=== PATIENT | male | born 1960 | race African-American/Black ===

== ENCOUNTER 2017-03-04 06:10 | Emergency (ER) | payer MEDICARE ==
[2017-03-04] MEDS ORDERED: Sterile Water 10 ML ONE (07:17)
[2017-03-04] MEDS ORDERED: methylPREDNISolone Sod Succ/PF 125 MG/2 ML VIAL ONE (07:17)
--- NOTE | 2017-03-04 10:19 | RAD ---
AP VIEW CHEST: HISTORY: Asthma. FINDINGS: AP view chest is obtained on 03/04/17. Comparison is made to previous exam from 12/22/16. AP view chest demonstrates calcification of the aorta. The lungs are well aerated. No evidence of active intrathoracic disease seen. No evidence of effusions, pneumonia, or pneumothorax seen. IMPRESSION: Unremarkable AP view chest. POS: [facility]
== END 2017-03-04 08:00 | disposition home or self-care (01) ==
LOC: ERS 06:10
DX: J45.901 Unspecified asthma with (acute) exacerbation (principal); J32.9 Chronic sinusitis, unspecified; E11.9 Type 2 diabetes mellitus without complications; I10 Essential (primary) hypertension; Z79.4 Long term (current) use of insulin; Z79.899 Other long term (current) drug therapy
CPT/HCPCS: 71010; 94640; 96374; A4216; J2930; J7620

== ENCOUNTER 2017-04-08 04:29 | Observation (INO) | payer MEDICARE ==
[2017-04-08 04:53] LABS: Sodium 137 mmol/L (135-148)
[2017-04-08 04:56] LABS: Modified Allen's Test POSITIVE; Vent NO
[2017-04-08 04:57] LABS: Mode MASK
[2017-04-08 04:59] LABS: #Basophils 0.1 thou/uL (0.0-0.2); #Eosinphils 0.9 thou/uL (0.0-0.7); #Lymphocytes 3.6 thou/uL (1.20-3.40); #Monocytes 0.9 thou/uL (0.11-0.59); #Neutrophils 5.6 thou/uL (1.40-6.50); %Basophils 1.3 % (0.0-1.0); %Eosinophils 8.5 % (0.0-10.0); %Lymphocytes 32.5 % (21.0-51.0); %Monocytes 7.7 % (0.0-10.0); Hematocrit 50.8 % (42.0-52.0); Mean Platelet Volume 7.1 fL (7.4-10.4); Red Blood Cell (RBC) Count 5.51 mill/uL (4.70-6.10); White Blood Cell (WBC) Count 11.2 thou/uL (4.8-10.8)
[2017-04-08 05:23] LABS: ALT (SGPT) 74 U/L (8-55); AST (SGOT) 77 U/L (5-34); Alkaline Phosphatase 100 U/L (40-150); Anion Gap 14 mmol/L (10-20); BUN (Urea Nitrogen) 19 mg/dL (8.4-25.7); Bilirubin, Total 0.4 mg/dL (0.2-1.2); Calc. Creatinine Clearance 0 mL/min (70-130); Calcium 8.9 mg/dL (7.8-10.44); Carbon Dioxide 26 mmol/L (22-29); Chloride 101 mmol/L (98-107); Estimated GFR-MDRD 67; Globulin 4.5 g/dL (2.4-3.5); Protein, Total 7.7 g/dL (6.0-8.3)
[2017-04-08 05:26] LABS: Troponin I Less than 0.010 ng/mL (< 0.028)
[2017-04-08] MEDS ORDERED: Albuterol Sulfate 2.5 mg/3 ml Neb ONE (05:29)
[2017-04-08] MEDS ORDERED: Senokot 8.6 MG TAB PO PRN (08:10)
[2017-04-08] MEDS ORDERED: Ondansetron ODT 4 MG TAB PO PRN (08:10)
[2017-04-08] MEDS ORDERED: Acetaminophen 325 MG TAB PO PRN (08:10)
[2017-04-08] MEDS ORDERED: Ondansetron HCl/PF 4 MG/2 ML Vial IVP PRN (08:10)
[2017-04-08] MEDS ORDERED: hydrALAZINE 20 MG/ML VIAL SLOW IVP PRN (08:10)
[2017-04-08] MEDS ORDERED: Chloraseptic Spray 180 ml Bottle PO PRN (08:10)
[2017-04-08] MEDS ORDERED: Sodium Chloride 0.65% Nasal 44 ML BOT EA NARE PRN (08:10)
[2017-04-08] MEDS ORDERED: Eucerin (Mineral Oil/Petrolatum,White) 30 gm Jar TOP PRN (08:10)
[2017-04-08] MEDS ORDERED: Artificial Tears 18 DROP/0.9 ML EA EYE PRN (08:10)
[2017-04-08] MEDS ORDERED: cloNIDine 0.1 MG TAB PO PRN (08:10)
[2017-04-08] MEDS ORDERED: Loperamide HCl 2 MG CAP PO PRN (08:10)
[2017-04-08] MEDS ORDERED: Milk Of Magnesia 30 ML UDCUP PO PRN (08:10)
[2017-04-08] MEDS ORDERED: Sodium Chloride 0.9% 1,000 ML IV SCH (08:10)
[2017-04-08] MEDS ORDERED: Dextrose 5% in Water 1,000 ML IV PRN (08:10)
[2017-04-08] MEDS ORDERED: Benzonatate 100 MG CAP PO PRN (08:10)
[2017-04-08] MEDS ORDERED: HYDROcodone/Acetaminophen 10/325 mg Tablet PO PRN (08:10)
[2017-04-08] MEDS ORDERED: Zolpidem Tartrate 5 MG TAB PO PRN (08:10)
[2017-04-08] MEDS ORDERED: metFORMIN 500 MG TAB PO SCH ×2 (08:10→08:30)
[2017-04-08] MEDS ORDERED: Dextrose 50% Abboject 50 ML SYRINGE SLOW IVP PRN (08:10)
[2017-04-08] MEDS ORDERED: HumaLOG 300 UNITS/3 ML VIAL SC PRN (08:10)
[2017-04-08] MEDS ORDERED: Loratadine 10 MG TAB PO PRN (08:10)
[2017-04-08] MEDS ORDERED: Mag-Al 1200 mg/1200 mg/30 ML UDCUP PO PRN (08:10)
[2017-04-08 08:13] LABS: Troponin I Less than 0.010 ng/mL (< 0.028)
[2017-04-08 08:22] VITALS: BMI 31.8
--- NOTE | 2017-04-08 08:34 | RAD ---
1 VIEW CHEST: Date: 04/08/17 COMPARISON: 03/04/17. HISTORY: Shortness of breath. FINDINGS: Portable upright chest demonstrates atherosclerosis of the aorta. Normal cardiac silhouette. Pulmona ry vessels and hilum are normal. Costophrenic angles are clear. No mass. No consolidation. No osseou s abnormalities or pneumothorax. IMPRESSION: 1. No acute cardiopulmonary process. 2. Atherosclerosis. POS: [facility]
[2017-04-08] MEDS ORDERED: FLU VACC QS2017-18 36 mo. & older 0.5 ML SYRINGE IM ONE (08:45)
[2017-04-08] MEDS: guaiFENesin ER 600 MG TAB PO SCH ×2 (09:32→20:20)
[2017-04-08] MEDS: Amlodipine 10 MG TAB PO SCH (09:33)
[2017-04-08] MEDS: cloNIDine 0.1 MG TAB PO SCH ×2 (09:34→20:20)
[2017-04-08] MEDS: Lisinopril 20 MG TAB PO SCH ×2 (09:35→20:20)
[2017-04-08] MEDS: Fluticasone Propionate Nasal Spray 16 gm Bottle NASAL SCH (09:36)
[2017-04-08] MEDS: Tamsulosin HCl 0.4 MG CAP PO SCH (09:36)
[2017-04-08] MEDS: HumaLOG 300 UNITS/3 ML VIAL SC PRN ×3 (12:15→17:24)
--- NOTE | 2017-04-08 14:05 | HP ---
PRIMARY CARE PHYSICIAN: Dr. Yara Gilmore. REASON FOR ADMISSION: COPD exacerbation, acute hypoxic respiratory failure. HISTORY OF PRESENT ILLNESS: A 56-year-old -[place] male who has underlying history of COPD as well as ex-smoker, who came to the emergency room for evaluation of increasing shortness of breath. Patient reports that for the last one week, he has difficulty breathing. He was trying to avoid hospitalization by using more and more his nebulizations. For the last couple of days, he was feeling more short of breath and that is why he was needing more and more nebulization as well, but he was trying to avoid to come to the emergency room. Last night, he was not able to make it and he was not able to breathe at all and that is why he has to call paramedics and he went to his home , he was saturating 87%. The patient was given albuterol nebulization and Solu- Medrol in the root, but when he arrived to the emergency room, he was still short of breath and he was not feeling up to his normal. In the emergency room, he was treated with again one more time nebulization and after that the patient felt better, but he was still not feeling up to his baseline and that is why we decided to keep this patient in the hospital. The patient reports that when he was feeling shortness of breath. He was feeling tightness in his chest and he was also feeling mild diaphoresis. He denies any recent sick exposure. He denies any recent allergy symptoms. He denies any nasal stuffiness. He denies any cough, hemoptysis or productive of sputum. He denies any fever or chills. He denies any angina. He denies any UTI symptoms. He denies any constipation or diarrhea. The patient reports that his shortness of breath is gotten worse because of weather change. REVIEW OF SYSTEMS: The following complete review of systems was negative, unless otherwise mentioned in the HPI or below: CONSTITUTIONAL: Weight loss or gain, ability to conduct usual activities. SKIN: Rash, itching. EYES: Double vision, pain. ENT/MOUTH: Nose bleeding, neck stiffness, pain, tenderness. CARDIOVASCULAR: Palpitations, dyspnea on exertion, orthopnea. RESPIRATORY: Shortness of breath, wheezing, cough, hemoptysis, fever or night sweats. GASTROINTESTINAL: Poor appetite, abdominal pain, heartburn, nausea, vomiting, constipation, or diarrhea. GENITOURINARY: Urgency, frequency, dysuria, nocturia. MUSCULOSKELETAL: Pain, swelling. NEUROLOGIC/PSYCHIATRIC: Anxiety, depression. ALLERGY/IMMUNOLOGIC: Skin rash, bleeding tendency. Please see my HPI for pertinent positives and negatives. All other review of system reviewed and negative except as mentioned in the HPI. PAST MEDICAL HISTORY: Diabetes type 2 on insulin, hypertension, benign enlargement of prostate and COPD. PAST SURGICAL HISTORY: The patient reports that he had sinus surgery in the past. PAST PSYCHIATRIC HISTORY: Reviewed and negative. SOCIAL HISTORY: Patient is a former drug abuser. He abused marijuana, but he denies any ongoing abuse of marijuana. He also reports that he quit smoking for about 1 year. He drinks alcohol socially occasionally. He also denies any other illicit drug abuse for the last one year. He lives at home with family. FAMILY HISTORY: No strong family history of premature coronary artery disease, stroke or cancer. ALLERGIES: ASPIRIN, IODINE, LATEX and NSAID. CURRENT HOME MEDICATIONS: Lisinopril 20 mg twice daily, Flomax 0.4 mg p.o. daily, albuterol nebulization and inhaler as needed basis, amlodipine 10 mg daily, metformin 1000 mg twice daily, Lantus 30 units at bedtime, Humalog insulin as per sliding scale, clonidine 0.1 mg twice daily, cetirizine 10 mg daily and prednisone. EMERGENCY ROOM COURSE: Patient has received Solu-Medrol and DuoNeb therapy by paramedics and the patient was given another round of albuterol nebulization in the emergency room. PHYSICAL EXAMINATION: VITAL SIGNS: On arrival, blood pressure 158/92, pulse 94, respiratory rate 18, temperature 98.4, saturation 94% on 4 liter oxygen. Weight 108.9 kilograms. GENERAL: Patient is currently alert, awake, no obvious acute distress. HEAD: Normocephalic, atraumatic. EYES: Pupils round, reactive to light. Extraocular muscles intact. ENT: Oropharynx within normal limits. Moist mucous membranes. No oral lesions. No pharyngeal erythema, no exudate. NECK: Supple. Range of motion is normal. No meningeal signs of irritation. LUNGS: Bilateral end expiratory wheezing heard. No rales, no rhonchi. No accessory muscles of respiration in use. CARDIAC: S1, S2 regular. No murmur, no gallop, no rub. ABDOMEN: Obesity present. Bowel sounds present, nontender, nondistended. No organomegaly, no mass, no suprapubic tenderness. BACK: No CVA tenderness. EXTREMITIES: Upper extremity: Passive movement of all joints are normal. Lower extremity: No edema. Good peripheral pulsation. SKIN: No skin rash. HEMATOLOGICAL: No lymphadenopathy. PSYCHIATRIC: Normal affect. SIGNIFICANT LABS: 1. EKG based on my review left anterior fascicular block, left atrial enlargement. 2. Chest x-ray based on my review, no acute cardiopulmonary process. CBC: WBC 11.2, hemoglobin 16.0, platelets 342. ABG: pH 7.41, CO2 41.5, O2 66.1, bicarbonate 25.9, saturation 94.1. 3. BMP: Sodium 137, potassium 3.6, chloride 101, carbon dioxide 26, BUN 19, creatinine 1.33, glucose 239, calcium 8.9. 4. LFTs: AST 77, ALT 74, alkaline phosphatase 100. Albumin 3.2. Cardiac enzymes negative x2. BNP is 21.3. ASSESSMENT AND PLAN/IMPRESSION: 1. Acute chronic obstructive pulmonary disease exacerbation. This patient's clinical presentation is consistent with chronic obstructive pulmonary disease flareup, most likely precipitated by weather changes. At this point, the patient has almost 60% improvement when I saw last in the emergency room. We will keep this patient as an observation status. We are expecting that he will get better in next 24-48 hours. While in hospital, we will continue with DuoNeb q.4 hourly, Dulera 2 puffs inhalation b.i.d., Solu-Medrol 40 mg IV q.6 hourly, Mucinex 600 mg twice daily, Tessalon and Robitussin p.r.n. basis. Patient will get flu vaccination during this admission. We will monitor his oxygen saturation. We will also consider empiric antibiotic therapy with Levaquin 500 mg daily. We will also add Flonase nasal spray. 2. Acute hypoxic respiratory failure that was on admission, but improved when I saw this patient. At this point the patient does not need oxygen therapy, but we will continue to watch his oxygen saturation at least before discharge. We will also recheck his oxygen after walking 4 minutes. 3. Diabetes type 2. We are expecting with that will get worse with steroid therapy, but will continue with Levemir insulin 30 units subQ at bedtime and Humalog insulin as per sliding scale aggressively and will monitor Accu-Chek every 3 hourly and cover with each time with insulin to avoid hyperglycemia from steroid. 4. Hypertension. We will continue lisinopril 20 mg twice daily, clonidine 0.1 mg twice daily and amlodipine 10 mg p.o. daily and will also use p.r.n. hydralazine. 5. Benign enlargement of prostate. We will continue Flomax 0.4 mg p.o. daily. 6. Deep venous thrombosis prophylaxis not needed because we are expecting discharge in 24 hours. 7. Gastrointestinal prophylaxis, Protonix 40 mg p.o. daily. 8. CODE STATUS: The patient is FULL CODE. Patient does not have any surrogate decision maker. 9. Transamenitis: CHECK hepatitis profile and repeat LFT Disposition plan based on clinical course. We are expecting patient's stay in the hospital for 24-48 hours. Plan of care discussed with the patient and family member. EVAN
[2017-04-08] MEDS: metFORMIN 500 MG TAB PO SCH (17:43)
[2017-04-08] MEDS: Mometasone/Formoterol 120 PUFF INHALER INH SCH (18:11)
[2017-04-08] MEDS ORDERED: Insulin Detemir 100 UNITS/ML 30 UNITS in Pre-Filled Syringe 1 EACH SC SCH (21:00)
[2017-04-09] MEDS: Diabetic Tussin 200 MG/10 ML UDCUP PO PRN ×2 (01:45→09:27)
[2017-04-09] MEDS ORDERED: Lidocaine 2% Viscous Solution 20 ML, Aluminum & Magnesium Hydroxide 30 ML, Donnatal Eli... SSW SCH ×3 (02:15)
[2017-04-09 05:23] LABS: #Lymphocytes 1.7 thou/uL (1.20-3.40); #Monocytes 0.5 thou/uL (0.11-0.59); #Neutrophils 14.6 thou/uL (1.40-6.50); %Basophils 0.2 % (0.0-1.0); %Eosinophils 0.1 % (0.0-10.0); %Lymphocytes 10.2 % (21.0-51.0); %Monocytes 2.8 % (0.0-10.0); Hematocrit 49.3 % (42.0-52.0); Mean Platelet Volume 7.3 fL (7.4-10.4); Red Blood Cell (RBC) Count 5.28 mill/uL (4.70-6.10); White Blood Cell (WBC) Count 16.9 thou/uL (4.8-10.8)
[2017-04-09] MEDS: HumaLOG 300 UNITS/3 ML VIAL SC PRN (05:34)
[2017-04-09 05:44] LABS: ALT (SGPT) 69 U/L (8-55); AST (SGOT) 59 U/L (5-34); Alkaline Phosphatase 79 U/L (40-150); Anion Gap 15 mmol/L (10-20); BUN (Urea Nitrogen) 19 mg/dL (8.4-25.7); Bilirubin, Total 0.3 mg/dL (0.2-1.2); Calc. Creatinine Clearance 103 mL/min (70-130); Calcium 8.8 mg/dL (7.8-10.44); Carbon Dioxide 25 mmol/L (22-29); Chloride 100 mmol/L (98-107); Estimated GFR-MDRD 73; Globulin 4.1 g/dL (2.4-3.5); Protein, Total 7.3 g/dL (6.0-8.3)
[2017-04-09] MEDS: Mometasone/Formoterol 120 PUFF INHALER INH SCH (07:22)
--- NOTE | 2017-04-09 09:17 | PDOC.PN ---
- Subjective Encounter Start Date: 04/09/17 Encounter Start Time: 09:00 Subjective: Patient feeling much better this AM. On 2L O2 but patient doesn't think -: he needs it. Cough resolved. SOB improved. - Objective Resuscitation Status: Resuscitation Status FULL:Full Resuscitation MAR Reviewed: Yes Vital Signs & Weight: Vital Signs (12 hours) Temp Pulse Resp BP Pulse Ox 04/09/17 07:34 98.4 F 98 24 H 152/89 H 92 L 04/09/17 07:22 85 16 94 L 04/09/17 07:20 85 16 94 L 04/09/17 03:13 98.2 F 101 H 24 H 140/82 92 L 04/09/17 01:53 102 H 14 92 L 04/08/17 23:00 98.4 F 104 H 24 H 166/96 H 92 L 04/08/17 22:22 102 H 14 93 L Weight Weight 245 lb I&O: 04/08/17 04/09/17 04/10/17 06:59 06:59 06:59 Intake Total 2851 Output Total 1775 Balance 1076 Result Diagrams: 04/09/17 05:00 04/09/17 05:00 Additional Labs: Accuchecks 04/09/17 04/08/17 04/08/17 05:09 23:06 20:19 POC Glucose 184 H 161 H 220 H 04/08/17 04/08/17 04/08/17 17:15 14:35 11:11 POC Glucose 259 H 388 H 436 H 04/08/17 09:17 POC Glucose 331 H Phys Exam - Physical Examination Constitutional: NAD HEENT: moist MMs bilateral expiratory wheezes, decent airmovement throughout, nml WOB Cardiovascular: RRR, no significant murmur Gastrointestinal: soft, positive bowel sounds Musculoskeletal: no edema Neurological: non-focal, moves all 4 limbs Psychiatric: normal affect, A&O x 3 Dx/Plan (1) COPD exacerbation Code(s): J44.1 - CHRONIC OBSTRUCTIVE PULMONARY DISEASE W (ACUTE) EXACERBATION Status: Acute Comment: Improved, d/c oxygen and home if does well off of it. (2) Acute and chronic respiratory failure with hypoxia Code(s): J96.21 - ACUTE AND CHRONIC RESPIRATORY FAILURE WITH HYPOXIA Status: Acute (3) Diabetes mellitus type 2 in obese Code(s): E11.69 - TYPE 2 DIABETES MELLITUS WITH OTHER SPECIFIED COMPLICATION; E66.9 - OBESITY, UNSPECIFIED Status: Chronic (4) Hypertension Code(s): I10 - ESSENTIAL (PRIMARY) HYPERTENSION Status: Chronic - Plan cont current plan of care Continue steroids. -: F/u with PCP later this week. * . - Discharge Day Encounter end time: 10:00
[2017-04-09] MEDS: metFORMIN 500 MG TAB PO SCH (09:25)
[2017-04-09] MEDS: Amlodipine 10 MG TAB PO SCH (09:26)
[2017-04-09] MEDS: cloNIDine 0.1 MG TAB PO SCH (09:26)
[2017-04-09] MEDS: guaiFENesin ER 600 MG TAB PO SCH (09:27)
[2017-04-09] MEDS: Fluticasone Propionate Nasal Spray 16 gm Bottle NASAL SCH (09:27)
[2017-04-09] MEDS: Lisinopril 20 MG TAB PO SCH (09:27)
[2017-04-09] MEDS: Tamsulosin HCl 0.4 MG CAP PO SCH (09:27)
[2017-04-09 11:48] VITALS: BP 136/85; TEMP 98
[2017-04-09] MEDS ORDERED: Sterile Water 10 ML ONE (13:05)
--- NOTE | 2017-04-09 17:21 | DIS ---
DATE OF ADMISSION: 04/08/2017 DATE OF DISCHARGE: 04/09/2017 PRIMARY CARE PHYSICIAN: Yara Gilmore M.D. ADMISSION DIAGNOSES: 1. Acute exacerbation of chronic obstructive pulmonary disease. 2. Acute hypoxic respiratory failure. 3. Diabetes mellitus type 2. 4. Hypertension. 5. Transaminitis. DISCHARGE DIAGNOSES: 1. Acute chronic obstructive pulmonary disease exacerbation, improved. 2. Acute hypoxic respiratory failure, resolved. 3. Diabetes mellitus type 2. 4. Hypertension. 5. Transaminitis, mild, resolving. CONSULTATIONS: None. PROCEDURE PERFORMED: None. PERTINENT LABORATORY DATA: The patient had a white blood cell count of 11,000 on admission, went up to 16,000 after steroids. Complete metabolic panel was notable for creatinine of 1.33, which decre ased to 1.23 at discharge. The AST and ALT were mildly elevated at 77 and 74. This is down to 15 a nd 69 at discharge without any other abnormalities. Cardiac marker set was negative x2 on admission . Blood sugars in the 300s, down to 180 at discharge. SUMMARY OF HOSPITAL COURSE: This is a 56-year-old -[place] male with history of COPD second michelle to industrial exposure and previous smoking, came in with worsening shortness breath of one week along with coughing and production of sputum. He was found to be hypoxic on room air, was given al buterol nebulization, Solu-Medrol in the emergency room and put on observation in the hospital, he i mproved overnight. On the day of discharge, he was able to be taken off oxygen with his O2 sats rem aining at 92%. He was able to ambulate without significant shortness of breath and was ready to go home. He did have some elevated blood sugars initially in the hospital; however, these came down wi th his resumption of his home insulin. The patient did have minimal elevations of his transaminases and these had improved in his second hospital day and to be followed up as an outpatient. He will be discharged home on steroids. He was given a dose of Levaquin in the hospital; however, there is no evidence of pneumonia on chest x-ray and initially elevated white blood cell count, so we will di scontinue the antibiotics. DISCHARGE MANAGEMENT: Discharged home. Follow up with Dr. Yara Gilmore in next 3-5 days and consi laci starting daily inhaled steroid if they can find one that his insurance pays for. ACTIVITY: As tolerated. DIET: Diabetic diet. DISCHARGE MEDICATIONS: 1. Clonidine 0.1 mg twice a day. 2. Lantus 30 units subcutaneous at night. 3. Humalog sliding scale. 4. Zyrtec 10 mg daily. 5. Metformin 1000 mg twice a day. 6. Amlodipine 10 mg daily. 7. Albuterol inhaler and nebulizer as needed. 8. Tamsulosin 0.4 mg at night. 9. Lisinopril 20 mg twice a day. 10. Prednisone 50 mg daily for the next 6 days. 11. Mucinex extended release 600 mg twice a day as needed. 12. Protonix 40 mg daily for the next week while he is on steroids. 13. Tessalon Perles 100 mg every 4 hours as needed for coughing.
== END 2017-04-09 14:18 | disposition home or self-care (01) ==
LOC: ERS 04:29 → 2SW 07:46
PROVIDERS: ADMIT Internal Medicine; ATTEND Internal Medicine
DX: J44.1 Chronic obstructive pulmonary disease with (acute) exacerbation (principal); J96.01 Acute respiratory failure with hypoxia; E11.9 Type 2 diabetes mellitus without complications; I10 Essential (primary) hypertension; R74.0 Nonspecific elevation of levels of transaminase and lactic acid dehydrogenase [LDH]; E66.9 Obesity, unspecified; N40.0 Benign prostatic hyperplasia without lower urinary tract symptoms; Z68.32 Body mass index [BMI] 32.0-32.9, adult; Z79.4 Long term (current) use of insulin; Z79.52 Long term (current) use of systemic steroids; Z79.899 Other long term (current) drug therapy; Z91.041 Radiographic dye allergy status; Z91.040 Latex allergy status; Z88.6 Allergy status to analgesic agent; Z98.890 Other specified postprocedural states; Z77.29 Contact with and (suspected) exposure to other hazardous substances; Z87.891 Personal history of nicotine dependence; Z86.59 Personal history of other mental and behavioral disorders
CPT/HCPCS: 71010; 80053 ×2; 82553; 82805; 82962 ×2; 83880; 84484 ×2; 85025 ×2; 93005; 94640 ×5; 94644; 96361; 96365; 96366; 96375; 96376 ×2; 99285; G0008; G0378; Q2036; 36415; 36416; 90471; 90682; A4216; J1815; J1956; J2920; J7611; J7620

== ENCOUNTER 2017-06-13 01:10 | Emergency (ER) | payer MEDICARE ==
[2017-06-13 02:38] LABS: #Basophils 0.2 thou/uL (0.0-0.2); #Eosinphils 0.7 thou/uL (0.0-0.7); #Lymphocytes 1.9 thou/uL (1.20-3.40); #Monocytes 0.5 thou/uL (0.11-0.59); #Neutrophils 6.1 thou/uL (1.40-6.50); %Basophils 2.6 % (0.0-1.0); %Eosinophils 7.9 % (0.0-10.0); %Lymphocytes 19.9 % (21.0-51.0); %Monocytes 5.7 % (0.0-10.0); %Neutrophils 63.9 % (42.0-75.0); Hemoglobin 15.9 g/dL (14.0-18.0); Mean Corpuscular HGB CONC 33.3 g/dL (32.0-36.0); Mean Corpuscular Hemoglobin 31.1 pg (27.0-31.0); Mean Corpuscular Volume 93.6 fl (80.0-94.0); Mean Platelet Volume 7.2 fL (7.4-10.4); Platelet Count 339 thou/uL (130-400); RBC Distribution Width 12.6 % (11.5-14.5); Red Blood Cell (RBC) Count 5.11 mill/uL (4.70-6.10); White Blood Cell (WBC) Count 9.5 thou/uL (4.8-10.8)
[2017-06-13 03:14] LABS: ALT (SGPT) 83 U/L (8-55); AST (SGOT) 93 U/L (5-34); Albumin 3.2 g/dL (3.5-5.0); Alkaline Phosphatase 96 U/L (40-150); Anion Gap 15 mmol/L (10-20); BUN (Urea Nitrogen) 13 mg/dL (8.4-25.7); Bilirubin, Total 0.3 mg/dL (0.2-1.2); Calc. Creatinine Clearance 0 mL/min (70-130); Calcium 9.2 mg/dL (7.8-10.44); Carbon Dioxide 27 mmol/L (22-29); Chloride 100 mmol/L (98-107); Estimated GFR-MDRD 62; Globulin 4.4 g/dL (2.4-3.5); Glucose 212 mg/dL (70-105); Potassium 3.9 mmol/L (3.5-5.1); Protein, Total 7.6 g/dL (6.0-8.3); Sodium 138 mmol/L (136-145)
--- NOTE | 2017-06-13 08:12 | RAD ---
CHEST ONE VIEW: HISTORY: Shortness of breath. COMPARISON: Chest, one view, 04/08/2017. FINDINGS: There is mild prominence of the hilum bilaterally. This is similar dating back to 2009. No pneumoth orax. No large effusion. The cardiac silhouette and mediastinal contours are similar. IMPRESSION: 1. No acute intrathoracic abnormality. 2. Prominence of the hilum bilaterally may be sequela of pulmonary arterial hypertension. POS: [facility]
== END 2017-06-13 03:50 | disposition home or self-care (01) ==
LOC: ERS 01:10
DX: J45.901 Unspecified asthma with (acute) exacerbation (principal); I10 Essential (primary) hypertension; E11.9 Type 2 diabetes mellitus without complications; J44.9 Chronic obstructive pulmonary disease, unspecified; Z79.4 Long term (current) use of insulin; Z79.899 Other long term (current) drug therapy
CPT/HCPCS: 36415; 71045; 80053; 85025; 94640; J7620

== ENCOUNTER 2018-03-07 10:17 | Emergency (ER) | payer MEDICARE ==
[2018-03-07 11:00] LABS: Bilirubin Negative (Negative); Blood, Urine Small (Negative); Glucose, Urine (Dipstick) Negative (Negative); Leukocyte Negative (Negative); Nitrite Negative (Negative); Protein, Urine (Dipstick) 100 mg/dL (Neg-Trace); Urobilinogen 0.2 mg/dL (0.2-1.0); pH, Urine 6.5 (5.0-9.0)
[2018-03-07 11:06] LABS: Clarity CLEAR (Clear)
[2018-03-07 11:10] LABS: #Basophils 0.1 thou/uL (0.0-0.2); #Eosinphils 1.1 thou/uL (0.0-0.7); #Lymphocytes 3.9 thou/uL (1.20-3.40); #Monocytes 0.7 thou/uL (0.11-0.59); #Neutrophils 5.2 thou/uL (1.40-6.50); %Basophils 1.2 % (0.0-1.0); %Eosinophils 10.2 % (0.0-10.0); %Lymphocytes 35.3 % (21.0-51.0); %Monocytes 6.4 % (0.0-10.0); %Neutrophils 46.8 % (42.0-75.0); Hemoglobin 15.8 g/dL (14.0-18.0); Mean Corpuscular HGB CONC 33.1 g/dL (32.0-36.0); Mean Corpuscular Hemoglobin 30.2 pg (27.0-31.0); Mean Corpuscular Volume 91.4 fL (78.0-98.0); Mean Platelet Volume 7.7 fL (7.4-10.4); Platelet Count 337 thou/uL (130-400); RBC Distribution Width 12.5 % (11.5-14.5); Red Blood Cell (RBC) Count 5.23 mill/uL (4.70-6.10); White Blood Cell (WBC) Count 11.1 thou/uL (4.8-10.8)
[2018-03-07 11:31] LABS: ALT (SGPT) 70 U/L (8-55); AST (SGOT) 61 U/L (5-34); Albumin 3.4 g/dL (3.5-5.0); Alkaline Phosphatase 112 U/L (40-150); Anion Gap 13 mmol/L (10-20); BUN (Urea Nitrogen) 13 mg/dL (8.4-25.7); Bilirubin, Total 0.3 mg/dL (0.2-1.2); Calc. Creatinine Clearance 0 mL/min (70-130); Calcium 9.1 mg/dL (7.8-10.44); Carbon Dioxide 24 mmol/L (22-29); Chloride 104 mmol/L (98-107); Estimated GFR-MDRD 67; Globulin 4.6 g/dL (2.4-3.5); Glucose 162 mg/dL (70-105); Potassium 3.7 mmol/L (3.5-5.1); Sodium 137 mmol/L (136-145)
[2018-03-07 11:37] LABS: Troponin I Less than 0.010 ng/mL (< 0.028)
--- NOTE | 2018-03-07 12:03 | RAD ---
2 VIEWS CHEST: Date: 03/07/18 PROVIDED CLINICAL HISTORY: Dyspnea. FINDINGS: Comparison with 06/13/17. Cardiac and mediastinal silhouette is within normal limits. Vascular calcification involves the aorti c arch. No focal consolidation, pleural fluid, or pneumothorax apparent. IMPRESSION: No evidence for an acute cardiopulmonary process. POS: [facility]
[2018-03-07] MEDS ORDERED: predniSONE 20 MG TAB ONE (12:31)
== END 2018-03-07 12:30 | disposition home or self-care (01) ==
LOC: ERS 10:17
DX: J44.1 Chronic obstructive pulmonary disease with (acute) exacerbation (principal); H60.92 Unspecified otitis externa, left ear; E11.9 Type 2 diabetes mellitus without complications; I10 Essential (primary) hypertension; J44.9 Chronic obstructive pulmonary disease, unspecified; Z79.4 Long term (current) use of insulin; Z79.899 Other long term (current) drug therapy
CPT/HCPCS: 36415; 71046; 80053; 81003; 81015; 82553; 83880; 84484; 85025; 93005; J7506

== ENCOUNTER 2018-03-08 17:12 | Inpatient (IN) | payer MEDICARE ==
[2018-03-08 17:24] LABS: #Monocytes 0.2 thou/uL (0.11-0.59); #Neutrophils 9.9 thou/uL (1.40-6.50); %Basophils 0.1 % (0.0-1.0); %Eosinophils 0.2 % (0.0-10.0); %Lymphocytes 16.5 % (21.0-51.0); %Monocytes 1.8 % (0.0-10.0); %Neutrophils 81.4 % (42.0-75.0); Hemoglobin 15.2 g/dL (14.0-18.0); Mean Corpuscular HGB CONC 32.3 g/dL (32.0-36.0); Mean Corpuscular Hemoglobin 29.7 pg (27.0-31.0); Mean Corpuscular Volume 91.9 fL (78.0-98.0); Mean Platelet Volume 7.6 fL (7.4-10.4); Platelet Count 373 thou/uL (130-400); RBC Distribution Width 12.5 % (11.5-14.5); Red Blood Cell (RBC) Count 5.12 mill/uL (4.70-6.10); White Blood Cell (WBC) Count 12.1 thou/uL (4.8-10.8)
[2018-03-08 17:31] LABS: Prothrombin Time 13.5 SEC (12.0-14.7)
[2018-03-08 17:32] LABS: PTT 29.3 SEC (22.9-36.1)
[2018-03-08 17:36] LABS: ALT (SGPT) 64 U/L (8-55); AST (SGOT) 56 U/L (5-34); Albumin 3.3 g/dL (3.5-5.0); Alkaline Phosphatase 96 U/L (40-150); Anion Gap 13 mmol/L (10-20); BUN (Urea Nitrogen) 16 mg/dL (8.4-25.7); Bilirubin, Total 0.4 mg/dL (0.2-1.2); Calc. Creatinine Clearance 0 mL/min (70-130); Calcium 8.7 mg/dL (7.8-10.44); Carbon Dioxide 22 mmol/L (22-29); Chloride 100 mmol/L (98-107); Estimated GFR-MDRD 45; Globulin 4.4 g/dL (2.4-3.5); Glucose 382 mg/dL (70-105); Potassium 4.4 mmol/L (3.5-5.1); Protein, Total 7.7 g/dL (6.0-8.3); Sodium 131 mmol/L (136-145)
[2018-03-08 17:41] LABS: CKMB 5.6 ng/mL (0-6.6); Troponin I Less than 0.010 ng/mL (< 0.028)
--- NOTE | 2018-03-08 18:18 | CT ---
CT BRAIN WITHOUT CONTRAST: 03/08/18 HISTORY: Stroke alert. Weakness, facial droop and numbness in the left side. FINDINGS: No evidence of acute infarct, hemorrhage, midline shift or abnormal extra-axial fluid collections are seen. The ventricular size is appropriate and the basilar cisterns patent. The bony calvarium is int act. There is mucosal disease in the paranasal sinuses. IMPRESSION: No CT evidence of acute intracranial process. Findings were discussed over the telephone with ER physician, Dr. Connor Doherty at 5:31 p.m. POS: [facility]
--- NOTE | 2018-03-08 18:28 | RAD ---
PORTABLE CHEST ONE VIEW: 03/08/18 at 5:14 p.m. HISTORY: Shortness of breath. FINDINGS: Comparison is made with exam of 06/13/17. There is continued elevation of the right hemidiaphragm. The heart size is normal. The lungs are well expanded without areas of consolidation, pneumothoraces or pleural effusions. IMPRESSION: No radiographic evidence of acute cardiopulmonary process. POS: [facility]
[2018-03-08] MEDS ORDERED: Dextrose 5% in Water 1,000 ML IV PRN (21:40)
[2018-03-08] MEDS ORDERED: Dextrose 50% Abboject 50 ML SYRINGE SLOW IVP PRN (21:40)
[2018-03-08] MEDS ORDERED: Acetaminophen 325 MG TAB PO PRN (21:40)
[2018-03-08] MEDS ORDERED: Ondansetron ODT 4 MG TAB PO PRN (21:40)
[2018-03-08 21:50] VITALS: BMI 32.8
[2018-03-08 22:16] LABS: Anion Gap 13 mmol/L (10-20); BUN (Urea Nitrogen) 18 mg/dL (8.4-25.7); Calc. Creatinine Clearance 80 mL/min (70-130); Calcium 8.9 mg/dL (7.8-10.44); Carbon Dioxide 25 mmol/L (22-29); Chloride 104 mmol/L (98-107); Estimated GFR-MDRD 54; Glucose 202 mg/dL (70-105); Potassium 3.8 mmol/L (3.5-5.1); Sodium 138 mmol/L (136-145)
--- NOTE | 2018-03-08 23:01 | PDOC.FPRHP ---
- History of Present Illness Chief Complaint: SOB, weakness left sided History of Present Illness: This is a 57 yo M here for CC of SOB, stroke-like symptoms. The patient began having weakness on the left side of his and left arm around 1400 yesterday (03/07 ). The patient states his left face and arm felt numb and weak. He noted slurred speech as well as drooling. The patient states he also felt off balance. The patient states his symptoms gradually improved so he did not come to ER. Today, the patient's symptoms worsened again around 1400 and he decided to come to the ER. Patient endorse headache on the left sided that is intermittent. States it is dull. The patient was in the ER on the morning of for COPD exacerbation and was found to have an ear infection. The patient was given breathing treatments and started on abx. The patient states his SOB is much improved. He denies fever, vision change, NVD, chest pain, abdominal pain, LOC, or LE swelling. - Allergies/Adverse Reactions Allergies Allergy/AdvReac Type Severity Reaction Status Date / Time aspirin Allergy Severe Verified 03/08/18 21:57 latex Allergy Mild Verified 03/08/18 21:57 iodine Allergy Verified 03/08/18 21:57 NSAIDS (Non-Steroidal Allergy Verified 03/08/18 21:57 Anti-Inflamma - Home Medications Medication Instructions Recorded Confirmed Type Amlodipine [Norvasc] 10 mg PO DAILY 11/06/15 03/08/18 History HumaLOG [HumaLOG Vial] 0 unit SC TID- PRN 11/06/15 03/08/18 History Lisinopril 20 mg PO BID 11/06/15 03/08/18 History Tamsulosin HCl [Flomax] 0.4 mg PO HS 11/06/15 03/08/18 History cloNIDine [Catapres] 0.1 mg PO BID 11/06/15 03/08/18 History Albuterol Sulfate HFA (OR) 2 puff INH Q4H PRN 10/02/16 03/08/18 History [Proventil Hfa (or)] metFORMIN HCl 1,000 mg PO BID-WM 10/02/16 03/08/18 History Amoxicillin/Potassium Clav 1 each PO BID 03/08/18 03/08/18 History [Amox-Clav 875-125 mg Tablet] Beclomethasone Dipropionate [Qvar] 1 puff IH Q12H 03/08/18 03/08/18 History Cetirizine HCl [Zyrtec] 10 mg PO DAILY 03/08/18 03/08/18 History Insulin Glargine,Hum.Rec.Anlog 20 unit SQ SEEPHYS 03/08/18 03/08/18 History [Travonaglashley Mujica U-100] predniSONE 20 mg PO BID 03/08/18 03/08/18 History - History PMHx: DM, HTN, COPD, BPH PSHx: sinus -2009 FHx: non contributory Social: former smoker, occasional alcohol use, marijuana use 1X/mo - Review of Systems General: denies: fever/chills, weight/appetite/sleep changes, night sweats Eyes: denies: vision changes ENT: reports: other (ear pain in left ear). denies: nasal congestion, rhinorrhea Respiratory: reports: shortness of breath. denies: cough, congestion Cardiovascular: denies: chest pain, palpitation, edema Gastrointestinal: denies: nausea, vomiting, diarrhea Genitourinary: denies: dysuria, polyuria Skin: denies: rashes Musculoskeletal: denies: pain, swelling Neurological: reports: numbness, weakness (left sided). denies: syncope, seizure - Vital signs BP: 148/93 HR: 75 RR: 18 Tmax: 99 Pox: 97% on RA Wt: 113kg - Physical Exam Constitutional: NAD, awake, alert and oriented, well developed HEENT: normocephalic and atraumatic, EOMI, grossly normal vision, other ( diminished hearing on the left) Neck: FROM, no JVD Chest: no-tender to palpation, no lesions Heart: RRR, normal S1/S2, no murmurs/rubs/gallops Lungs: other (expiratory wheeze bilaterally) Abdomen: soft, non-tender, bowel sounds present, no masses/distention -Neurological: Left arm: strength 4/5 Left leg: strength 5/5 Right arm: strength 5/5 Right leg: strength 5/5 sensation intact in upper and lower extremities as well as the face tongue deviating to the left; asymmetric smile with droop on the left; diminished hearing on the left CN II- intact Skin: no rash/lesions Heme/Lymphatic: no unusual bruising or bleeding Psychiatric: normal mood and affect FMR H&P: Results - Labs Result Diagrams: 03/09/18 03:50 03/09/18 03:50 Lab results: WBC 12.1 thou/uL (4.8-10.8) H 03/08/18 17:16 Hgb 15.2 g/dL (14.0-18.0) 03/08/18 17:16 Hct 47.1 % (42.0-52.0) 03/08/18 17:16 MCV 91.9 fL (78.0-98.0) 03/08/18 17:16 Plt Count 373 thou/uL (130-400) 03/08/18 17:16 Neutrophils % 81.4 % (42.0-75.0) H 03/08/18 17:16 Sodium 138 mmol/L (136-145) 03/08/18 21:52 Potassium 3.8 mmol/L (3.5-5.1) 03/08/18 21:52 Chloride 104 mmol/L (98-107) 03/08/18 21:52 Carbon Dioxide 25 mmol/L (22-29) 03/08/18 21:52 BUN 18 mg/dL (8.4-25.7) 03/08/18 21:52 Creatinine 1.60 mg/dL (0.6-1.3) H 03/08/18 21:52 Glucose 202 mg/dL (70-105) H 03/08/18 21:52 Calcium 8.9 mg/dL (7.8-10.44) 03/08/18 21:52 Total Bilirubin 0.4 mg/dL (0.2-1.2) 03/08/18 17:16 AST 56 U/L (5-34) H 03/08/18 17:16 ALT 64 U/L (8-55) H 03/08/18 17:16 Alkaline Phosphatase 96 U/L (40-150) 03/08/18 17:16 CK-MB (CK-2) 5.6 ng/mL (0-6.6) 03/08/18 17:16 Serum Total Protein 7.7 g/dL (6.0-8.3) 03/08/18 17:16 Albumin 3.3 g/dL (3.5-5.0) L 03/08/18 17:16 FMR H&P: A/P - Problem List (1) COPD (chronic obstructive pulmonary disease) Current Visit: Yes Status: Acute (2) Otitis media Current Visit: Yes Status: Acute Code(s): H66.90 - OTITIS MEDIA, UNSPECIFIED , UNSPECIFIED EAR (3) TIA (transient ischemic attack) Current Visit: Yes Status: Acute Code(s): G45.9 - TRANSIENT CEREBRAL ISCHEMIC ATTACK, UNSPECIFIED (4) Diabetes mellitus type 2 in obese Current Visit: No Status: Chronic Code(s): E11.69 - TYPE 2 DIABETES MELLITUS WITH OTHER SPECIFIED COMPLICATION; E66.9 - OBESITY, UNSPECIFIED (5) Hypertension Current Visit: No Status: Chronic Code(s): I10 - ESSENTIAL (PRIMARY) HYPERTENSION (6) Leucocytosis Current Visit: No Status: Acute Code(s): D72.829 - ELEVATED WHITE BLOOD CELL COUNT, UNSPECIFIED (7) Transaminitis Current Visit: Yes Status: Acute Code(s): R74.0 - NONSPEC ELEV OF LEVELS OF TRANSAMNS & LACTIC ACID DEHYDRGNSE (8) KLEVER (acute kidney injury) Current Visit: Yes Status: Acute Code(s): N17.9 - ACUTE KIDNEY FAILURE, UNSPECIFIED (9) BPH (benign prostatic hyperplasia) Current Visit: Yes Status: Acute Code(s): N40.0 - BENIGN PROSTATIC HYPERPLASIA WITHOUT LOWER URINRY TRACT SYMP - Plan This is a 57 yo M here for work up for stroke. TIA vs ischemic stroke - pt's left sided weakness resolving; NIH stroke scale 4 - CT brain showed no acute bleed - Will get MRI tomorrow - Will consult neurology - Will get swallow study before advancing diet - Fall precautions KLEVER - BUN: 16, CR: 1.89 - encourage PO hydration after passed swallow study - Will recheck with CMP in AM Leukocytosis - WBC: 12.1 - Patient currently on abx for ear infxn - Will recheck with CBC in AM Transaminitis - AST: 56, ALT: 64 - likely 2/2 to NAFLD - will recheck in AM COPD - Will continue home meds - Will give breathing tx as needed HTN - Will continue home meds and monitor VS DM - Will continue home medications - mod SS - Hypoglycemic protocol in place BPH - continue home meds DISPO: pending stroke r/o work up Case discussed with Dr. Armstrong FMR H&P: Upper Level - Pertinent history 57 yo male with PMH of COPD, DMII, HTN here for SOB. Started yesterday, went to urgent care and given steroids as well as Abx for ear infection. Later yesterday he was having left hand, arm, face weakness and numbness. Assoc slurred speech. Reports all these symptoms are improving but still present. He denies any difficulty walking or weakness/numbness in legs. PCP is Dr. Gilmore in [place]. - Pertinent findings 165/107 HR: 88 Temp: 99.0 SO2: 96% on RA RR: 18 GEN: NAD, AOx3 EYES: PERRL, EOMI PULM: CTAB CARD: RRR, no m/g/r NEURO: mild weakness of left hand compared to right; lower extremity completely normal symmetrically. Difficulty with finger nose test on left side; dysdiadochokinesia of left hand; face: smile asymmetric of left smile, eyebrow raise decreased on the left, tongue deviates to the left when sticking out, decreased sensation on the left compared to the right CT head: NAD CXR: normal - Plan Date/Time: 03/08/18 6628 I, Connor Hector DO, have evaluated this patient and agree with findings/plan as outlined by paid intern resident. Pertinent changes/additions are listed here. Cerebrovascular accident No sign of bleed Patient outside of the 24 hour window so we will continue home BP meds Improving symptoms, will continue to monitor with NIH checks Admit to stroke Patient reports allergy to aspirin so we will not give that Statin, clopidogrel MRI in the morning KLEVER so recheck labs in the morning, will likely be ok to do CTA head and neck Diabetes mellitus II Continue home basaglar bid SSI Accuchecks qACHS Hypertension Continue home meds Acute Kidney injury Improving, recheck in AM Otitis media Continue amoxicillin COPD Continue home meds BPH Continue home meds Attending Addendum - Attending Addendum Date/Time: 03/08/182112 I personally evaluated the patient and discussed the management with Dr. Gomez. I agree with the History, Examination, Assessment and Plan documented above with any addition or exceptions noted below. The patient presents with left upper extremity weakness and facial droop that has occured twice in the past 24 hours. 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 He also has a left otitis media and will continue oral antibiotics for this. Pt has KLEVER and will encourage oral fluids. MRI tomorrow.
[2018-03-08] MEDS ORDERED: PROVENTIL INHALER 6.7 G (200 INHALATIONS) INH PRN (23:11)
[2018-03-08] MEDS ORDERED: Non-Formulary Item 1 EACH (Insulin Glargine,Hum.Rec.Anlog [Basaglar Kwikpen U-100] 20 UNI SQ SCH (23:15)
[2018-03-09 04:10] LABS: #Basophils 0.1 thou/uL (0.0-0.2); #Eosinphils 0.1 thou/uL (0.0-0.7); #Lymphocytes 3.3 thou/uL (1.20-3.40); #Monocytes 0.7 thou/uL (0.11-0.59); #Neutrophils 8.3 thou/uL (1.40-6.50); %Basophils 0.5 % (0.0-1.0); %Lymphocytes 26.3 % (21.0-51.0); %Monocytes 5.5 % (0.0-10.0); %Neutrophils 66.7 % (42.0-75.0); Hemoglobin 14.6 g/dL (14.0-18.0); Mean Corpuscular HGB CONC 32.8 g/dL (32.0-36.0); Mean Corpuscular Hemoglobin 30.3 pg (27.0-31.0); Mean Corpuscular Volume 92.2 fL (78.0-98.0); Mean Platelet Volume 7.7 fL (7.4-10.4); Platelet Count 362 thou/uL (130-400); RBC Distribution Width 12.5 % (11.5-14.5); Red Blood Cell (RBC) Count 4.82 mill/uL (4.70-6.10); White Blood Cell (WBC) Count 12.4 thou/uL (4.8-10.8)
[2018-03-09 04:31] LABS: ALT (SGPT) 55 U/L (8-55); AST (SGOT) 50 U/L (5-34); Albumin 3.1 g/dL (3.5-5.0); Alkaline Phosphatase 88 U/L (40-150); Anion Gap 11 mmol/L (10-20); BUN (Urea Nitrogen) 19 mg/dL (8.4-25.7); Bilirubin, Total 0.3 mg/dL (0.2-1.2); Calc. Creatinine Clearance 102 mL/min (70-130); Calcium 8.9 mg/dL (7.8-10.44); Carbon Dioxide 28 mmol/L (22-29); Cardiac Risk 6.5 (Less than 4.5); Chloride 105 mmol/L (98-107); Cholesterol 188 mg/dl (< 200 Desired); Estimated GFR-MDRD 71; Globulin 4.2 g/dL (2.4-3.5); Glucose 139 mg/dL (70-105); HDL Cholesterol 29 mg/dL (>60 Neg Risk); LDL Cholesterol, Calculated 126 mg/dL; Potassium 3.6 mmol/L (3.5-5.1); Protein, Total 7.3 g/dL (6.0-8.3); Sodium 140 mmol/L (136-145); Triglycerides 163 mg/dL (Less than 150)
--- NOTE | 2018-03-09 06:02 | PDOC.FM ---
- Subjective Subjective: Patient reports that his left sided weakness has continued to improve. He is hungry and looking forward to breakfast. Denies headache, CP, SOB. Hearing in L ear is improving. - Objective MAR Reviewed: Yes Vital Signs & Weight: Vital Signs (12 hours) Temp Pulse Resp BP Pulse Ox 03/09/18 04:00 97.6 F 73 20 143/96 H 95 03/09/18 00:00 98.2 F 60 20 159/94 H 96 03/08/18 21:40 96 03/08/18 21:04 98.2 F 70 22 H 166/98 H 96 Weight Weight 112.899 kg Result Diagrams: 03/09/18 03:50 03/09/18 03:50 <Zuleyka Gamez - Last Filed: 03/09/18 07:51> - Objective Vital Signs & Weight: Vital Signs (12 hours) Temp Pulse Resp BP Pulse Ox 03/09/18 15:02 74 16 03/09/18 12:00 97.8 F 81 20 156/95 H 95 03/09/18 11:55 70 16 03/09/18 11:00 62 03/09/18 08:00 98.5 F 62 16 162/95 H 95 03/09/18 06:41 73 12 03/09/18 04:00 97.6 F 73 20 143/96 H 95 Weight Weight 112.899 kg I&O: 03/08/18 03/09/18 03/10/18 06:59 06:59 06:59 Intake Total 480 Balance 480 Result Diagrams: 03/09/18 03:50 03/09/18 03:50 <Gloria Armstrong - Last Filed: 03/09/18 15:42> Phys Exam - Physical Examination Constitutional: NAD HEENT: moist MMs Neck: no JVD, supple, full ROM diffuse wheezing Cardiovascular: RRR, no significant murmur Gastrointestinal: soft, non-tender, no distention, positive bowel sounds Musculoskeletal: no edema, pulses present b/l LE muscle strength 5/5. RUE 5/5, LUE 4/5. L facial droop. Psychiatric: normal affect Skin: no rash, normal turgor, cap refill <2 seconds <Zuleyka Gamez - Last Filed: 03/09/18 07:51> Dx/Plan (1) KLEVER (acute kidney injury) Code(s): N17.9 - ACUTE KIDNEY FAILURE, UNSPECIFIED Status: Acute (2) BPH (benign prostatic hyperplasia) Code(s): N40.0 - BENIGN PROSTATIC HYPERPLASIA WITHOUT LOWER URINRY TRACT SYMP Status: Acute (3) COPD (chronic obstructive pulmonary disease) Status: Acute (4) Otitis media Code(s): H66.90 - OTITIS MEDIA, UNSPECIFIED, UNSPECIFIED EAR Status: Acute (5) TIA (transient ischemic attack) Code(s): G45.9 - TRANSIENT CEREBRAL ISCHEMIC ATTACK, UNSPECIFIED Status: Acute - Plan Plan: 57 yo M with PMH of DM, HTN, COPD presents for likely TIA/CVA TIA vs ischemic stroke - pt's left sided weakness resolving - CT brain showed no acute bleed - MRI pending - Will consult neurology today - Passed bedside swallow - started on plavix, statin - TSH, A1c pending KLEVER, resolved - BUN: 16->19, CR: 1.89->1.26 - encourage PO hydration - Will follow CMP Acute otitis media - continue augementin - received one dose outpatient COPD - Duonebs q4h sylvia - prednisone 20 daily Transaminitis, improving - AST: 56, ALT: 64 - likely 2/2 to NAFLD HTN - Will continue home meds and monitor VS DM - Will continue home glargine 20U BID - mod SS - Hypoglycemic protocol in place BPH - continue home tamsulosin DISPO: pending stroke work up <Zuleyka Gamez - Last Filed: 03/09/18 07:51> (1) COPD (chronic obstructive pulmonary disease) Status: Acute (2) Otitis media Code(s): H66.90 - OTITIS MEDIA, UNSPECIFIED, UNSPECIFIED EAR Status: Acute (3) TIA (transient ischemic attack) Code(s): G45.9 - TRANSIENT CEREBRAL ISCHEMIC ATTACK, UNSPECIFIED Status: Acute (4) Diabetes mellitus type 2 in obese Code(s): E11.69 - TYPE 2 DIABETES MELLITUS WITH OTHER SPECIFIED COMPLICATION; E66.9 - OBESITY, UNSPECIFIED Status: Chronic (5) Hypertension Code(s): I10 - ESSENTIAL (PRIMARY) HYPERTENSION Status: Chronic (6) Leucocytosis Code(s): D72.829 - ELEVATED WHITE BLOOD CELL COUNT, UNSPECIFIED Status: Acute (7) Transaminitis Code(s): R74.0 - NONSPEC ELEV OF LEVELS OF TRANSAMNS & LACTIC ACID DEHYDRGNSE Status: Acute (8) KLEVER (acute kidney injury) Code(s): N17.9 - ACUTE KIDNEY FAILURE, UNSPECIFIED Status: Acute (9) BPH (benign prostatic hyperplasia) Code(s): N40.0 - BENIGN PROSTATIC HYPERPLASIA WITHOUT LOWER URINRY TRACT SYMP Status: Acute <Gloria Armstrong - Last Filed: 03/09/18 15:42> Attending Addendum - Attending Addendum Date/Time: 03/09/18 8422 I personally evaluated the patient and discussed the management with Dr. Gamez. I agree with the History, Examination, Assessment and Plan documented above with any addition or exceptions noted below. Patient still has facial droop. LUE 4/5 strength. MRI today. Passed bedside swallow. <Gloria Armstrong - Last Filed: 03/09/18 15:42>
[2018-03-09] MEDS: Mometasone 100 MCG HFA INHALER INH SCH ×2 (06:41→19:41)
[2018-03-09 08:07] LABS: Hemoglobin A1c 7.1 % (4.0-6.0)
--- NOTE | 2018-03-09 09:09 | CON ---
DATE OF CONSULTATION: 03/08/2018 NEUROLOGY CONSULTATION CONSULTING PHYSICIAN: [facility]. IMPRESSION: 1. Probable lacunar stroke syndrome. 2. Diabetes. 3. Hypertension. 4. ASPIRIN allergy. PLAN: 1. Plavix 75 mg per day. 2. Low dose statin. 3. Carotid ultrasound. 4. Echocardiogram. 5. MRI of the brain. HISTORY OF PRESENT ILLNESS: Mr. Avilez a 57-year-old gentleman with a known history of hypertension and diabetes. He presented with waxing and waning left-sided weakness. He has noted some slurred sp eech. He has never had anything like this before. Initial CT scan of the brain was unremarkable. Warner jesus is mildly hypertensive with diastolic pressure of 93. He initially did not seek medical care due t o the fact that the symptoms seemed to improve. Unfortunately, there was some worsening and came int o the ER for evaluation. He does not have a history of any heart disease. PAST MEDICAL HISTORY: Hypertension, diabetes. SOCIAL HISTORY: No tobacco or significant alcohol use. ALLERGIES: ASPIRIN, IODINE, LATEX, NONSTEROIDALS. FAMILY HISTORY: Noncontributory. REVIEW OF SYSTEMS: No complaint of headache, nausea, vomiting, vertigo, double vision, blurred visio n, chest pain, shortness of breath. PHYSICAL EXAMINATION: GENERAL: This is a well-nourished middle-aged man in no acute distress. VITAL SIGNS: Stable. He is afebrile. HEENT: Pupils equal and reactive. Conjunctivae clear. Oropharynx clear. NECK: Supple, no lymphadenopathy. EXTREMITIES: No cyanosis or edema. NEUROLOGIC: He is alert and oriented x3. Speech was fluent and clear. Cranial nerve exam showed a subtle left facial droop. 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 Rapid alternating movements there were equal. He can stand and walk independently. Sensat ion was intact to light touch. IMAGING DATA: EKG showed sinus rhythm. LABORATORY STUDIES: Unremarkable CBC and serum chemistry other than a glucose level of 202. SUMMARY: This is a middle-aged man with a waxing and waning, mild focal deficits on the left consist ent with a probable lacunar stroke syndrome and start him on Plavix and a statin and complete his wor kup.
[2018-03-09] MEDS: Amoxicillin/Potassium Clav 875 MG TAB PO SCH ×2 (10:59→22:02)
[2018-03-09] MEDS: Lisinopril 20 MG TAB PO SCH ×2 (10:59→22:01)
[2018-03-09] MEDS: cloNIDine 0.1 MG TAB PO SCH ×2 (10:59→22:01)
[2018-03-09] MEDS: predniSONE 20 MG TAB PO SCH ×2 (11:00→18:06)
[2018-03-09] MEDS: Amlodipine 10 MG TAB PO SCH (11:00)
[2018-03-09] MEDS: metFORMIN 500 MG TAB PO SCH ×2 (11:00→18:06)
[2018-03-09] MEDS: Clopidogrel Bisulfate 75 MG TAB PO SCH (11:00)
[2018-03-09] MEDS: Loratadine 10 MG TAB PO SCH (11:00)
[2018-03-09] MEDS: Insulin Glargine 20 UNITS in Pre-Filled Syringe 1 EACH SC SCH ×2 (11:01→22:02)
--- NOTE | 2018-03-09 11:15 | ULT ---
CAROTID DOPPLER ULTRASOUND: History: CVA Technique: Multiple longitudinal and transverse images of the carotid arteries obtained using a Multi hertz linear array transducer. Real-time, color flow, and spectral waveform doppler analysis was used to evaluate the carotid arteries. FINDINGS: Images demonstrate no evidence of intimal thickening. No evidence of calcified or noncalcified plaque s seen. No evidence of increased flow velocity seen. No evidence of common or internal carotid artery stenosis. Normal antegrade flow is seen in the left vertebral artery. Flow was not seen in the right vertebral artery. IMPRESSION: 1. Nonvisualization of the right vertebral artery. 2. Normal carotid and left vertebral ultrasound. POS: [facility]
--- NOTE | 2018-03-09 11:17 | MRI ---
NONCONTRAST MRI LORRAINE: History: Stroke. Left sided weakness. Technique: Multiplanar, multisequence noncontrast enhanced MRI images were obtained of the brain obta ined. FINDINGS: There is a 7 mm area of increased signal intensity on T2 weighted sequences with diffusion restrictio n seen on the right posterior limb of the internal capsule. This is compatible with a small area of a cute stroke. Some deep white matter ischemic changes also seen. Normal flow voids seen in the major intracranial vessels. IMPRESSION: Small area of right posterior limb internal capsule stroke. POS: [facility]
[2018-03-09] MEDS: HumaLOG 300 UNITS/3 ML VIAL SC PRN (18:13)
[2018-03-09] MEDS: Atorvastatin Calcium 40 MG TAB PO SCH (22:01)
[2018-03-09] MEDS: Tamsulosin HCl 0.4 MG CAP PO SCH (22:01)
--- NOTE | 2018-03-10 05:30 | PDOC.FM ---
- Subjective Subjective: Patient reports he is feeling good this morning. Had many family members visit him yesterday. Reports weakness is similar to yesterday. Discussed his stroke diagnosis and answered questions. - Objective MAR Reviewed: Yes Vital Signs & Weight: Vital Signs (12 hours) Temp Pulse Resp BP BP Pulse Ox 03/10/18 04:00 97.9 F 84 18 140/85 97 03/10/18 02:15 82 14 95 03/10/18 00:00 98.4 F 81 18 138/85 94 L 03/09/18 22:54 81 16 95 03/09/18 22:01 162/98 H 03/09/18 20:00 97.4 F L 78 19 162/98 H 94 L 03/09/18 19:38 77 16 94 L Weight Weight 112.899 kg I&O: 03/08/18 03/09/18 03/10/18 06:59 06:59 06:59 Intake Total 480 900 Balance 480 900 Result Diagrams: 03/09/18 03:50 03/09/18 03:50 <Zuleyka Gamez - Last Filed: 03/10/18 07:21> - Objective Vital Signs & Weight: Vital Signs (12 hours) Temp Pulse Resp BP BP Pulse Ox 03/10/18 15:59 98.1 F 88 20 171/100 H 94 L 03/10/18 14:40 98 16 98 03/10/18 11:50 97.9 F 70 20 157/85 H 93 L 03/10/18 11:26 78 16 98 03/10/18 08:28 149/90 H 03/10/18 08:27 149/90 H 03/10/18 08:26 77 149/90 H 03/10/18 08:00 97.7 F 77 20 149/60 H 93 L 03/10/18 07:17 80 16 95 Weight Weight 112.899 kg I&O: 03/09/18 03/10/18 03/11/18 06:59 06:59 06:59 Intake Total 480 1650 540 Balance 480 1650 540 Result Diagrams: 03/09/18 03:50 03/09/18 03:50 <Gloria Armstrong - Last Filed: 03/10/18 16:11> Phys Exam - Physical Examination Constitutional: NAD HEENT: moist MMs Neck: no nodes, no JVD, supple Respiratory: no wheezing, no rhonchi, clear to auscultation bilateral Cardiovascular: RRR, no significant murmur Gastrointestinal: soft, non-tender, no distention, positive bowel sounds Musculoskeletal: no edema, pulses present B/l LE 5/5 muscle strength. 5/5 RUE. 4/5 LUE. L facial droop. Psychiatric: normal affect Skin: normal turgor, cap refill <2 seconds <Zuleyka Gamez - Last Filed: 03/10/18 07:21> Dx/Plan (1) CVA (cerebral vascular accident) Code(s): I63.9 - CEREBRAL INFARCTION, UNSPECIFIED Status: Acute (2) KLEVER (acute kidney injury) Code(s): N17.9 - ACUTE KIDNEY FAILURE, UNSPECIFIED Status: Acute (3) BPH (benign prostatic hyperplasia) Code(s): N40.0 - BENIGN PROSTATIC HYPERPLASIA WITHOUT LOWER URINRY TRACT SYMP Status: Acute (4) COPD (chronic obstructive pulmonary disease) Status: Acute (5) Otitis media Code(s): H66.90 - OTITIS MEDIA, UNSPECIFIED, UNSPECIFIED EAR Status: Acute - Plan Plan: 57 yo M with PMH of DM, HTN, COPD presents with CVA. CVA - No hx of CAD, pt's left sided weakness resolving - CT brain negative - MRI R posterior limb internal capsule stroke - Neurology consulted, Dr. Vásquez, appreciate recommendations - echo pending - started on plavix, statin. Allergic to aspirin. Acute otitis media - continue augmentin (03/09) - received one dose outpatient - symptoms improving COPD - Duonebs q4h sylvia - prednisone 20 daily - wheezing has resolved KLEVER, resolved - BUN: 16->19, CR: 1.89->1.26 - encourage PO hydration - Will recheck BMP tomorrow Transaminitis, improving - AST: 56, ALT: 64 - likely 2/2 to NAFLD HTN - Will continue home meds - systolic 140s DM - Will continue home glargine 20U BID - mod SS - BG 144-206 over past 24hrs - A1c 7.1 - Hypoglycemic protocol in place BPH - continue home tamsulosin DISPO: pending stroke work up <Zuleyka Gamez - Last Filed: 03/10/18 07:21> (1) COPD (chronic obstructive pulmonary disease) Status: Acute (2) Otitis media Code(s): H66.90 - OTITIS MEDIA, UNSPECIFIED, UNSPECIFIED EAR Status: Acute (3) Diabetes mellitus type 2 in obese Code(s): E11.69 - TYPE 2 DIABETES MELLITUS WITH OTHER SPECIFIED COMPLICATION; E66.9 - OBESITY, UNSPECIFIED Status: Chronic (4) Hypertension Code(s): I10 - ESSENTIAL (PRIMARY) HYPERTENSION Status: Chronic (5) Leucocytosis Code(s): D72.829 - ELEVATED WHITE BLOOD CELL COUNT, UNSPECIFIED Status: Acute (6) Transaminitis Code(s): R74.0 - NONSPEC ELEV OF LEVELS OF TRANSAMNS & LACTIC ACID DEHYDRGNSE Status: Acute (7) KLEVER (acute kidney injury) Code(s): N17.9 - ACUTE KIDNEY FAILURE, UNSPECIFIED Status: Acute (8) BPH (benign prostatic hyperplasia) Code(s): N40.0 - BENIGN PROSTATIC HYPERPLASIA WITHOUT LOWER URINRY TRACT SYMP Status: Acute <Gloria Armstrong - Last Filed: 03/10/18 16:11> Attending Addendum - Attending Addendum Date/Time: 03/10/18 0610 I personally evaluated the patient and discussed the management with Dr. Gamez. I agree with the History, Examination, Assessment and Plan documented above with any addition or exceptions noted below. The patient's echo is pending. MRI confirmed CVA. Pt notes improvement in weakness and slurred speech. On plavix and statin. <Gloria Armstrong - Last Filed: 03/10/18 16:11>
[2018-03-10] MEDS: Mometasone 100 MCG HFA INHALER INH SCH ×2 (07:34→19:11)
[2018-03-10] MEDS: Amlodipine 10 MG TAB PO SCH (08:26)
[2018-03-10] MEDS: Amoxicillin/Potassium Clav 875 MG TAB PO SCH ×2 (08:26→20:38)
[2018-03-10] MEDS: metFORMIN 500 MG TAB PO SCH ×2 (08:26→17:46)
[2018-03-10] MEDS: Clopidogrel Bisulfate 75 MG TAB PO SCH (08:26)
[2018-03-10] MEDS: cloNIDine 0.1 MG TAB PO SCH ×2 (08:27→20:38)
[2018-03-10] MEDS: Insulin Glargine 20 UNITS in Pre-Filled Syringe 1 EACH SC SCH ×2 (08:27→21:38)
[2018-03-10] MEDS: Lisinopril 20 MG TAB PO SCH ×2 (08:28→20:39)
[2018-03-10] MEDS: Loratadine 10 MG TAB PO SCH (08:28)
[2018-03-10] MEDS: predniSONE 20 MG TAB PO SCH ×2 (08:28→17:46)
[2018-03-10] MEDS: HumaLOG 300 UNITS/3 ML VIAL SC PRN (17:59)
[2018-03-10] MEDS: Tamsulosin HCl 0.4 MG CAP PO SCH (20:39)
[2018-03-10] MEDS: Atorvastatin Calcium 40 MG TAB PO SCH (20:39)
--- NOTE | 2018-03-11 05:36 | PDOC.FM ---
- Subjective Subjective: Pt reports great improvement in strength. Denies SOB, CP. No questions or concerns. Feels ready to go home. - Objective MAR Reviewed: Yes Vital Signs & Weight: Vital Signs (12 hours) Temp Pulse Resp BP BP Pulse Ox 03/11/18 02:23 95 16 99 03/11/18 00:00 98.0 F 83 16 153/85 H 91 L 03/10/18 22:41 88 16 98 03/10/18 20:39 171/56 H 03/10/18 20:38 171/56 H 03/10/18 20:00 98.2 F 86 18 171/96 H 93 L 03/10/18 19:09 89 18 96 Weight Weight 112.899 kg I&O: 03/09/18 03/10/18 03/11/18 06:59 06:59 06:59 Intake Total 480 1650 780 Balance 480 1650 780 Result Diagrams: 03/09/18 03:50 03/11/18 05:44 Phys Exam - Physical Examination Constitutional: NAD Neck: supple end expiratory wheezing in bases Cardiovascular: RRR, no significant murmur Gastrointestinal: soft, non-tender, positive bowel sounds Musculoskeletal: no edema, pulses present Neurological: moves all 4 limbs Psychiatric: normal affect, A&O x 3 Dx/Plan (1) CVA (cerebral vascular accident) Code(s): I63.9 - CEREBRAL INFARCTION, UNSPECIFIED Status: Acute (2) KLEVER (acute kidney injury) Code(s): N17.9 - ACUTE KIDNEY FAILURE, UNSPECIFIED Status: Acute (3) BPH (benign prostatic hyperplasia) Code(s): N40.0 - BENIGN PROSTATIC HYPERPLASIA WITHOUT LOWER URINRY TRACT SYMP Status: Chronic (4) COPD (chronic obstructive pulmonary disease) Status: Chronic (5) Otitis media Code(s): H66.90 - OTITIS MEDIA, UNSPECIFIED, UNSPECIFIED EAR Status: Acute (6) Transaminitis Code(s): R74.0 - NONSPEC ELEV OF LEVELS OF TRANSAMNS & LACTIC ACID DEHYDRGNSE Status: Acute (7) Diabetes mellitus type 2 in obese Code(s): E11.69 - TYPE 2 DIABETES MELLITUS WITH OTHER SPECIFIED COMPLICATION; E66.9 - OBESITY, UNSPECIFIED Status: Chronic (8) Hypertension Code(s): I10 - ESSENTIAL (PRIMARY) HYPERTENSION Status: Chronic - Plan Plan: 57 yo male with pmh of DM, HTN, COPD presents with CVA. CVA - No hx of CAD, pt's left sided weakness resolving - CT brain negative - MRI R posterior limb internal capsule stroke consistent with acute CVA - Neurology consulted, Dr. Vásquez, appreciate recommendations - Echo: EF 60-65%, 1/3 diastolic dysfunction - Continue Plavix, statin. Allergic to aspirin. Acute otitis media - Continue augmentin (03/09) - Symptoms improving COPD - Duonebs q4h sylvia - Prednisone 20 daily KLEVER, resolved - Encourage PO hydration - Will check CMP this AM Transaminitis, improving - likely 2/2 to NAFLD - Will check CMP this AM HTN - Continue home Amlodipine 10, lisinopril 20 BI - Elevated BPs overnight, will start HCTZ 12.5mg BID, pt reports this has worked well in the past for him - BP goal <130/80 DM - Continue home glargine 20U BID, metformin - Mod SSI - A1c 7.1 - Accuchecks ACHS - Hypoglycemic protocol in place BPH - Continue home tamsulosin Code Status: FULL DVT ppx: SCDs
[2018-03-11 06:14] LABS: ALT (SGPT) 50 U/L (8-55); AST (SGOT) 35 U/L (5-34); Albumin 3.1 g/dL (3.5-5.0); Alkaline Phosphatase 64 U/L (40-150); Anion Gap 12 mmol/L (10-20); BUN (Urea Nitrogen) 23 mg/dL (8.4-25.7); Bilirubin, Total 0.4 mg/dL (0.2-1.2); Calc. Creatinine Clearance 89 mL/min (70-130); Calcium 8.8 mg/dL (7.8-10.44); Carbon Dioxide 27 mmol/L (22-29); Chloride 102 mmol/L (98-107); Estimated GFR-MDRD 60; Globulin 3.8 g/dL (2.4-3.5); Glucose 155 mg/dL (70-105); Potassium 3.9 mmol/L (3.5-5.1); Protein, Total 6.9 g/dL (6.0-8.3); Sodium 137 mmol/L (136-145)
[2018-03-11] MEDS: Mometasone 100 MCG HFA INHALER INH SCH (06:39)
[2018-03-11 07:49] VITALS: TEMP 97.8
[2018-03-11] MEDS: Lisinopril 20 MG TAB PO SCH (08:08)
[2018-03-11] MEDS: predniSONE 20 MG TAB PO SCH (08:08)
[2018-03-11] MEDS: metFORMIN 500 MG TAB PO SCH (08:09)
[2018-03-11] MEDS: Clopidogrel Bisulfate 75 MG TAB PO SCH (08:10)
[2018-03-11] MEDS: Amoxicillin/Potassium Clav 875 MG TAB PO SCH (08:10)
[2018-03-11] MEDS: Insulin Glargine 20 UNITS in Pre-Filled Syringe 1 EACH SC SCH (08:10)
[2018-03-11] MEDS: cloNIDine 0.1 MG TAB PO SCH (08:10)
[2018-03-11] MEDS: Amlodipine 10 MG TAB PO SCH (08:10)
[2018-03-11] MEDS: Loratadine 10 MG TAB PO SCH (08:10)
[2018-03-11 11:14] VITALS: BP 179/116
[2018-03-11] MEDS ORDERED: Hydrochlorothiazide 25 MG TAB PO SCH ×2 (11:30→21:00)
--- NOTE | 2018-03-11 11:50 | PRG ---
DATE OF SERVICE: 03/11/2018 SUBJECTIVE: Mr. Avilez had a small lacunar infarct about 3 days ago and is currently on medical mauro gement with good result. Most of his hemiparesis has much improved. He no longer has any slurring o f speech. His blood pressure is still a little elevated and we are adjusting his blood pressure medi cations. I would recommend a goal of about less than 130/80 for his blood pressure. He is already o n atorvastatin 40 mg and after a week or two, we should probably increase this to 80 mg daily. Given that he is allergic to ASPIRIN and that it causes anaphylaxis, he is on Plavix and will probably be so indefinitely. We explained to Mr. Avilez the importance of followup and very important control of his risk factors, particularly hypertension. He seems to understand and is ready for discharge like ly later this afternoon.
--- NOTE | 2018-03-12 02:52 | DIS-2 ---
DATE OF ADMISSION: 03/08/2018 DATE OF DISCHARGE: 03/11/2018 RESIDENT: Wanda Dietrich, PGY-1. ADMITTING ATTENDING: Gloria Armstrong M.D. DISCHARGE ATTENDING: Piero Chowdhury MD. CONSULTATIONS: Neurology. PROCEDURES: 1. Brain CT, no CT evidence of acute intracranial process. 2. Chest x-ray, no radiographic evidence of acute cardiopulmonary process. 3. Carotid Doppler study, nonvisualization of the right cerebral artery. Normal carotid and left ve rtebral ultrasound. 4. Brain MRI, small area of right posterior limb of internal capsule stroke. 5. Echocardiogram: EF 60%-65%, grade 1/3 diastolic dysfunction, mild mitral and tricuspid regurgita tion. PRIMARY DIAGNOSIS: Acute cerebrovascular accident. SECONDARY DIAGNOSES: 1. Acute otitis media. 2. Chronic obstructive pulmonary disease. 3. Acute kidney injury, resolved. 4. Transaminitis, improving. 5. Hypertension. 6. Diabetes. DISCHARGE MEDICATIONS: 1. Albuterol sulfate 2 puffs q.4 hours p.r.n. 2. Amlodipine 10 mg daily. 3. Augmentin 875/125 mg b.i.d. for 5 days (new). 4. Atorvastatin 40 mg at bedtime. 5. QVAR one inhalation q.12 hours. 6. Zyrtec 10 mg daily. 7. Clonidine 0.1 mg b.i.d. 8. Plavix 75 mg daily. 9. Hydrochlorothiazide 12.5 mg b.i.d.(new). 10. Glargine 20 units q.a.m. and at bedtime. 11. DuoNeb q.4 hours p.r.n. 12. Lisinopril 20 mg b.i.d. 13. Metformin 1000 mg b.i.d. 14. Prednisone 20 mg b.i.d. for 5 days (new). 15. Tamsulosin 0.4 mg at bedtime. DISCONTINUED MEDICATIONS: None. HISTORY OF PRESENT ILLNESS AND HOSPITAL COURSE: Mr. Avilez is a 57-year-old male who came in with sh ortness of breath and left-sided weakness and slurred speech as well as ataxia. The patient came int o the ER on 03/07/2018 and was treated for COPD exacerbation and otitis media. He returned to the ED with the left-sided weakness that was resolving. CT of the brain was negative. MRI showed a right posterior limb of internal capsule stroke. Nephrology was consulted. Echo was performed showing gra de 1/3 diastolic dysfunction. Carotid Dopplers were negative. He was started on Plavix and statin. Patient was not started on aspirin due to anaphylaxis allergy. Medical management also included con trolling patient's elevated blood pressure. He was already on the max dose of amlodipine 10 and bola nopril 20 b.i.d., so he was started on hydrochlorothiazide 12.5 b.i.d. Patient reported that this wo rked well for him in the past. Goal is to keep patient's blood pressure less than 130/80. We continued treatment of his acute otitis media with Augmentin, symptoms improved. COPD exacerbatio n was treated with DuoNebs and prednisone daily. He was noted to have an acute kidney injury, which resolved with IV fluids. Transaminitis, it is lik arletet secondary to NAFLD, this improved throughout hospitalization. For his type 2 diabetes, we continued home glargine 20 units b.i.d. and metformin. His hemoglobin A1 c was 7.1%. Tamsulosin was continued for patient's BPH. DISPOSITION: Stable. DISCHARGE INSTRUCTIONS: 1. Location: Home. 2. Diet: No restrictions. 3. Activity: As tolerated. 4. Follow up with PCP, Dr. Gilmore within 3-[address] Vásquez, neurologist within 2-3 weeks.
== END 2018-03-11 12:19 | disposition home or self-care (01) | DRG 65 ==
LOC: ERS 17:12 → 2SE 19:10
PROVIDERS: ADMIT Family Medicine; ATTEND Family Medicine
DX: I63.9 Cerebral infarction, unspecified (principal); N17.9 Acute kidney failure, unspecified; G81.94 Hemiplegia, unspecified affecting left nondominant side; I10 Essential (primary) hypertension; H66.90 Otitis media, unspecified, unspecified ear; J44.9 Chronic obstructive pulmonary disease, unspecified; E11.9 Type 2 diabetes mellitus without complications; R74.0 Nonspecific elevation of levels of transaminase and lactic acid dehydrogenase [LDH]; R47.81 Slurred speech; N40.0 Benign prostatic hyperplasia without lower urinary tract symptoms; E66.9 Obesity, unspecified; Z88.6 Allergy status to analgesic agent; Z79.02 Long term (current) use of antithrombotics/antiplatelets
CPT/HCPCS: 36415; 36416; 70450; 70551; 71045; 71046; 80053; 80061; 81003; 81015; 82553; 83036; 83880; 84443; 84484; 85025; 85610; 85730; 93005; 93306; 93880; 94640; 94664; G8978-GP-CI; G8979-GP-CI; G8980-GP-CI; G8987-GO-CI; G8988-GO-CI; G8989-GO-CI; G9162-GN-CI; G9163-GN-CI; J7506; J7620; Q0162

== ENCOUNTER 2018-05-16 03:30 | Observation (INO) | payer MEDICARE ==
[2018-05-16] MEDS ORDERED: methylPREDNISolone Sod Succ/PF 125 MG/2 ML VIAL ONE (03:47)
[2018-05-16] MEDS ORDERED: Magnesium 2 GM/50 ML BAG (IN WATER) ONE (03:47)
[2018-05-16] MEDS ORDERED: Azithromycin 250 MG TAB ONE (03:58)
[2018-05-16 04:00] LABS: #Basophils 0.1 thou/uL (0.0-0.2); #Eosinphils 1.1 thou/uL (0.0-0.7); #Lymphocytes 3.6 thou/uL (1.20-3.40); #Monocytes 0.8 thou/uL (0.11-0.59); #Neutrophils 4.9 thou/uL (1.40-6.50); %Basophils 0.6 % (0.0-1.0); %Eosinophils 10.3 % (0.0-10.0); %Lymphocytes 34.7 % (21.0-51.0); %Monocytes 7.4 % (0.0-10.0); Hemoglobin 14.6 g/dL (14.0-18.0); Mean Corpuscular HGB CONC 35.3 g/dL (32.0-36.0); Mean Corpuscular Hemoglobin 31.4 pg (27.0-31.0); Mean Platelet Volume 7.2 fL (7.4-10.4); Platelet Count 366 thou/uL (130-400); RBC Distribution Width 11.9 % (11.5-14.5); Red Blood Cell (RBC) Count 4.65 mill/uL (4.70-6.10); White Blood Cell (WBC) Count 10.5 thou/uL (4.8-10.8)
[2018-05-16 04:23] LABS: ALT (SGPT) 46 U/L (8-55); AST (SGOT) 48 U/L (5-34); Albumin 3.5 g/dL (3.5-5.0); Alkaline Phosphatase 93 U/L (40-150); Anion Gap 15 mmol/L (10-20); BUN (Urea Nitrogen) 17 mg/dL (8.4-25.7); Bilirubin, Total 0.3 mg/dL (0.2-1.2); Calc. Creatinine Clearance 0 mL/min (70-130); Calcium 9.5 mg/dL (7.8-10.44); Carbon Dioxide 25 mmol/L (22-29); Chloride 101 mmol/L (98-107); Estimated GFR-MDRD 59; Globulin 4.6 g/dL (2.4-3.5); Glucose 129 mg/dL (70-105); Potassium 3.6 mmol/L (3.5-5.1); Protein, Total 8.1 g/dL (6.0-8.3); Sodium 137 mmol/L (136-145)
[2018-05-16] MEDS ORDERED: cefTRIAXone\\ROCEPHIN 1 GM VIAL ONE (05:52)
--- NOTE | 2018-05-16 08:12 | RAD ---
PORTABLE AP CHEST: Date: 05/16/18 HISTORY: Productive cough. COMPARISON: 03/08/18. FINDINGS: There is partial exclusion of the most inferior aspect left lateral costophrenic angle. Minimal atele ctasis is present at the left lung base. Lungs are otherwise clear. Cardiac silhouette and pulmonary vasculature are within normal limits. Vascular calcifications again seen in thoracic aorta. There has been no other interval change from the prior exam. IMPRESSION: No acute cardiopulmonary process. POS: NORA
[2018-05-16 13:19] VITALS: BMI 32.1
[2018-05-16] MEDS: Albuterol Sulfate 1.25 MG/3 ML NEB NEB SCH ×3 (15:06→22:35)
[2018-05-16] MEDS: Sodium Chloride 0.9% 1,000 ML IV SCH (15:16)
[2018-05-16] MEDS ORDERED: Mag-Al 1200 mg/1200 mg/30 ML UDCUP PO PRN (19:10)
[2018-05-16] MEDS: guaiFENesin/Codeine Phosphate 200 mg/20 mg 10 ml UD Cup PO SCH ×2 (19:25→23:06)
[2018-05-16] MEDS ORDERED: Dextrose 5% in Water 1,000 ML IV PRN (19:38)
[2018-05-16] MEDS ORDERED: Dextrose 50% Abboject 50 ML SYRINGE IVP PRN (19:38)
[2018-05-16] MEDS ORDERED: Insulin Regular 300 UNITS/3 ML VIAL SC PRN (19:38)
--- NOTE | 2018-05-16 20:24 | HP ---
CHIEF COMPLAINT: Cough, shortness of breath, and several episodes of syncope while coughing. HISTORY OF PRESENT ILLNESS: The patient is a 57-year-old male, who is presenting with two weeks of progressively worse cough with 4 witnessed syncopal episodes in the last few days while coughing so hard. He felt feverish and he had may be small chills few days ago. He denies any productive cough. This is just dry hacking cough. He is short of breath. His primary doctor is Dr. Gilmore from [facility], and surrogate decision maker is his daughter, Carla Galindo. PAST MEDICAL HISTORY: Is positive for: 1. Diabetes mellitus type 2. 2. Hypertension. 3. COPD. 4. BPH. 5. Pneumonia. 6. CVA with left-sided hemiparesis. PAST SURGICAL HISTORY: Sinus surgery x2. FAMILY HISTORY: Mother had breast cancer, at the age of 61 and father had CHF and when he was 68. SOCIAL HISTORY: He is a former smoker. He quit more than a year ago. He uses alcohol occasionally and uses marijuana maybe once a month. MEDICATIONS: 1. Lisinopril 20 mg twice a day. 2. Flomax 0.4 mg once a day. 3. Albuterol nebulizers usually twice a day. 4. Amlodipine 10 mg once a day. 5. Metformin 1000 mg twice a day. 6. Humalog sliding scale. 7. Clonidine 0.1 mg twice a day. 8. Cetirizine 10 mg once a day. 9. Lantus 20 mg twice a day. REVIEW OF SYSTEMS: All 14 systems were reviewed and they were positive for symptoms mentioned in the HPI. PHYSICAL EXAMINATION: VITAL SIGNS: His blood pressure is 156/95, pulse is 85, respiratory rate is 20, pulse oximetry is 99% on room air. HEENT: Head is atraumatic and normocephalic. Eyes are PERRLA. Sclerae are nonicteric. Oral mucosa is moist. NECK: Supple. No lymphadenopathy. Thyroid is not palpable. LUNGS: Breath sounds somewhat diminished at both bases with few crackles and wheezes in every segment of both lungs. HEART: S1, S2 normal. No S3, no S4. ABDOMEN: Soft, nontender, nondistended. EXTREMITIES: No clubbing, cyanosis, or edema. He has good pulses on both dorsalis pedis and tibialis posterior arteries similar bilaterally. NEUROLOGICAL: He is alert and oriented x4. There is no any motor or sensory deficit, may be minimal weakness in the left upper and lower extremity compared to the right side, but that is questionable. SKIN: No rash or erythema. LABORATORY DATA: Labs showed white count of 10.5, hemoglobin 14.6, hematocrit 41.3, platelet count is 366,000. Normal electrolytes. Creatinine 1.49, glucose 129, AST 48, ALT 46, globulin 4.6, troponin I less than 0.010. BNP 42.3. Chest x-ray reviewed personally by me did not show any acute intrathoracic abnormalities. IMPRESSION: 1. Exacerbation of chronic obstructive pulmonary disease. 2. Syncope related to the cough. 3. Diabetes mellitus type 2. 4. Hypertension. 5. Benign prostatic hyperplasia. 6. History of pneumonia. 7. History of cerebrovascular accident with left-sided paresis. PLAN: Admission for observation. Condition is fair. Activity bedrest with bathroom privileges. IV, we will give him normal saline at 75 mL/h since his creatinine is slightly elevated. I do not know whether this is chronic or a new finding, although during his visit in March, his creatinine was also at similar range 1.45. We will continue his DuoNeb he was started in the emergency room every 4 hours. We will continue his Solu-Medrol 20 mg IV push every 8 hours. We will do Accu-Cheks a.c. and bedtime and sliding scale. We will start him on his insulin Lantus 20 units twice a day, and we will do DVT prophylaxis with SCDs and Lovenox and PUD prophylaxis with H2 kenji. Job ID: [id number]
[2018-05-16] MEDS ORDERED: Insulin Glargine 20 UNITS in Pre-Filled Syringe 1 EACH SC SCH (21:00)
[2018-05-16] MEDS: Famotidine 20 MG TAB PO SCH (21:22)
[2018-05-16] MEDS ORDERED: Albuterol Sulfate 1.25 MG/3 ML NEB ONE (22:24)
[2018-05-16] MEDS ORDERED: cloNIDine 0.1 MG TAB PO SCH (23:00)
[2018-05-16] MEDS ORDERED: Lisinopril 20 MG TAB PO SCH (23:00)
[2018-05-16] MEDS ORDERED: Tamsulosin HCl 0.4 MG CAP PO SCH (23:30)
[2018-05-17] MEDS: Albuterol Sulfate 1.25 MG/3 ML NEB NEB SCH ×7 (02:38→22:14)
[2018-05-17 04:30] LABS: Band 4 % (5-11); Hemoglobin 13.2 g/dL (14.0-18.0); Lymphocytes 20 % (21-51); MDiff Complete? YES; Mean Corpuscular HGB CONC 34.3 g/dL (32.0-36.0); Mean Corpuscular Hemoglobin 30.7 pg (27.0-31.0); Mean Corpuscular Volume 89.5 fL (78.0-98.0); Mean Platelet Volume 7.5 fL (7.4-10.4); Monocytes 11 % (0-10); Neutrophil 65 % (42-75); Platelet Count 368 thou/uL (130-400); Red Blood Cell (RBC) Count 4.31 mill/uL (4.70-6.10); White Blood Cell (WBC) Count 12.7 thou/uL (4.8-10.8)
[2018-05-17 04:36] LABS: ALT (SGPT) 39 U/L (8-55); AST (SGOT) 31 U/L (5-34); Albumin 3.3 g/dL (3.5-5.0); Alkaline Phosphatase 69 U/L (40-150); Anion Gap 11 mmol/L (10-20); BUN (Urea Nitrogen) 19 mg/dL (8.4-25.7); Bilirubin, Total 0.3 mg/dL (0.2-1.2); Calc. Creatinine Clearance 114 mL/min (70-130); Calcium 8.7 mg/dL (7.8-10.44); Carbon Dioxide 24 mmol/L (22-29); Chloride 105 mmol/L (98-107); Estimated GFR-MDRD 82; Glucose 228 mg/dL (70-105); Protein, Total 7.3 g/dL (6.0-8.3); Sodium 136 mmol/L (136-145)
[2018-05-17] MEDS: Insulin Regular 300 UNITS/3 ML VIAL SC PRN ×3 (05:53→16:20)
[2018-05-17] MEDS: guaiFENesin/Codeine Phosphate 200 mg/20 mg 10 ml UD Cup PO SCH ×4 (05:55→23:13)
[2018-05-17] MEDS: Sodium Chloride 0.9% 1,000 ML IV SCH ×3 (05:57→18:56)
[2018-05-17] MEDS: cefTRIAXone\\ROCEPHIN 1 GM in Sodium Chloride 0.9% 100 ML IVPB SCH (08:09)
[2018-05-17] MEDS: Clopidogrel Bisulfate 75 MG TAB PO SCH (08:10)
[2018-05-17] MEDS: Lisinopril 20 MG TAB PO SCH ×2 (08:10→20:45)
[2018-05-17] MEDS: cloNIDine 0.1 MG TAB PO SCH ×2 (08:10→20:45)
[2018-05-17] MEDS: Amlodipine 10 MG TAB PO SCH (08:10)
[2018-05-17] MEDS: Azithromycin 250 MG TAB PO SCH (08:11)
[2018-05-17] MEDS: Famotidine 20 MG TAB PO SCH ×2 (08:11→20:45)
--- NOTE | 2018-05-17 13:00 | PRG ---
DATE OF SERVICE: 05/17/2018 SUBJECTIVE: The patient is seen and examined at bedside. He is doing significantly better. He still coughs a lot, but it has improved since yesterday. His shortness of breath has improved too. OBJECTIVE: VITAL SIGNS: Blood pressure is 140/85, pulse is 82, respiratory rate is 16, and O2 saturation is 95% on room air. His temperature is 98.2 and that is the maximal temperature for this hospitalization. HEENT: His head is atraumatic and normocephalic. Eyes, PERRLA. Sclerae nonicteric. Oral mucosa is moist. NECK: Supple. LUNGS: Bilateral rales and crackles, mostly in the left lower part of the back. HEART: S1 and S2 normal. There is a systolic murmur 2/6 at the left sternal border, mostly audible. ABDOMEN: Soft and nontender. Bowel sounds are present. No organomegaly. EXTREMITIES: No clubbing, cyanosis, or edema. NEUROLOGIC: He is alert and oriented x4. There is no any sensory or motor deficits. Cranial nerves are intact. LABORATORY DATA: Showed white count of 12.7, hemoglobin 13.2, hematocrit 38.6, and platelet count 368,000. Normal chemistry except for glucose, which is running between 224 and 279. Albumin 3.3. Globulin 4.0. Microbiology, none. IMPRESSION: 1. Exacerbation of chronic obstructive pulmonary disease, improved. The patient had no syncopal episodes during this hospitalization. 2. Multiple syncope. No more syncopes during this hospitalization. 3. Diabetes mellitus, somewhat worse, controlled since he is on steroids now. 4. Hypertension. 5. Benign prostatic hyperplasia. 6. History of pneumonia. 7. History of cerebrovascular accident with left-sided paresis. PLAN: To change his Solu-Medrol to prednisone. Continue IV ceftriaxone and Zithromax. Increase ambulation. Make some adjustments to his insulin glargine since his glycemia is above 200. I will start him on 30 units of long-acting insulin glargine along with the sliding scale. We will continue his lisinopril, amlodipine, and clopidogrel, and he should be able to go home tomorrow after observation is completed. He will continue nebulizers. Job ID: [id number]
[2018-05-17] MEDS ORDERED: Insulin Glargine 30 UNITS in Pre-Filled Syringe 1 EACH SC SCH (21:00)
[2018-05-17] MEDS ORDERED: Tamsulosin HCl 0.4 MG CAP PO SCH (21:00)
[2018-05-18] MEDS: Albuterol Sulfate 1.25 MG/3 ML NEB NEB SCH ×2 (02:32→09:27)
[2018-05-18] MEDS ORDERED: Ondansetron ODT 4 MG TAB PO PRN (04:06)
[2018-05-18 06:02] LABS: ALT (SGPT) 42 U/L (8-55); AST (SGOT) 39 U/L (5-34); Albumin 3.4 g/dL (3.5-5.0); Alkaline Phosphatase 67 U/L (40-150); Anion Gap 12 mmol/L (10-20); BUN (Urea Nitrogen) 17 mg/dL (8.4-25.7); Bilirubin, Total 0.3 mg/dL (0.2-1.2); Calc. Creatinine Clearance 117 mL/min (70-130); Calcium 8.8 mg/dL (7.8-10.44); Carbon Dioxide 27 mmol/L (22-29); Chloride 105 mmol/L (98-107); Estimated GFR-MDRD 85; Glucose 174 mg/dL (70-105); Potassium 3.6 mmol/L (3.5-5.1); Protein, Total 7.4 g/dL (6.0-8.3); Sodium 140 mmol/L (136-145)
[2018-05-18] MEDS: guaiFENesin/Codeine Phosphate 200 mg/20 mg 10 ml UD Cup PO SCH (06:10)
[2018-05-18] MEDS: Insulin Regular 300 UNITS/3 ML VIAL SC PRN (06:11)
[2018-05-18 06:42] LABS: Band 1 % (5-11); Eosinophils 2 % (0-10); Hemoglobin 13.3 g/dL (14.0-18.0); Lymphocytes 37 % (21-51); MDiff Complete? YES; Mean Corpuscular HGB CONC 33.7 g/dL (32.0-36.0); Mean Corpuscular Hemoglobin 30.5 pg (27.0-31.0); Mean Corpuscular Volume 90.5 fL (78.0-98.0); Mean Platelet Volume 7.5 fL (7.4-10.4); Monocytes 3 % (0-10); Neutrophil 56 % (42-75); Platelet Count 372 thou/uL (130-400); RBC Distribution Width 11.9 % (11.5-14.5); Reactive Lymphocytes 1 % (0-10); Red Blood Cell (RBC) Count 4.36 mill/uL (4.70-6.10); White Blood Cell (WBC) Count 11.8 thou/uL (4.8-10.8)
[2018-05-18] MEDS: Sodium Chloride 0.9% 1,000 ML IV SCH (07:27)
[2018-05-18] MEDS ORDERED: Non-Formulary Item 1 EACH (Insulin Glargine,Hum.Rec.Anlog [Basaglar Kwikpen U-100] 20 UNI SQ SCH (07:30)
[2018-05-18] MEDS: cefTRIAXone\\ROCEPHIN 1 GM in Sodium Chloride 0.9% 100 ML IVPB SCH (07:44)
[2018-05-18] MEDS: Amlodipine 10 MG TAB PO SCH (07:47)
[2018-05-18] MEDS: Famotidine 20 MG TAB PO SCH (07:47)
[2018-05-18] MEDS: Azithromycin 250 MG TAB PO SCH (07:48)
[2018-05-18] MEDS: Lisinopril 20 MG TAB PO SCH (07:48)
[2018-05-18] MEDS: cloNIDine 0.1 MG TAB PO SCH (07:48)
[2018-05-18] MEDS: Clopidogrel Bisulfate 75 MG TAB PO SCH (07:48)
[2018-05-18 07:54] VITALS: BP 155/104; TEMP 97.4
[2018-05-18] MEDS ORDERED: predniSONE 20 MG TAB PO SCH (08:00)
[2018-05-18] MEDS ORDERED: Insulin Glargine 20 UNITS in Pre-Filled Syringe 1 EACH SC SCH (09:00)
--- NOTE | 2018-05-18 12:50 | EKG ---
Test Reason : Blood Pressure : / mmHG Vent. Rate : 083 BPM Atrial Rate : 083 BPM P-R Int : 164 ms QRS Dur : 086 ms QT Int : 392 ms P-R-T Axes : 013 -35 -18 degrees QTc Int : 460 ms Normal sinus rhythm Left axis deviation Pulmonary disease pattern Nonspecific ST abnormality Abnormal ECG Confirmed by YOSSI JOHNSON ([id number]), photograph editor CONNIE DO ([id number]) on 05/18/2018 12:50:16 PM Referred By: Confirmed By:YOSSI JOHNSON
--- NOTE | 2018-05-18 18:31 | DIS ---
DATE OF ADMISSION: 05/16/2018 DATE OF DISCHARGE: 05/18/2018 CONDITION AT THE TIME OF DISCHARGE: Stable and improved. DISCHARGE DISPOSITION: Home. DISCHARGE DIAGNOSES: 1. Acute chronic obstructive pulmonary disease exacerbation. 2. Syncopal episode due to unrelenting cough. 3. Diabetes mellitus. 4. Hypertension. 5. BPH. 6. History of cerebrovascular accident with left-sided paresis. DISCHARGE MEDICATIONS: 1. Medrol Dosepak. 2. Omnicef 300 mg p.o. b.i.d. for 5 days. 3. Clonidine 0.1 mg p.o. b.i.d. 4. Metformin 1000 p.o. b.i.d. 5. Lisinopril 20 mg p.o. b.i.d. 6. Tamsulosin 0.4 mg at bedtime. 7. Insulin glargine 20 units at home dosages. 8. DuoNeb p.r.n. 9. Hydrochlorothiazide 12.5 mg p.o. b.i.d. 10. Plavix 75 mg daily. 11. Lipitor 40 mg daily. 12. Amlodipine 10 mg daily. 13. Albuterol inhaler. PRIMARY CARE PHYSICIAN: Dr. Yara Gilmore in [place]. CONSULTATIONS IN HOSPITAL: None. PROCEDURES DONE IN THE HOSPITAL: Chest x-ray in the emergency room, which is negative for any acute cardiopulmonary abnormality. HISTORY OF PRESENTING ILLNESS: Mr. Avilez is a pleasant 57-year-old male with known history of diabetes, hypertension, CVA, COPD, who presented to the emergency room with severe cough, shortness of breath, and several episodes of syncope while coughing. He was found to be in acute exacerbation of COPD and was started on Solu-Medrol, nebulizers, and empiric antibiotics. Please see admission history and physical for further details. HOSPITAL COURSE: The patient was monitored over several nights. He eventually had improvement in his symptoms. Guaifenesin with codeine given for his cough and this was prescribed for discharge as well. He was empirically treated with azithromycin and Rocephin in the emergency room, which was changed to Omnicef upon discharge. Solu-Medrol was changed to Medrol Dosepak on discharge. He was seen and examined prior to discharge and is hemodynamically stable and feeling much better and is eager to go home. PHYSICAL EXAMINATION: VITAL SIGNS: This morning, temperature 97.4, pulse of 69, respirations 20, saturating 94% on room air, blood pressure 155/104. GENERAL: No acute distress. Awake, alert, and oriented x3. CHEST: Clear to auscultation except for few scattered expiratory wheezes, which are very mild. No crackles. CARDIAC: Rate and rhythm are regular without any murmurs, rubs, or gallops. LABORATORY DATA: Blood sugar this morning 159. DISCHARGE PLAN: Discharge plan was discussed with the patient who verbalized understanding. Job ID: [id number]
[2018-05-18] MEDS ORDERED: Tamsulosin HCl 0.4 MG CAP PO SCH (21:00)
== END 2018-05-18 09:34 | disposition home or self-care (01) ==
LOC: ERS 03:30 → ERHOLD 05:45 → 2SW 13:13
PROVIDERS: ADMIT Hospitalist; ATTEND Hospitalist
DX: J44.1 Chronic obstructive pulmonary disease with (acute) exacerbation (principal); R55 Syncope and collapse; E11.9 Type 2 diabetes mellitus without complications; I10 Essential (primary) hypertension; N40.0 Benign prostatic hyperplasia without lower urinary tract symptoms; I69.354 Hemiplegia and hemiparesis following cerebral infarction affecting left non-dominant side; Z87.891 Personal history of nicotine dependence; Z79.4 Long term (current) use of insulin; Z79.899 Other long term (current) drug therapy; Z88.6 Allergy status to analgesic agent; Z88.8 Allergy status to other drugs, medicaments and biological substances; Z91.040 Latex allergy status; Z91.041 Radiographic dye allergy status
CPT/HCPCS: 71045; 80053 ×3; 82962 ×3; 83880; 84484; 85007 ×2; 85025; 85027 ×2; 93005; 94640 ×4; 96361 ×4; 96365; 96366; 96367; 96375; 96376 ×3; 99285; G0378 ×2; 36415; 36416; J0696; J1815; J2920; J2930; J7050; J7506; J7620; Q0162

== ENCOUNTER 2018-08-16 13:34 | Emergency (ER) | payer MEDICARE ==
[2018-08-16 15:15] LABS: #Basophils 0.1 thou/uL (0.0-0.2); #Eosinphils 0.9 thou/uL (0.0-0.7); #Lymphocytes 4.2 thou/uL (1.20-3.40); #Monocytes 0.6 thou/uL (0.11-0.59); #Neutrophils 7.7 thou/uL (1.40-6.50); %Basophils 0.8 % (0.0-1.0); %Eosinophils 6.4 % (0.0-10.0); %Lymphocytes 30.9 % (21.0-51.0); %Monocytes 4.7 % (0.0-10.0); %Neutrophils 57.1 % (42.0-75.0); Hemoglobin 15.9 g/dL (14.0-18.0); Mean Corpuscular Hemoglobin 29.8 pg (27.0-31.0); Mean Corpuscular Volume 90.3 fL (78.0-98.0); Mean Platelet Volume 7.4 fL (7.4-10.4); Platelet Count 340 thou/uL (130-400); RBC Distribution Width 12.3 % (11.5-14.5); Red Blood Cell (RBC) Count 5.32 mill/uL (4.70-6.10); White Blood Cell (WBC) Count 13.5 thou/uL (4.8-10.8)
[2018-08-16 15:32] LABS: ALT (SGPT) 68 U/L (8-55); AST (SGOT) 50 U/L (5-34); Albumin 3.8 g/dL (3.5-5.0); Alkaline Phosphatase 97 U/L (40-150); Anion Gap 17 mmol/L (10-20); BUN (Urea Nitrogen) 21 mg/dL (8.4-25.7); Bilirubin, Total 0.2 mg/dL (0.2-1.2); CK (CPK) 654 U/L (30-200); Calc. Creatinine Clearance 0 mL/min (70-130); Calcium 9.9 mg/dL (7.8-10.44); Carbon Dioxide 25 mmol/L (22-29); Chloride 102 mmol/L (98-107); Estimated GFR-MDRD 58; Globulin 4.6 g/dL (2.4-3.5); Glucose 70 mg/dL (70-105); Potassium 3.8 mmol/L (3.5-5.1); Protein, Total 8.4 g/dL (6.0-8.3); Sodium 140 mmol/L (136-145)
--- NOTE | 2018-08-16 15:37 | RAD ---
CHEST 2 VIEWS: HISTORY: Cough. COMPARISON: Radiograph 05/16/2018. FINDINGS: The lungs are clear. No pneumothorax or effusion. Cardiac silhouette and mediastinal contours are w ithin normal limits. IMPRESSION: No acute intrathoracic abnormality. POS: CET
[2018-08-16] MEDS ORDERED: predniSONE 20 MG TAB ONE (15:40)
[2018-08-16] MEDS ORDERED: HYDROcodone/Acetaminophen 10/325 mg Tablet ONE (15:40)
--- NOTE | 2018-08-16 15:46 | CT ---
CT BRAIN WITHOUT CONTRAST: Date: 08/16/18 HISTORY: Mastoiditis. FINDINGS: Comparison made with exam of 03/08/18. No evidence of infarct, hemorrhage, midline shift, or abnormal extra-axial fluid collections are seen . An old lacunar infarct is seen in the posterior limb of the right internal capsule. The ventricular size is appropriate and the basilar cisterns are patent. The bony calvarium is intact. There is muco kevin disease in the paranasal sinuses. There is fluid in the left mastoid air cells. IMPRESSION: 1. No CT evidence of acute intracranial process. 2. Paranasal sinus disease and left mastoiditis. POS: OFF
== END 2018-08-16 17:33 | disposition home or self-care (01) ==
LOC: ERS 13:34
DX: J44.1 Chronic obstructive pulmonary disease with (acute) exacerbation (principal); H66.92 Otitis media, unspecified, left ear; H70.002 Acute mastoiditis without complications, left ear; E11.9 Type 2 diabetes mellitus without complications; I10 Essential (primary) hypertension; Z87.891 Personal history of nicotine dependence; Z79.899 Other long term (current) drug therapy
CPT/HCPCS: 70450; 71046; 80053; 82550; 82553; 84484; 85025; 93005; 94640; 94760; J7620

== ENCOUNTER 2019-04-27 08:41 | Emergency (ER) | payer MEDICARE ==
[2019-04-27] MEDS ORDERED: Ondansetron PF 4 MG/2 ML Vial ONE (08:55)
[2019-04-27 09:17] LABS: #Basophils 0.1 thou/uL (0.0-0.2); #Eosinphils 0.7 thou/uL (0.0-0.7); #Lymphocytes 3.1 thou/uL (1.20-3.40); #Monocytes 0.6 thou/uL (0.11-0.59); #Neutrophils 7.2 thou/uL (1.40-6.50); %Basophils 0.8 % (0.0-1.0); %Eosinophils 5.6 % (0.0-10.0); %Lymphocytes 26.5 % (21.0-51.0); %Monocytes 5.4 % (0.0-10.0); %Neutrophils 61.7 % (42.0-75.0); Mean Corpuscular HGB CONC 33.3 g/dL (32.0-36.0); Mean Corpuscular Hemoglobin 30.1 pg (27.0-31.0); Mean Corpuscular Volume 90.6 fL (78.0-98.0); Mean Platelet Volume 7.4 fL (7.4-10.4); Platelet Count 399 thou/uL (130-400); RBC Distribution Width 12.5 % (11.5-14.5); Red Blood Cell (RBC) Count 4.99 mill/uL (4.70-6.10); White Blood Cell (WBC) Count 11.7 thou/uL (4.8-10.8)
--- NOTE | 2019-04-27 09:28 | CT ---
Exam: Head CT without contrast HISTORY: Headache COMPARISON: 08/16/2018 FINDINGS: Hemorrhage: No intraparenchymal hemorrhage or extra-axial hematoma. Brain parenchyma: Cortical marinelli-white matter differentiation is preserved. No mass effect or midline shift. Basilar cisterns are patent. Ventricular system: Ventricles and sulci are patent and symmetric. Calvarium: Intact. Sinuses and mastoid air cells: Extensive opacification the visualized paranasal sinuses. Adequate mas toid air cell aeration. IMPRESSION: 1. No acute intracranial process 2. Pansinus opacification.
--- NOTE | 2019-04-27 09:31 | RAD ---
RADIOGRAPH CHEST 1 VIEW: DATE: 04/27/2019 HISTORY: 58-year-old female with cough FINDINGS: The thoracic aorta is tortuous and ectatic. There is no evidence of airspace density, cardiomegaly, p ulmonary edema, or pneumothorax. The lateral costophrenic angles are not effaced. IMPRESSION: 1) No acute pulmonary findings. 2) ectasia of thoracic aorta.
[2019-04-27 09:45] LABS: ALT (SGPT) 60 U/L (8-55); AST (SGOT) 54 U/L (5-34); Albumin 3.4 g/dL (3.5-5.0); Alkaline Phosphatase 73 U/L (40-110); Anion Gap 11 mmol/L (10-20); BUN (Urea Nitrogen) 15 mg/dL (8.4-25.7); Bilirubin, Total 0.3 mg/dL (0.2-1.2); Calc. Creatinine Clearance 0 mL/min (70-130); Carbon Dioxide 29 mmol/L (22-29); Chloride 101 mmol/L (98-107); Estimated GFR-MDRD 76; Globulin 3.8 g/dL (2.4-3.5); Glucose 141 mg/dL (70-105); Potassium 3.9 mmol/L (3.5-5.1); Protein, Total 7.2 g/dL (6.0-8.3); Sodium 137 mmol/L (136-145)
== END 2019-04-27 13:16 | disposition home or self-care (01) ==
LOC: ERS 08:41
DX: J44.1 Chronic obstructive pulmonary disease with (acute) exacerbation (principal); E11.9 Type 2 diabetes mellitus without complications; I10 Essential (primary) hypertension; Z86.73 Personal history of transient ischemic attack (TIA), and cerebral infarction without residual deficits; Z79.899 Other long term (current) drug therapy; Z79.84 Long term (current) use of oral hypoglycemic drugs
CPT/HCPCS: 70450; 71045; 80053; 83880; 84484; 85025; 93005; 96361; 96374; J2405; J7620

== ENCOUNTER 2019-06-02 14:20 | Emergency (ER) | payer MEDICARE ==
--- NOTE | 2019-06-02 16:11 | RAD ---
EXAM: Chest PA and lateral: HISTORY: Cough COMPARISON: 08/16/2018 FINDINGS: Lung rossi are clear. Vascular markings are normal. Heart and mediastinum appear unremarkable. Osseous structures are unremarkable. IMPRESSION: Unremarkable chest
== END 2019-06-02 17:32 | disposition home or self-care (01) ==
LOC: ERS 14:20
DX: J11.1 Influenza due to unidentified influenza virus with other respiratory manifestations (principal); J44.9 Chronic obstructive pulmonary disease, unspecified; E11.9 Type 2 diabetes mellitus without complications; I10 Essential (primary) hypertension; Z86.73 Personal history of transient ischemic attack (TIA), and cerebral infarction without residual deficits; Z79.84 Long term (current) use of oral hypoglycemic drugs; Z79.899 Other long term (current) drug therapy
CPT/HCPCS: 71046; 87804; 94640; J7620

== ENCOUNTER 2019-08-14 07:24 | Emergency (ER) | payer MEDICARE ==
--- NOTE | 2019-08-14 08:09 | CT ---
CT OF THE ABDOMEN AND PELVIS WITHOUT IV CONTRAST INDICATION: Low back pain COMPARISON: None FINDINGS: The lack of IV contrast limits evaluation of the solid organs of the abdomen and pelvis. ABDOMEN: Lung bases: There is subsegmental volume loss within both lower lobes, right greater than left Liver: No focal lesion. Gallbladder: Normal appearing. Pancreas: Normal. Adrenal glands: Normal. Spleen: Normal. Kidneys and ureters: Normal. No hydronephrosis. Vasculature: There are mild vascular calcifications seen involving the visualized vasculature. Lymph nodes:No lymphadenopathy. Free fluid in abdomen:No free fluid is evident. PELVIS: Small and large bowel: Mild colonic diverticulosis and mild amount retained stool within the colon Appendix:Normal Bladder: Normal. Rectal and perirectal soft tissues:Normal. Reproductive structures: Normal. Free fluid in pelvis: No free fluid is evident. Lymphadenopathy pelvis: No lymphadenopathy is evident. Osseous structures: No acute osseous abnormality. No destructive osteolytic or osteoblastic lesion i s identified. There is scattered degenerative and osteoarthritic changes. Soft tissues:Normal. IMPRESSION: 1. Nonspecific mild subsegmental volume loss within both lower lobes, right greater than left. 2. Mild amount retained stool within the colon. Mild colonic diverticulosis without evidence of activ e diverticulitis 3. No renal or ureteral calculus demonstrated.
[2019-08-14 08:25] LABS: #Basophils 0.1 thou/uL (0.0-0.2); #Eosinphils 0.7 thou/uL (0.0-0.7); #Lymphocytes 3.2 thou/uL (1.20-3.40); #Monocytes 1.1 thou/uL (0.11-0.59); #Neutrophils 9.1 thou/uL (1.40-6.50); %Basophils 1.1 % (0.0-1.0); %Eosinophils 4.7 % (0.0-10.0); %Lymphocytes 22.2 % (21.0-51.0); %Monocytes 7.8 % (0.0-10.0); %Neutrophils 64.2 % (42.0-75.0); Hemoglobin 14.4 g/dL (14.0-18.0); Mean Corpuscular HGB CONC 34.2 g/dL (32.0-36.0); Mean Corpuscular Hemoglobin 31.3 pg (27.0-31.0); Mean Corpuscular Volume 91.6 fL (78.0-98.0); Mean Platelet Volume 7.8 fL (7.4-10.4); Platelet Count 320 thou/uL (130-400); RBC Distribution Width 12.3 % (11.5-14.5); Red Blood Cell (RBC) Count 4.61 mill/uL (4.70-6.10); White Blood Cell (WBC) Count 14.2 thou/uL (4.8-10.8)
[2019-08-14] MEDS ORDERED: Morphine 4 MG/ML VIAL ONE (08:35)
[2019-08-14 08:48] LABS: ALT (SGPT) 52 U/L (8-55); AST (SGOT) 54 U/L (5-34); Alkaline Phosphatase 88 U/L (40-110); Anion Gap 14 mmol/L (10-20); BUN (Urea Nitrogen) 21 mg/dL (8.4-25.7); Bilirubin, Total 0.2 mg/dL (0.2-1.2); Calc. Creatinine Clearance 0 mL/min (70-130); Calcium 8.8 mg/dL (7.8-10.44); Carbon Dioxide 22 mmol/L (22-29); Chloride 107 mmol/L (98-107); Estimated GFR-MDRD 72; Globulin 3.5 g/dL (2.4-3.5); Glucose 109 mg/dL (70-105); Potassium 3.9 mmol/L (3.5-5.1); Protein, Total 6.5 g/dL (6.0-8.3); Sodium 139 mmol/L (136-145)
[2019-08-14 09:02] LABS: Bilirubin Negative (Negative); Blood, Urine 1+ (Negative); Clarity Clear (Clear); Glucose, Urine (Dipstick) 30 mg/dL (Negative); Leukocyte Negative Leu/uL (Negative); Nitrite Negative (Negative); Protein, Urine (Dipstick) 300 mg/dL (Neg-Trace); RBC/HPF 0-3 HPF (0-3); Squamous Epithelial None Seen HPF (0-3); Urobilinogen Normal mg/dL (Less than 2); WBC/HPF 0-3 HPF (0-3)
[2019-08-14 09:21] LABS: Bacteria/HPF None Seen HPF (None Seen)
== END 2019-08-14 11:13 | disposition home or self-care (01) ==
LOC: ERS 07:24
DX: M54.5 Low back pain (principal); E11.9 Type 2 diabetes mellitus without complications; I10 Essential (primary) hypertension; J44.9 Chronic obstructive pulmonary disease, unspecified; Z86.73 Personal history of transient ischemic attack (TIA), and cerebral infarction without residual deficits; Z79.84 Long term (current) use of oral hypoglycemic drugs; Z79.51 Long term (current) use of inhaled steroids; Z79.899 Other long term (current) drug therapy
CPT/HCPCS: 36415; 74176; 80053; 81003; 81015; 85025; 96374; J2270

== ENCOUNTER 2019-12-31 15:07 | Observation (INO) | payer MEDICARE ==
[~2019-12-31 15:07] MED LIST: Iopamidol-370 76% 500 ML 1 ML ONE
[2019-12-31 16:00] LABS: #Lymphocytes 2.8 thou/uL (1.20-3.40); #Monocytes 0.8 thou/uL (0.11-0.59); #Neutrophils 13.3 thou/uL (1.40-6.50); %Basophils 0.2 % (0.0-1.0); %Eosinophils 0.1 % (0.0-10.0); %Lymphocytes 16.3 % (21.0-51.0); %Monocytes 4.9 % (0.0-10.0); %Neutrophils 78.4 % (42.0-75.0); Hemoglobin 13.6 g/dL (14.0-18.0); Mean Corpuscular HGB CONC 33.3 g/dL (32.0-36.0); Mean Corpuscular Hemoglobin 30.1 pg (27.0-31.0); Mean Corpuscular Volume 90.2 fL (78.0-98.0); Mean Platelet Volume 8.1 fL (7.4-10.4); Platelet Count 332 thou/uL (130-400); RBC Distribution Width 12.5 % (11.5-14.5); Red Blood Cell (RBC) Count 4.54 mill/uL (4.70-6.10); White Blood Cell (WBC) Count 16.9 thou/uL (4.8-10.8)
--- NOTE | 2019-12-31 16:02 | RAD ---
PORTABLE CHEST: 12/31/19 HISTORY: Chest pain. Lungs appear clear. No infiltrate or vascular congestion. Heart and mediastinum unremarkable. No change from prior exam dated 04/27/19. IMPRESSION: No acute findings. POS: AH
[2019-12-31] MEDS ORDERED: Morphine 4 MG/ML VIAL ONE (16:18)
--- NOTE | 2019-12-31 16:18 | CT ---
CT BRAIN WITHOUT CONTRAST: HISTORY:Vertigo COMPARISON:04/27/2019 FINDINGS: There are few foci of decreased attenuation in the periventricular white matter, consistent with mild chronic small vessel ischemic disease. No evidence of acute infarct, hemorrhage, midline shift or abnormal extra-axial fluid collections is seen. The ventricular size is appropriate and the basilar cisterns are patent. The bony calvarium is intact. There is mucosal disease in the paranasal sinuses. IMPRESSION: No CT evidence of acute intracranial process.
[2019-12-31] MEDS ORDERED: Ondansetron PF 4 MG/2 ML Vial ONE (16:19)
[2019-12-31 16:27] LABS: ALT (SGPT) 36 U/L (8-55); AST (SGOT) 32 U/L (5-34); Alkaline Phosphatase 106 U/L (40-110); Anion Gap 13 mmol/L (10-20); BUN (Urea Nitrogen) 16 mg/dL (8.4-25.7); Bilirubin, Total 0.2 mg/dL (0.2-1.2); CK (CPK) 802 U/L (30-200); Calc. Creatinine Clearance 0 mL/min (70-130); Calcium 8.5 mg/dL (7.8-10.44); Carbon Dioxide 25 mmol/L (22-29); Chloride 103 mmol/L (98-107); Estimated GFR-MDRD 56; Globulin 3.2 g/dL (2.4-3.5); Glucose 249 mg/dL (70-105); Lipase 110 U/L (8-78); Potassium 3.7 mmol/L (3.5-5.1); Protein, Total 6.2 g/dL (6.0-8.3); Sodium 137 mmol/L (136-145)
[2019-12-31] MEDS ORDERED: diphenhydrAMINE 50 MG/ML VIAL ONE (16:44)
[2019-12-31] MEDS ORDERED: Famotidine/PF 20 mg/2ml Vial ONE (16:44)
[2019-12-31] MEDS ORDERED: methylPREDNISolone Sod Succ 40 MG VIAL ONE (16:44)
[2019-12-31 17:25] LABS: Bacteria/HPF None Seen HPF (None Seen); Bilirubin Negative (Negative); Blood, Urine 2+ (Negative); Clarity Clear (Clear); Glucose, Urine (Dipstick) 500 mg/dL (Negative); Ketone, Urine Negative (Negative); Leukocyte Negative Leu/uL (Negative); Nitrite Negative (Negative); Protein, Urine (Dipstick) 600 mg/dL (Neg-Trace); RBC/HPF 0-3 HPF (0-3); Specific Gravity, Urine 1.019 (1.002-1.036); Squamous Epithelial 0-3 HPF (0-3); Urobilinogen Normal mg/dL (Less than 2); WBC/HPF 0-3 HPF (0-3); pH, Urine 6.5 (5.0-9.0)
[2019-12-31 17:40] LABS: Medtox Reader # READER 4; THC/Cannabinoid Screen Detected (NotDetected)
[2019-12-31 17:41] LABS: Amphetamine Not Detected (NotDetected); Barbiturates Screen Not Detected (NotDetected); Benzodiazepine Screen Not Detected (NotDetected); Cocaine Metabolite Screen Not Detected (NotDetected); Medtox Control Line Valid? VALID (VALID); Methadone Not Detected (NotDetected); Methamphetamine Not Detected (NotDetected); Opiate Screen Detected (NotDetected); Oxycodone Screen Not Detected (NotDetected); Phencyclidine (PCP) Not Detected (NotDetected); Tricyclic Screen Not Detected (NotDetected)
--- NOTE | 2019-12-31 18:00 | CT ---
CT ANGIOGRAM THORAX AND ABDOMEN WITH IV CONTRAST AND 3-D RECONSTRUCTIONS CLINICAL INDICATION: Chest pain for 2 weeks with associated dizziness. COMPARISON: None FINDINGS: Pulmonary arteries: Suboptimal opacification of pulmonary arteries as this study was tailored for lisset luation of the thoracic aorta. Pulmonary emboli are unable to be evaluated on this exam. Aorta: Vascular calcifications are seen in the aortic arch. The most proximal descending thoracic aor ta is mildly dilated measuring 4 cm in diameter. The ascending thoracic aorta is ectatic measuring 4.2 cm. Remainder of the thoracic aorta is normal in caliber without evidence of an aortic dissection . Vascular calcifications are seen in the abdominal aorta, but the abdominal aorta is normal in caliber without evidence of an aortic dissection. Only the most proximal common iliac arteries are im aged and are patent. The celiac and superior mesenteric arteries as well as inferior mesenteric artery are patent. There are single patent bilateral renal arteries present with mild atherosclerotic irregularity involving the origin of the right renal artery. Lungs: There is a mild bronchiectasis are seen at the medial aspect of the right lower lobe with jeanne cent minimal parenchymal density suggested filling defects within the bronchi in this region which could be related to mucous plugging. Scattered areas of atelectasis and/or scarring are seen in the r ight middle lobe and lingula. Mild wedge-shaped parenchymal density is seen in the left lung base probably attributable to atelectasis. Mediastinum: Vascular calcifications are seen in the coronary arteries. No enlarged lymph nodes are i dentified. Thyroid gland: No definite thyroid nodule is appreciated. Osseous structures: Mild degenerative changes are seen in the thoracic and lumbar spine. Chest wall: There is a circumscribed fat density lesion involving the posterior upper chest which has soft tissue appearing density within this fat density lesion. Liposarcoma cannot be excluded. This lesion measures 3.8 cm x 2.4 cm in greatest axial dimensions. Further evaluation with MRI with and wi thout IV contrast is recommended. Upper abdomen: The liver, spleen, pancreas, and bilateral adrenal glands demonstrate a normal CT appe arance for arterial phase of imaging. Subcentimeter too small to characterize hypodense lesions are seen in each kidney. Colonic diverticula are seen involving the descending colon. IMPRESSION: 1. Fat density mass in the adipose layer right upper posterior chest with irregular areas of soft tis jorge alberto density present in the mass. Liposarcoma cannot be excluded. MRI is recommended with and without IV contrast. 2. Vascular calcifications in the thoracic and abdominal aorta without evidence of an aortic dissecti on. 3. 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 4. Minimal bronchiectasis posteromedial right lower lobe with adjacent minimal parenchymal changes. T his could be related to chronic lung changes, but there does appear to be filling defects within the dilated bronchi in this region which may represent mucous plugging.
[2019-12-31] MEDS ORDERED: Nitroglycerin 0.4 MG TAB (25 Tab Bottle) PO PRN (18:35)
[2019-12-31] MEDS ORDERED: HumaLOG 300 UNITS/3 ML VIAL SC PRN ×2 (18:39)
[2019-12-31] MEDS ORDERED: Dextrose 50% Abboject 50 ML SYRINGE SLOW IVP PRN (18:39)
[2019-12-31] MEDS ORDERED: Dextrose 5% in Water 1,000 ML IV PRN (18:39)
[2019-12-31] MEDS ORDERED: Senokot S 8.6-50 MG TAB PO PRN (18:40)
[2019-12-31] MEDS ORDERED: Ondansetron ODT 4 MG TAB PO PRN (18:40)
[2019-12-31] MEDS ORDERED: Calcium Carbonate 500 MG ChewTAB PO PRN (18:40)
[2019-12-31] MEDS ORDERED: Acetaminophen 325 MG TAB PO PRN (18:40)
[2019-12-31 19:26] LABS: Troponin I 0.029 ng/mL (< 0.028)
--- NOTE | 2019-12-31 19:50 | HP ---
PRIMARY CARE PHYSICIAN: León Nelson. CHIEF COMPLAINT: Chest pain and dizziness. HISTORY OF PRESENT ILLNESS: The patient is a 59-year-old male with a past medical history significant for hypertension, hyperlipidemia, diabetes type 2, CVA with no motor deficits, and COPD, who presents to the ER for the above complaint. The patient reports chest pain for the past 2 weeks, located on his left chest wall, described as a fluttering pressure. He reports that the pressure is constant and the fluttering is intermittent and exacerbated after he takes his medications in the morning and it is relieved by nothing. He reports some associated nausea and vomiting x1. He also reports feeling lightheaded. He denies that the room is spinning, but says he feels like he is going to pass out. He has no history of PE or DVT. He does use marijuana and is a former smoker. He has a history of COPD as well. He also reports having intermittent headaches, sometimes on the left side of his head and sometimes on the right side of his head, feels like aching pain. He has no history of migraine headaches. He denies any recent trauma or falls. He is on Plavix. He denies any focal motor deficits or changes in vision. He denies any recent fever or chills. He denies any swelling to his lower extremities. He denies any shortness of breath or cough. He denies any abdominal pain or diarrhea. Denies any urinary symptoms. In the ER, the patient had an EKG, sinus rhythm 83 with some PACs. Chest x-ray negative for any acute process. Initial troponin 0.022. CK was 802. CT of the brain was negative for any acute intracranial process. CT dissection was negative for any aortic dissection. He did show a fat density mass in the adipose layer in the right upper posterior chest cannot exclude liposarcoma. Recommend MRI without IV contrast and followup. WBCs were 16.9. Creatinine was 1.55. Urine drug screen did show marijuana and opioids and his UA was positive for 600 protein and 500 glucose with 2+ blood. The patient was given Solu-Medrol, Pepcid, Benadryl, 1 L normal saline, and admitted up to the floor. The patient did see his PCP yesterday and was diagnosed with vertigo and was given meclizine. PAST MEDICAL HISTORY: 1. Hypertension. 2. Hyperlipidemia. 3. Diabetes type 2. 4. COPD. 5. CVA approximately 3 years ago with no residual deficits. 6. BPH. PAST SURGICAL HISTORY: Sinus surgery x2. SOCIAL HISTORY: The patient lives with his family at home. Former smoker, quit greater than 2 years ago. Smokes marijuana daily. No alcohol intake. FAMILY HISTORY: Dad is contributory for cardiac disease and diabetes. Grandmother contributory for diabetes. ALLERGIES: 1. ASPIRIN. 2. NSAIDS. 3. IODINE. 4. LATEX. 5. RUBBER. HOME MEDICATIONS: 1. Lisinopril 20 mg one p.o. b.i.d. 2. Amlodipine 10 mg one p.o. daily. 3. Metformin 1000 mg p.o. b.i.d. 4. Clonidine 0.1 mg p.o. b.i.d. 5. Atorvastatin 40 mg one p.o. daily. 6. Clopidogrel 75 mg one p.o. daily. 7. Flomax 0.4 mg one p.o. daily. 8. Albuterol 90 mcg inhaler one inhalation q.4 hours p.r.n. wheezing, shortness of breath. 9. Cetirizine 10 mg one p.o. daily. 10. Fluticasone propionate nasal 50 mcg actuation one spray intranasal once a day. 11. Meclizine 12.5 mg one p.o. daily. REVIEW OF SYSTEMS: All review of systems are negative unless otherwise stated in the HPI. PHYSICAL EXAMINATION: VITAL SIGNS: Temperature 98, blood pressure of 155/97, heart rate 87, respirations 18, 97% on room air, 7/10 pain. CONSTITUTIONAL: The patient is alert and oriented to person, place, and time. Resting comfortably in bed. Appears nontoxic. HEAD: Atraumatic and normocephalic. EYES: PERRLA. Extraocular muscles intact. ENT: Bilateral EACs are clear. TMs are intact bilaterally. Nares patent bilaterally. Oropharynx is clear. Uvula midline. Moist mucous membranes. No oral lesions. NECK: Full range of motion. No cervical spinous tenderness. No cervical adenopathy. No JVD. RESPIRATORY/CHEST: Respirations are even and unlabored. There is end- expiratory wheezing to the left upper and bilateral lower lobes. No rhonchi. No rales. CARDIOVASCULAR: S1 and S2 appreciated. Regular rate and rhythm. No murmurs, rubs, or gallops. ABDOMEN: Soft, nontender, nondistended. Active bowel sounds. No guarding. No rigidity. No rebound. Negative Rovsing. Negative Downs and no abdominal bruit auscultated. BACK: Full range of motion. No central spinous tenderness. No CVA tenderness. EXTREMITIES: Upper extremities; full range of motion, normal strength, sensation intact, palpable radial pulses. Lower extremities; full range of motion, normal strength, sensation intact, palpable pedal pulses, no swelling. NEUROLOGIC: The patient is alert, oriented to person, place, and time. Moves all extremities well. No focal motor deficits. NIH of 0 and a modified HINTS exam was unremarkable. No nystagmus. Test of Skew was unremarkable. PSYCHIATRIC: Normal affect. A and O x3. LABS AND DIAGNOSTICS: Brain CT negative for any acute intracranial process. Chest x-ray negative for any acute cardiopulmonary process. CT dissection was positive for a fat density mass to the right upper posterior chest, liposarcoma cannot be excluded. Recommend MRI without IV contrast as a followup and negative for any aortic dissection. 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 Sodium 137, potassium 3.7, chloride 103, carbon dioxide 25, BUN 16, creatinine 1.55, glucose 249, bilirubin 0.2, AST 32, ALT 36, alkaline phosphatase 106. Troponin 0.022. Creatine kinase 802. Lipase 110. WBC 16.9, hemoglobin 13.6, hematocrit 40.9, platelets 332. UA showed protein, glucose, and a little bit of blood. Tox screen positive for opioids and cannabis. ASSESSMENT AND PLAN: 1. Chest pain. Unstable angina. We will admit the patient to telemetry floor for observation status. Expected length of stay less than 2 midnights. The patient presents for 2 weeks of chest pain with associated heart palpitations and dizziness. HEART score of 5, Wells score of 0. EKG sinus rhythm with PACs. Chest x-ray negative for any acute process. Initial troponin 0.022. The patient is on Plavix. We will continue to trend troponins. We will check a BNP, TSH, and magnesium level. We will continue Plavix. We will order new cardiac stress test with echo. We will check a fasting lipid profile. 2. Near syncope. The patient has significant cardiovascular risks, hypertension , diabetes type 2, and hyperlipidemia. We will order echo and carotid Doppler. NIH was 0 on exam and modified HINTS was unremarkable. We will order MRI of brain as well. We will continue Plavix. 3. Acute kidney injury. The patient presented with creatinine of 1.55, baseline appears to be 1.12. He is on WILLEM inhibitors and statins. UA showed 600 of protein, 500 glucose, and 2+ blood. We will add renal ultrasound. We will hold WILLEM inhibitor for now. 4. Leukocytosis, WBC 16.9, UA and CXR unremarkable. No signs of infection. Will recheck in am. 5. Fat density mass right upper posterior chest. Incidental finding on CT dissection protocol. Showed a fat density mass in the adipose layer in the right upper posterior chest cannot exclude liposarcoma. Recommend MRI without IV contrast and followup. 6. Diabetes type 2. The patient reports taking metformin daily. We will hold metformin for now. Place him on moderate sliding scale with a.c. and nightly Accu-Cheks. He presented with a blood sugar of 249. Most recent hemoglobin A1c was done in July 2019 and was 6.9. 7. Chronic obstructive pulmonary disease. The patient denies any respiratory symptoms and was no acute respiratory distress. Chest x-ray is negative. He does have slight end-expiratory wheezing. He was given some Solu-Medrol. We will continue to monitor. We will add DuoNeb p.r.n. 8. Hypertension. We will hold the patient's lisinopril due to the acute kidney injury. We will restart Norvasc, clonidine when reconciled by nursing. 9. Hyperlipidemia. The patient reports taking atorvastatin. We will restart when reconciled by nursing. We will check a fasting lipid profile. 10. Benign prostatic hypertrophy. We will restart the patient's Flomax. He denies any urinary symptoms. 11. Heparin for deep venous thrombosis prophylaxis. Pepcid for gastrointestinal prophylaxis. The patient is a full code. His contact is his sister, Maddy Floyd, #[phone]. Discussed case with Dr. Bearden. Job ID: [id number] [id number]
[2019-12-31 20:40] VITALS: BMI 30.7
[2019-12-31] MEDS: Famotidine 20 MG TAB PO SCH (21:13)
[2019-12-31] MEDS: Heparin 5,000 UNITS/ML VIAL SC SCH (21:13)
[2019-12-31 22:15] LABS: Troponin I 0.018 ng/mL (< 0.028)
[2019-12-31] MEDS: Sodium Chloride 0.9% 1,000 ML IV SCH (23:48)
--- NOTE | 2020-01-01 | ULT ---
BILATERAL CAROTID DUPLEX ULTRASOUND: HISTORY: Near-syncope TECHNIQUE: Grayscale, color-flow and spectral Doppler ultrasound imaging of the extracranial carotid artery syst ems was performed bilaterally. FINDINGS: Minimal atherosclerotic plaque is seen within the carotid arteries bilaterally. There is no hemodynamically significant stenosis in the bilateral internal carotid arteries according to the peak systolic velocities and the ICA/CCA ratios. The peak systolic velocity in the right ICA measures 38.5 cm/s. The peak systolic velocity in the left ICA measures 44.7 cm/s. The right IC A/CCA ratio is 0.49, and the left ICA/CCA ratio is 0.51. Vertebral arteries: Antegrade flow is demonstrated in the vertebral arteries bilaterally. IMPRESSION: No hemodynamically significant stenosis in the bilateral internal carotid arteries.
--- NOTE | 2020-01-01 00:06 | ULT ---
Bilateral renal ultrasound CLINICAL INDICATION: Acute renal insufficiency. COMPARISON: None FINDINGS: Right kidney: There is a small hypoechoic cystic structure superior pole measuring 1.2 cm as well as a small 0.9 cm hypoechoic structure seen in the midportion right kidney which are difficult to characterize given very small size but statistically likely represent tiny cysts. No hydronephrosis o r renal calculus is seen on the right.The right kidney measures 12.1 cm x 4.7 cm. Left kidney: Partially obscured due to shadowing from adjacent bowel gas. No hydronephrosis or renal mass is appreciated. No obvious renal calculus is seen.The left kidney measures 10 cm x 6.1 cm. Urinary bladder: Within normal limits for degree of distention. IMPRESSION: 1. No evidence of hydronephrosis. 2. Tiny hypoechoic structures right kidney likely related to very small cysts.
[2020-01-01 04:20] LABS: #Lymphocytes 1.9 thou/uL (1.20-3.40); #Monocytes 0.5 thou/uL (0.11-0.59); #Neutrophils 13.5 thou/uL (1.40-6.50); %Eosinophils 0.1 % (0.0-10.0); %Neutrophils 84.9 % (42.0-75.0); Hemoglobin 13.2 g/dL (14.0-18.0); Mean Corpuscular Hemoglobin 29.4 pg (27.0-31.0); Mean Corpuscular Volume 91.9 fL (78.0-98.0); Mean Platelet Volume 8.2 fL (7.4-10.4); Platelet Count 317 thou/uL (130-400); RBC Distribution Width 12.5 % (11.5-14.5); White Blood Cell (WBC) Count 15.9 thou/uL (4.8-10.8)
[2020-01-01 04:56] LABS: ALT (SGPT) 31 U/L (8-55); AST (SGOT) 26 U/L (5-34); Albumin 2.7 g/dL (3.5-5.0); Alkaline Phosphatase 80 U/L (40-110); Anion Gap 11 mmol/L (10-20); BUN (Urea Nitrogen) 21 mg/dL (8.4-25.7); Bilirubin, Total Less than 0.2 mg/dL (0.2-1.2); Calc. Creatinine Clearance 79 mL/min (70-130); Calcium 8.2 mg/dL (7.8-10.44); Carbon Dioxide 26 mmol/L (22-29); Cardiac Risk 4.4 (Less than 4.5); Chloride 105 mmol/L (98-107); Cholesterol 167 mg/dl (< 200 Desired); Estimated GFR-MDRD 57; Globulin 3.5 g/dL (2.4-3.5); Glucose 235 mg/dL (70-105); HDL Cholesterol 38 mg/dL (>60 Neg Risk); LDL Cholesterol, Calculated 114 mg/dL; Lipase 34 U/L (8-78); Protein, Total 6.2 g/dL (6.0-8.3); Sodium 137 mmol/L (136-145); Triglycerides 74 mg/dL (Less than 150)
[2020-01-01] MEDS: Heparin 5,000 UNITS/ML VIAL SC SCH (07:58)
[2020-01-01] MEDS: Famotidine 20 MG TAB PO SCH (07:58)
[2020-01-01] MEDS ORDERED: Regadenoson 0.4 MG/5 ML SYRINGE ONE (08:42)
--- NOTE | 2020-01-01 08:50 | PDOC.HOSPP ---
- Subjective Encounter Date: 01/01/20 Encounter Time: 14:00 Subjective: Mr. Avilez is a 59 y/o M with a PMH of HTN, HLD, DM2, CVA with no motor deficits, and COPD who presented to ED for chest pain and dizziness. Patient seen and examined. No new complaints and patient states he feels great. No overnight events - Objective Vital Signs & Weight: Vital Signs (12 hours) Temp Pulse Resp BP Pulse Ox 01/01/20 04:00 98.0 F 59 L 20 155/87 H 97 01/01/20 00:22 69 Weight Weight 238 lb 7 oz I&O: 12/31/19 01/01/20 01/02/20 06:59 06:59 06:59 Intake Total 1280 Balance 1280 Result Diagrams: 01/01/20 04:05 01/01/20 04:05 Additional Labs: Accuchecks 01/01/20 12/31/19 06:01 21:16 POC Glucose 164 H 176 H Radiology Reviewed by me: Yes (Brain MRI showed no abnormalities, ECHO was not significant ) Hospitalist ROS - Review of Systems Constitutional: denies: fever, chills, sweats, weakness, malaise, other Eyes: denies: vision change Respiratory: denies: cough, shortness of breath, hemoptysis, SOB with excertion Cardiovascular: denies: chest pain, edema, light headedness Gastrointestinal: denies: nausea, vomiting, abdominal pain, diarrhea, constipation - Medication Medications: Active Medications Generic Name Dose Route Start Last Admin Trade Name Freq PRN Reason Stop Dose Admin Acetaminophen 650 mg 12/31/19 18:40 12/31/19 23:48 Tylenol PO 650 mg Q4H PRN Administration Headache/Fever/Mild Pain (1-3) Clopidogrel Bisulfate 75 mg 01/01/20 09:00 01/01/20 07:58 Plavix PO 75 mg DAILY NOAH Administration Famotidine 20 mg 12/31/19 21:00 01/01/20 07:58 Pepcid PO 20 mg BID NOAH Administration Heparin Sodium (Porcine) 5,000 units 12/31/19 21:00 01/01/20 07:58 Heparin SC 5,000 units BID NOAH Administration Sodium Chloride 1,000 mls @ 100 mls/hr 12/31/19 23:59 12/31/19 23:48 Normal Saline 0.9% IV 1,000 mls .Q10H NOAH Administration Sodium Chloride 10 ml 12/31/19 21:00 01/01/20 07:58 Flush - Normal Saline IVF Not Given Q12HR NOAH - Exam General Appearance: awake alert Neck: no JVD, no thyromegaly, no carotid bruit Heart: RRR, no murmur, no gallops, no rubs Respiratory: CTAB, no wheezes, no rales, no ronchi Gastrointestinal: soft, non-tender, normal bowel sounds, no bruit Psychiatric: normal affect, normal behavior, A&O x 3 Hosp A/P - Plan out of bed/ambulate, DVT proph w/heparin Chest pain: 2 week hx of chest pain associated with dizziness -CXR was negative for acute process -cardiac stress test was normal -EF was 60-65%, -HEART score of 5 Near syncope: PMH of HTN, DM2, and HLD which are significant Cv risk factors -left ear changes in hearing KLEVER: Patients GFR was 57 ml/min and Creatinine was 1.53 Leukocytosis: WBC for today were 15.9, down from 16.9 on admission D2M COPD HTN HLD Plan: Chest pain: monitor EKG, monitor vital signs, consult cardiology, continue Nitro PRN, continue patient on Plavix Near syncope: monitor maintenance of patient's CV risk factors KLEVER: avoid nephrotoxic drugs, hold WILLEM-I, monitor Cr and GFR Leukocytosis: monitor WBC count and for signs of infection D2M: continue sliding scale insulin, monitor patient's glucos COPD: monitor for pulmonary symptoms, albuterol/ipratropium available PRN HTN: hold WILLEM-I, monitor BP HLD: monitor patient's lipid profile
[2020-01-01] MEDS ORDERED: Clopidogrel Bisulfate 75 MG TAB PO SCH (09:00)
--- NOTE | 2020-01-01 09:22 | MRI ---
MRI LORRAINE WITHOUT CONTRAST: HISTORY: Vertigo, near syncope. COMPARISON: MRI of 03/09/2018. CORRELATION: CT scan from previous day. FINDINGS: No restricted diffusion is seen. There are foci of T2 prolongation in the periventricular white luiza er consistent with chronic small-vessel ischemic disease. The ventricular size is appropriate and th e basilar cisterns patent. No evidence of infarct, hemorrhage, midline shift, or abnormal extraaxial fluid collections is seen. There is mucosal disease in the paranasal sinuses. IMPRESSION: No evidence of acute intracranial process. POS: OFF
[2020-01-01] MEDS: Sodium Chloride 0.9% 1,000 ML IV SCH (10:00)
--- NOTE | 2020-01-01 12:56 | NM ---
NUCLEAR MEDICINE CARDIAC MYOCARDIAL PERFUSION SPECT EJECTION FRACTION STUDY WALL MOTION CINE: DATE: 01/01/2020 HISTORY: 59 year old hypertensive, diabetic smoker with dyslipidemia and family history of coronary artery dis ease presents with chest pain. TECHNIQUE: Number of days: 1 Rest study: Technetium 99m-sestamibi (Cardiolite) dose: 9.9 mCi Pharmacologic stress: Lexiscan dose: 0.4 mg Stress study: Technetium 99m-sestamibi (Cardiolite) dose: 33.0 mCi FINDINGS: CARDIAC (MYOCARDIAL PERFUSION) SPECT Distribution of sestamibi is homogeneous throughout the left ventricle, with no fixed or reversible m yocardial perfusion defects. EJECTION FRACTION STUDY Left ventricular EF = 61 % WALL MOTION CINE The left ventricular wall motion is normal. There is normal systolic wall thickening. IMPRESSION: Normal.
--- NOTE | 2020-01-01 15:38 | CON ---
DATE OF CONSULTATION: 01/01/2020 REASON FOR CONSULTATION: Chest pain and dizziness. HISTORY OF PRESENT ILLNESS: Mr. Avilez is a pleasant 59-year-old gentleman, who comes to the hospital for chest pain and dizziness. He states that the worst thing was the dizziness. He noticed for the last few weeks he had been congested, he could not hear from his left ear, and every time he stood up or move his head around, he would feel dizziness, like everything was spinning around him. He also noticed some burning on his left chest, which was not associated to the dizziness, so he decided to come in for evaluation. During his admission, he was started on steroids for his ears and actually his dizziness has completely gone. He feels he can hear again from his left ear and is feeling a lot better. He is telling me that he would like to go home. He denies any more chest pain or any chest fluttering since he was admitted. PAST MEDICAL HISTORY: 1. Hypertension. 2. Hyperlipidemia. 3. Type 2 diabetes. 4. COPD. 5. CVA with no residuals. 6. BPH. PAST SURGICAL HISTORY: Sinus surgery twice in the past. SOCIAL HISTORY: Former smoker, quit 2 years ago. Daily marijuana use. No alcohol use. FAMILY HISTORY: Early coronary artery disease in father. OUTPATIENT MEDICATIONS: 1. Lisinopril 20 mg twice a day. 2. Amlodipine 10 mg a day. 3. Metformin 1000 mg b.i.d. 4. Clonidine 0.1 b.i.d. 5. Atorvastatin 40 mg a day. 6. Clopidogrel 75 mg a day. 7. Flomax 0.4 a day. 8. Albuterol inhaler p.r.n. 9. Cetirizine 10 mg a day. 10. Fluticasone propionate 50 mcg intranasal spray a day. 11. Meclizine 12.5 mg daily. ALLERGIES: 1. ASPIRIN. 2. NSAIDS. 3. IODINE. 4. LATEX. 5. RUBBER. REVIEW OF SYSTEMS: A 12-point review of systems was done and was found to be negative other than stated in the history of present illness. PHYSICAL EXAMINATION: VITAL SIGNS: Temperature 98.1, pulse 55, respiratory rate 16, sat 95% on room air, and blood pressure 169/99. GENERAL: Awake, alert and oriented x3, in no distress. HEENT: Normocephalic and atraumatic. NECK: Supple. LUNGS: Clear. CARDIOVASCULAR: S1 and S2. No S3 or S4. No murmurs. ABDOMEN: Soft. Positive bowel sounds. EXTREMITIES: No edema. SKIN: Warm and dry. LABORATORY DATA: Laboratory work was reviewed. CBC with a white count of 16 down to 15, hemoglobin of 13, hematocrit of 40, and platelet count of 232. Chemistry with elevated creatinine of 1.55, GFR was 57, and glucose of 235. Troponin was 0.02, 0.02, 0.01. BNP was 184. Triglycerides 74, cholesterol 167, LDL of 114, and HDL of 38. UA with 600 protein, 500 glucose, 2+ blood, 7-10 hyaline cast. Urine drug screen, positive for opiates and cannabis. EKG was reviewed. Echocardiogram was reviewed, showed an EF of 60% to 65% with grade 1 diastolic dysfunction, RVSP of 30 mmHg. Nuclear stress test was completely normal. ASSESSMENT/PLAN: 1. Chest pain, atypical. Normal stress test and unremarkable echo. 2. Dizziness, improved after treating possible labyrinthitis. PLAN: 1. Currently, CV seems to be stable. No arrhythmias. No evidence of ACS on EKG, stress testing or blood work. We would discharge him home at any point from the cardiac perspective. 2. Follow up in the office in 4 weeks. We will discuss about possible monitoring for his history of strokes and fluttering of his chest. Thank you for letting us to participate in the care of your patient. We will sign off. Please call with any questions. Job ID: [id number]
[2020-01-01 16:33] VITALS: BP 170/97; TEMP 97.9
--- NOTE | 2020-01-01 17:52 | DIS ---
DATE OF ADMISSION: 12/31/2019 DATE OF DISCHARGE: 01/01/2020 DISCHARGE DISPOSITION: Home. FOLLOWUP: Follow up with primary care physician at [facility] in [place] in 1 week. The patient was seen and examined on the day of discharge. Denies any new complaints. No chest pain, shortness of breath, palpitations, lightheadedness, dizziness, or vertigo reported. DISCHARGE MEDICATIONS: Prednisone 20 mg daily for next 4 days. All other home medications were left unchanged. BRIEF HOSPITAL COURSE: The patient is a 59-year-old male with hypertension, hyperlipidemia, and diabetes mellitus type 2 and CVA, presented to the emergency room with chest discomfort along with lightheadedness and dizziness. He describes the chest pain as a fluttering pressure, which is constant without any relieving factor. He had some nausea along with one episode of vomiting. His HEART score was 5. His EKG showed sinus rhythm with PACs. His troponins were in the indeterminate range. Please refer to the history and physical for further details. The patient was admitted to the hospital with a diagnosis of chest discomfort along with fluttering pressure and near syncope. Telemetry monitoring did not reveal significant arrhythmias. He underwent a Cardiolite stress test that was negative for reversible ischemia. Ejection fraction was 61% without any wall motion abnormality. Due to persistent dizziness, he underwent an MRI of the brain that was negative for acute CVA. Carotid Doppler was negative for hemodynamically significant stenosis. Aortic dissection was also ruled out in the emergency room. 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 There was also a fat density mass in the adipose layer in the right upper posterior chest with irregular areas of soft tissue density presenting a mass. Primary care physician is advised to follow up on possible causes like liposarcoma. An MRI with and without IV contrast is recommended for evaluation. He received 1 dose of steroids in the emergency room after which his symptoms improved. He will continue prednisone for the next 3 to 4 days due to possible vestibular neuronitis causing his symptoms. He appears stable for discharge. 1. Chest discomfort, acute coronary syndrome ruled out. 2. Near syncope with vertigo. 3. Acute kidney injury. His creatinine on admission was 1.55 that improved to 1.12. He will benefit from a repeat imaging after 1 to 2 weeks. A renal ultrasound was negative for obstructive uropathy. 4. Leukocytosis of 16.9 of unclear etiology. 5. Fat density mass in the right upper posterior chest. Primary care physician advised to follow. 6. Diabetes mellitus type 2. 7. Chronic obstructive pulmonary disease. 8. Hypertension. 9. Hyperlipidemia. 10. Benign prostatic hypertrophy. INPATIENT CONSULTANTS: 1. Cardiology, Dr. Medina. Dr. Medina recommended outpatient followup in [address] Medina will discuss for possible monitoring due to history of stroke along with fluttering of his chest. 2. An echocardiogram was obtained that showed ejection fraction of 60% to 65% with grade 1 of 3 diastolic dysfunction, [id number] tricuspid regurgitation. 3. The patient understands the above plan of care. Job ID: [id number]
--- NOTE | 2020-01-07 15:15 | STRESS ---
Acquisition Time: 2020-01-01 10:50:51 Total Exercise Time: 00:01:00 Test Indications: CHEST PAIN Medications: Protocol: LEXISCAN Max HR: 078 BPM 48% of Pred: 160 BPM Max BP: 146/100 mmHG Max Work Load: 1.0 METS RESTING ECG: SINUS BRADYCARDIA AT 50 BPM WITH INTRAVENTRICULAR CONDUCTION DELAY AND NON-SPECIFIC ST SEGMENT AND T-WAVE CHANGES SYMPTOMS: NONE NORMAL BP RESPONSE ECTOPY: NONE ECG STRESS: NO SIGNIFICANT CHANGES INTERPRETATION: INDETERMINATE ECG/AWAIT NUCLEAR IMAGES FOR DEFINITIVE DIAGNOSIS Confirmed by ARJUN RUVALCABA M.D. ([id number] on 01/07/2020 3:14:24 PM Referred By: RENO HANNAH Confirmed By:ARJUN RUVALCABA M.D.
== END 2020-01-01 17:29 | disposition home or self-care (01) ==
LOC: ERS 15:07 → 2NO 17:44
PROVIDERS: ADMIT Internal Medicine; ATTEND Internal Medicine
DX: R07.89 Other chest pain (principal); R55 Syncope and collapse; R42 Dizziness and giddiness; N17.9 Acute kidney failure, unspecified; D72.829 Elevated white blood cell count, unspecified; R22.2 Localized swelling, mass and lump, trunk; E11.9 Type 2 diabetes mellitus without complications; J47.9 Bronchiectasis, uncomplicated; I10 Essential (primary) hypertension; E78.5 Hyperlipidemia, unspecified; N40.0 Benign prostatic hyperplasia without lower urinary tract symptoms; I70.0 Atherosclerosis of aorta; I77.810 Thoracic aortic ectasia; F12.10 Cannabis abuse, uncomplicated; Z86.73 Personal history of transient ischemic attack (TIA), and cerebral infarction without residual deficits; Z87.891 Personal history of nicotine dependence; Z79.02 Long term (current) use of antithrombotics/antiplatelets; Z79.84 Long term (current) use of oral hypoglycemic drugs; Z79.899 Other long term (current) drug therapy; Z88.6 Allergy status to analgesic agent; Z91.040 Latex allergy status; Z91.041 Radiographic dye allergy status
CPT/HCPCS: 70450; 70551; 71045; 71275; 72191; 74175; 76770; 78452; 80053; 80061; 80306; 82550; 82962 ×2; 83690 ×2; 83735; 83880; 84484 ×2; 85025; 93005; 93017; 93306; 93880; 94760 ×2; 96361; 96374; 96375; 97139; 99285; A9500; 36415; 36416; 81003; 81015; 84443; 96372; G0378; J1200; J1644; J2270; J2405; J2785; J2920; Q9967; S0028

== ENCOUNTER 2021-05-10 14:06 | Inpatient (IN) | payer MEDICARE ==
[2021-05-10 14:50] LABS: #Basophils 0.1 thou/uL (0.0-0.2); #Eosinphils 0.8 thou/uL (0.0-0.7); #Lymphocytes 2.7 thou/uL (1.20-3.40); #Monocytes 0.9 thou/uL (0.11-0.59); #Neutrophils 7.7 thou/uL (1.40-6.50); %Basophils 0.8 % (0.0-1.0); %Eosinophils 6.9 % (0.0-10.0); %Lymphocytes 22.1 % (21.0-51.0); %Neutrophils 63.1 % (42.0-75.0); Hemoglobin 12.3 g/dL (14.0-18.0); Mean Corpuscular Hemoglobin 31.2 pg (27.0-31.0); Mean Platelet Volume 6.7 fL (7.4-10.4); Platelet Count 325 thou/uL (130-400); RBC Distribution Width 13.9 % (11.5-14.5); Red Blood Cell (RBC) Count 3.93 mill/uL (4.70-6.10); White Blood Cell (WBC) Count 12.2 thou/uL (4.8-10.8)
[2021-05-10 15:18] LABS: ALT (SGPT) 37 U/L (8-55); AST (SGOT) 67 U/L (5-34); Albumin 2.4 g/dL (3.4-4.8); Alkaline Phosphatase 83 U/L (40-110); Anion Gap 12 mmol/L (10-20); BUN (Urea Nitrogen) 27 mg/dL (8.4-25.7); Bilirubin, Total 0.3 mg/dL (0.2-1.2); Calc. Creatinine Clearance 0 mL/min (70-130); Calcium 6.5 mg/dL (7.8-10.44); Carbon Dioxide 18 mmol/L (23-31); Chloride 111 mmol/L (98-107); Globulin 3.2 g/dL (2.4-3.5); Glucose 98 mg/dL (80-115); Potassium 3.4 mmol/L (3.5-5.1); Protein, Total 5.6 g/dL (5.8-8.1); Sodium 138 mmol/L (136-145)
[2021-05-10] MEDS ORDERED: Nitroglycerin 2% Ointment 1 INCH/1 GM Packet ONE (15:39)
[2021-05-10] MEDS ORDERED: predniSONE 20 MG TAB ONE (16:28)
[2021-05-10] MEDS ORDERED: Bisacodyl 5 MG TAB PO PRN (17:59)
[2021-05-10] MEDS ORDERED: HYDROcodone/Acetaminophen 7.5/325 mg Tablet PO PRN (17:59)
[2021-05-10] MEDS ORDERED: HYDROcodone/Acetaminophen 5/325 mg Tablet PO PRN (17:59)
[2021-05-10] MEDS ORDERED: Ondansetron PF 4 MG/2 ML Vial IVP PRN (17:59)
[2021-05-10] MEDS ORDERED: Acetaminophen 325 MG TAB PO PRN (17:59)
[2021-05-10] MEDS ORDERED: Senokot S 8.6-50 MG TAB PO PRN (17:59)
[2021-05-10 18:22] LABS: Troponin I 0.011 ng/mL (< 0.028)
[2021-05-10] MEDS ORDERED: Melatonin 3 MG TAB PO PRN (18:24)
[2021-05-10] MEDS ORDERED: hydrALAZINE 20 MG/ML VIAL SLOW IVP PRN (18:24)
[2021-05-10] MEDS ORDERED: Morphine 4 MG/ML VIAL ONE (19:22)
[2021-05-10 20:05] VITALS: BMI 30.9
[2021-05-10] MEDS ORDERED: Famotidine/PF 20 mg/2ml Vial ONE (20:30)
[2021-05-10] MEDS: Heparin 5,000 UNITS/ML VIAL SC SCH (20:36)
[2021-05-10] MEDS ORDERED: Famotidine/PF 20 mg/2ml Vial SLOW IVP SCH (21:00)
[2021-05-10 21:21] LABS: Troponin I 0.017 ng/mL (< 0.028)
[2021-05-10 23:44] LABS: SARS-CoV-2 NAA Rapid Test Not Detected (NotDetected)
[2021-05-11] MEDS ORDERED: hydrALAZINE 20 MG/ML VIAL ONE (01:42)
[2021-05-11 06:34] LABS: #Basophils 0.1 thou/uL (0.0-0.2); #Lymphocytes 1.5 thou/uL (1.20-3.40); #Monocytes 0.3 thou/uL (0.11-0.59); %Basophils 0.7 % (0.0-1.0); %Eosinophils 0.1 % (0.0-10.0); %Lymphocytes 10.6 % (21.0-51.0); %Monocytes 2.2 % (0.0-10.0); %Neutrophils 86.4 % (42.0-75.0); Hemoglobin 11.7 g/dL (14.0-18.0); Mean Corpuscular HGB CONC 33.7 g/dL (32.0-36.0); Mean Corpuscular Hemoglobin 31.3 pg (27.0-31.0); Mean Corpuscular Volume 92.7 fL (78.0-98.0); Mean Platelet Volume 6.9 fL (7.4-10.4); Platelet Count 341 thou/uL (130-400); RBC Distribution Width 13.9 % (11.5-14.5); Red Blood Cell (RBC) Count 3.75 mill/uL (4.70-6.10); White Blood Cell (WBC) Count 13.8 thou/uL (4.8-10.8)
[2021-05-11 06:56] LABS: ALT (SGPT) 35 U/L (8-55); AST (SGOT) 56 U/L (5-34); Albumin 2.3 g/dL (3.4-4.8); Alkaline Phosphatase 69 U/L (40-110); Anion Gap 12 mmol/L (10-20); BUN (Urea Nitrogen) 30 mg/dL (8.4-25.7); Bilirubin, Total 0.2 mg/dL (0.2-1.2); Calc. Creatinine Clearance 39 mL/min (70-130); Calcium 7.2 mg/dL (7.8-10.44); Carbon Dioxide 19 mmol/L (23-31); Chloride 108 mmol/L (98-107); Globulin 3.8 g/dL (2.4-3.5); Glucose 183 mg/dL (80-115); Potassium 3.4 mmol/L (3.5-5.1); Protein, Total 6.1 g/dL (5.8-8.1); Sodium 136 mmol/L (136-145)
[2021-05-11] MEDS ORDERED: predniSONE 20 MG TAB PO SCH (08:00)
[2021-05-11] MEDS: Heparin 5,000 UNITS/ML VIAL SC SCH ×2 (09:00→20:49)
[2021-05-11] MEDS ORDERED: HumaLOG 300 UNITS/3 ML VIAL SC PRN (14:07)
[2021-05-11] MEDS ORDERED: Dextrose 50% Abboject 50 ML SYRINGE SLOW IVP PRN (14:07)
[2021-05-11] MEDS ORDERED: Dextrose 5% in Water 1,000 ML IV PRN (14:07)
[2021-05-11] MEDS ORDERED: Amlodipine 10 MG TAB PO SCH (14:15)
[2021-05-11] MEDS: Sodium Chloride 0.9% 1,000 ML IV SCH ×2 (15:07→23:57)
[2021-05-11] MEDS ORDERED: Metoprolol Tartrate 25 MG TAB PO SCH (16:00)
[2021-05-11] MEDS: Mometasone 200 MCG/Formoterol 5 MCG 120 PUFF INHALER INH SCH ×2 (16:58→19:06)
[2021-05-11] MEDS: HumaLOG 300 UNITS/3 ML VIAL SC PRN (17:04)
[2021-05-11] MEDS: Lantus 1000 UNITS/10 ML VIAL SC SCH (20:49)
[2021-05-11] MEDS: Metoprolol Tartrate 25 MG TAB PO SCH (20:52)
[2021-05-11] MEDS: cloNIDine 0.1 MG TAB PO SCH (20:53)
[2021-05-11] MEDS: Tamsulosin HCl 0.4 MG CAP PO SCH (20:53)
[2021-05-11] MEDS: Famotidine 20 MG TAB PO SCH (20:53)
[2021-05-12 05:41] LABS: #Lymphocytes 2.7 thou/uL (1.20-3.40); %Basophils 0.2 % (0.0-1.0); %Eosinophils 0.1 % (0.0-10.0); %Neutrophils 74.7 % (42.0-75.0); Hemoglobin 10.7 g/dL (14.0-18.0); Mean Corpuscular HGB CONC 33.9 g/dL (32.0-36.0); Mean Corpuscular Hemoglobin 31.2 pg (27.0-31.0); Mean Platelet Volume 7.2 fL (7.4-10.4); Platelet Count 308 thou/uL (130-400); RBC Distribution Width 13.9 % (11.5-14.5); Red Blood Cell (RBC) Count 3.43 mill/uL (4.70-6.10); White Blood Cell (WBC) Count 14.7 thou/uL (4.8-10.8)
[2021-05-12 06:09] LABS: ALT (SGPT) 32 U/L (8-55); AST (SGOT) 57 U/L (5-34); Albumin 2.1 g/dL (3.4-4.8); Alkaline Phosphatase 60 U/L (40-110); Anion Gap 11 mmol/L (10-20); BUN (Urea Nitrogen) 39 mg/dL (8.4-25.7); Bilirubin, Total 0.2 mg/dL (0.2-1.2); Calc. Creatinine Clearance 38 mL/min (70-130); Calcium 6.6 mg/dL (7.8-10.44); Carbon Dioxide 20 mmol/L (23-31); Chloride 110 mmol/L (98-107); Globulin 3.2 g/dL (2.4-3.5); Glucose 82 mg/dL (80-115); Potassium 3.6 mmol/L (3.5-5.1); Protein, Total 5.3 g/dL (5.8-8.1); Sodium 137 mmol/L (136-145)
[2021-05-12] MEDS: Sodium Chloride 0.9% 1,000 ML IV SCH ×2 (08:26→10:05)
[2021-05-12] MEDS: predniSONE 20 MG TAB PO SCH (08:27)
[2021-05-12] MEDS: Metoprolol Tartrate 25 MG TAB PO SCH ×2 (08:27→20:40)
[2021-05-12] MEDS: Amlodipine 10 MG TAB PO SCH (08:28)
[2021-05-12] MEDS: cloNIDine 0.1 MG TAB PO SCH ×2 (08:28→20:26)
[2021-05-12] MEDS: Clopidogrel Bisulfate 75 MG TAB PO SCH (08:28)
[2021-05-12] MEDS: Loratadine 10 MG TAB PO SCH (08:28)
[2021-05-12] MEDS: Heparin 5,000 UNITS/ML VIAL SC SCH ×2 (08:31→20:25)
[2021-05-12] MEDS: Mometasone 200 MCG/Formoterol 5 MCG 120 PUFF INHALER INH SCH ×2 (08:32→18:32)
[2021-05-12 14:48] LABS: Creatinine, Urine 60.43 mg/dL (63-166)
[2021-05-12] MEDS: Lantus 1000 UNITS/10 ML VIAL SC SCH ×2 (16:57→21:00)
[2021-05-12] MEDS: HumaLOG 300 UNITS/3 ML VIAL SC PRN (17:44)
[2021-05-12 17:58] LABS: Complement-C4 53.7 mg/dL (15-53)
[2021-05-12] MEDS: Famotidine 20 MG TAB PO SCH (20:25)
[2021-05-12] MEDS: Senokot S 8.6-50 MG TAB PO SCH (20:25)
[2021-05-12] MEDS: Tamsulosin HCl 0.4 MG CAP PO SCH (20:26)
[2021-05-12] MEDS ORDERED: Metoprolol Tartrate 25 MG TAB PO SCH (21:00)
[2021-05-13] MEDS: Sodium Chloride 0.9% 1,000 ML IV SCH ×2 (01:46→22:15)
[2021-05-13 04:54] LABS: #Basophils 0.1 thou/uL (0.0-0.2); #Lymphocytes 3.5 thou/uL (1.20-3.40); #Monocytes 1.2 thou/uL (0.11-0.59); #Neutrophils 10.5 thou/uL (1.40-6.50); %Basophils 0.7 % (0.0-1.0); %Eosinophils 0.3 % (0.0-10.0); %Lymphocytes 22.6 % (21.0-51.0); %Monocytes 7.8 % (0.0-10.0); %Neutrophils 68.7 % (42.0-75.0); Hemoglobin 10.9 g/dL (14.0-18.0); Mean Corpuscular HGB CONC 33.2 g/dL (32.0-36.0); Mean Corpuscular Hemoglobin 30.5 pg (27.0-31.0); Mean Corpuscular Volume 91.7 fL (78.0-98.0); Mean Platelet Volume 6.9 fL (7.4-10.4); Platelet Count 337 thou/uL (130-400); RBC Distribution Width 13.6 % (11.5-14.5); Red Blood Cell (RBC) Count 3.59 mill/uL (4.70-6.10); White Blood Cell (WBC) Count 15.3 thou/uL (4.8-10.8)
[2021-05-13 05:14] LABS: ALT (SGPT) 37 U/L (8-55); AST (SGOT) 58 U/L (5-34); Albumin 2.2 g/dL (3.4-4.8); Alkaline Phosphatase 69 U/L (40-110); Anion Gap 11 mmol/L (10-20); BUN (Urea Nitrogen) 42 mg/dL (8.4-25.7); Bilirubin, Total 0.2 mg/dL (0.2-1.2); Calc. Creatinine Clearance 39 mL/min (70-130); Calcium 6.6 mg/dL (7.8-10.44); Carbon Dioxide 21 mmol/L (23-31); Chloride 111 mmol/L (98-107); Globulin 3.4 g/dL (2.4-3.5); Glucose 61 mg/dL (80-115); Potassium 3.5 mmol/L (3.5-5.1); Protein, Total 5.6 g/dL (5.8-8.1); Sodium 139 mmol/L (136-145)
[2021-05-13] MEDS: Mometasone 200 MCG/Formoterol 5 MCG 120 PUFF INHALER INH SCH ×2 (07:30→19:09)
[2021-05-13 07:47] LABS: HBSAg Index 0.22 S/CO (0-0.99); Hep B Surf Ag Non-Reactive S/CO (NonReactive)
[2021-05-13 07:48] LABS: HBSAB Concentration Less than 8.00 mIU/mL; Hep B Surf AB Non-Reactive (NonReactive)
[2021-05-13 07:57] LABS: Hep C IgG Ab Reflex HepC Qnt (NonReactive); Hep C Index 13.68 S/CO (0-0.79)
[2021-05-13] MEDS: predniSONE 20 MG TAB PO SCH (09:38)
[2021-05-13] MEDS: Amlodipine 10 MG TAB PO SCH (09:39)
[2021-05-13] MEDS: Heparin 5,000 UNITS/ML VIAL SC SCH ×2 (09:40→20:25)
[2021-05-13] MEDS: Clopidogrel Bisulfate 75 MG TAB PO SCH (09:40)
[2021-05-13] MEDS: cloNIDine 0.1 MG TAB PO SCH ×2 (09:40→20:27)
[2021-05-13] MEDS: Loratadine 10 MG TAB PO SCH (09:40)
[2021-05-13] MEDS: Senokot S 8.6-50 MG TAB PO SCH ×2 (09:40→20:26)
[2021-05-13] MEDS: Metoprolol Tartrate 50 MG TAB PO SCH ×2 (09:40→20:27)
[2021-05-13] MEDS: Lantus 1000 UNITS/10 ML VIAL SC SCH ×2 (09:41→20:26)
[2021-05-13 12:36] LABS: ANA Symphony (Qualitative) Negative (Negative); ANA Symphony (Quantitative) 0.2 Ratio (< 0.7 Negative); dsDNA IgG Antibody 0.7 IU/mL (<10 Negative)
[2021-05-13] MEDS: Famotidine 20 MG TAB PO SCH (20:27)
[2021-05-13] MEDS: Tamsulosin HCl 0.4 MG CAP PO SCH (20:27)
[2021-05-13] MEDS ORDERED: hydrALAZINE 25 MG TAB PO SCH (21:00)
[2021-05-14 05:53] LABS: Anion Gap 13 mmol/L (10-20); BUN (Urea Nitrogen) 43 mg/dL (8.4-25.7); Calc. Creatinine Clearance 41 mL/min (70-130); Calcium 6.5 mg/dL (7.8-10.44); Carbon Dioxide 18 mmol/L (23-31); Chloride 112 mmol/L (98-107); Glucose 94 mg/dL (80-115); Potassium 3.6 mmol/L (3.5-5.1); Sodium 139 mmol/L (136-145)
[2021-05-14] MEDS: Mometasone 200 MCG/Formoterol 5 MCG 120 PUFF INHALER INH SCH ×2 (08:02→19:17)
[2021-05-14] MEDS: Clopidogrel Bisulfate 75 MG TAB PO SCH (08:48)
[2021-05-14] MEDS: predniSONE 20 MG TAB PO SCH (08:48)
[2021-05-14] MEDS: Amlodipine 10 MG TAB PO SCH (08:48)
[2021-05-14] MEDS: Metoprolol Tartrate 50 MG TAB PO SCH ×2 (08:48→20:53)
[2021-05-14] MEDS: hydrALAZINE 25 MG TAB PO SCH ×3 (08:48→20:52)
[2021-05-14] MEDS: Heparin 5,000 UNITS/ML VIAL SC SCH ×2 (08:49→20:52)
[2021-05-14] MEDS: cloNIDine 0.1 MG TAB PO SCH ×2 (08:49→20:53)
[2021-05-14] MEDS: Loratadine 10 MG TAB PO SCH (08:49)
[2021-05-14] MEDS: Senokot S 8.6-50 MG TAB PO SCH ×2 (08:49→20:52)
[2021-05-14] MEDS: Lantus 1000 UNITS/10 ML VIAL SC SCH ×2 (08:49→20:52)
[2021-05-14] MEDS ORDERED: FLU VACC QS2021-22(6MOS UP)/PF 60 MCG/0.5 ML SYRINGE IM ONE (09:00)
[2021-05-14] MEDS: Calcium Carbonate 500 MG ChewTAB PO PRN (15:21)
[2021-05-14] MEDS: Tamsulosin HCl 0.4 MG CAP PO SCH (20:53)
[2021-05-14] MEDS: Famotidine 20 MG TAB PO SCH (20:53)
[2021-05-15] MEDS: Calcium Carbonate 500 MG ChewTAB PO PRN (04:03)
[2021-05-15 04:58] LABS: #Basophils 0.1 thou/uL (0.0-0.2); #Eosinphils 0.1 thou/uL (0.0-0.7); #Lymphocytes 3.5 thou/uL (1.20-3.40); #Monocytes 1.4 thou/uL (0.11-0.59); #Neutrophils 9.4 thou/uL (1.40-6.50); %Basophils 0.6 % (0.0-1.0); %Eosinophils 0.5 % (0.0-10.0); %Lymphocytes 24.4 % (21.0-51.0); %Monocytes 9.7 % (0.0-10.0); %Neutrophils 64.8 % (42.0-75.0); Hemoglobin 11.2 g/dL (14.0-18.0); Mean Platelet Volume 7.1 fL (7.4-10.4); Platelet Count 359 thou/uL (130-400); RBC Distribution Width 13.4 % (11.5-14.5); Red Blood Cell (RBC) Count 3.74 mill/uL (4.70-6.10); White Blood Cell (WBC) Count 14.5 thou/uL (4.8-10.8)
[2021-05-15 05:13] LABS: ALT (SGPT) 43 U/L (8-55); AST (SGOT) 51 U/L (5-34); Albumin 1.9 g/dL (3.4-4.8); Alkaline Phosphatase 70 U/L (40-110); Anion Gap 13 mmol/L (10-20); BUN (Urea Nitrogen) 38 mg/dL (8.4-25.7); Bilirubin, Total Less than 0.2 mg/dL (0.2-1.2); Calc. Creatinine Clearance 44 mL/min (70-130); Calcium 6.5 mg/dL (7.8-10.44); Carbon Dioxide 18 mmol/L (23-31); Chloride 110 mmol/L (98-107); Globulin 3.5 g/dL (2.4-3.5); Glucose 83 mg/dL (80-115); Magnesium 1.8 mg/dL (1.6-2.6); Phosphorus 3.8 mg/dL (2.3-4.7); Potassium 3.5 mmol/L (3.5-5.1); Protein, Total 5.4 g/dL (5.8-8.1); Sodium 137 mmol/L (136-145)
[2021-05-15] MEDS ORDERED: hydrALAZINE 25 MG TAB PO SCH (06:13)
[2021-05-15] MEDS: Mometasone 200 MCG/Formoterol 5 MCG 120 PUFF INHALER INH SCH (07:00)
[2021-05-15 07:28] VITALS: TEMP 98.1
[2021-05-15] MEDS ORDERED: Calcium Carbonate 500 MG TAB PO SCH (08:00)
[2021-05-15] MEDS: Heparin 5,000 UNITS/ML VIAL SC SCH (08:34)
[2021-05-15] MEDS: predniSONE 20 MG TAB PO SCH (08:35)
[2021-05-15] MEDS: Loratadine 10 MG TAB PO SCH (08:36)
[2021-05-15] MEDS: Senokot S 8.6-50 MG TAB PO SCH (08:36)
[2021-05-15] MEDS: Amlodipine 10 MG TAB PO SCH (08:36)
[2021-05-15] MEDS: Clopidogrel Bisulfate 75 MG TAB PO SCH (08:36)
[2021-05-15] MEDS: Metoprolol Tartrate 50 MG TAB PO SCH (08:36)
[2021-05-15] MEDS: cloNIDine 0.1 MG TAB PO SCH (08:36)
[2021-05-15 08:42] VITALS: BP 181/112
[2021-05-15] MEDS ORDERED: Lantus 1000 UNITS/10 ML VIAL SC SCH ×2 (09:00→21:00)
[2021-05-15] MEDS ORDERED: Sodium Bicarbonate Tab 325 MG TAB PO SCH (09:00)
[2021-05-15] MEDS ORDERED: Carvedilol 25 MG TAB PO SCH (17:00)
[2021-05-15 18:12] LABS: HCV log10 5.182 (.); Hep C PCR-Quant 152000 IU/mL (.)
[2021-05-16 15:14] LABS: Cytoplasmic (C-ANCA) <1:20 titer (Neg:<1:20); Perinuclear (P-ANCA) <1:20 titer (Neg:<1:20)
[2021-05-16 18:09] LABS: Albumin-Ur 55.8 % (.); Alpha 1 - Ur 8.1 % (.); Alpha 2 - Ur 7.5 % (.); Beta-Ur 17.6 % (.); Gamma-Ur 10.9 % (.); M-Spike,% Not Observed % (Not Observed); Protein, Urine 889.3 mg/dL (Not Estab.)
[2021-05-16 18:09] LABS: A/G Ratio 0.5 (0.7-1.7); Albumin 1.7 g/dL (2.9-4.4); Alpha 1 0.2 g/dL (0.0-0.4); Alpha 2 1.2 g/dL (0.4-1.0); Gamma 0.7 g/dL (0.4-1.8); Globulin, Total 3.1 g/dL (2.2-3.9); M-Spike Not Observed g/dL (Not Observed); Protein Electrophoresis Intrp Note: (.)
== END 2021-05-15 11:03 | disposition home or self-care (01) | DRG 191 ==
LOC: ERS 14:06 → ERHOLD 17:15 → 2NO 05-11 03:09 → OBSVTOIN 05-11 13:52
PROVIDERS: ADMIT Internal Medicine; ATTEND Internal Medicine
DX: J44.1 Chronic obstructive pulmonary disease with (acute) exacerbation (principal); N17.9 Acute kidney failure, unspecified; E87.2 Acidosis; N18.4 Chronic kidney disease, stage 4 (severe); Z20.822 Contact with and (suspected) exposure to COVID-19; B18.2 Chronic viral hepatitis C; N40.0 Benign prostatic hyperplasia without lower urinary tract symptoms; E66.9 Obesity, unspecified; I12.9 Hypertensive chronic kidney disease with stage 1 through stage 4 chronic kidney disease, or unspecified chronic kidney disease; F14.10 Cocaine abuse, uncomplicated; D72.829 Elevated white blood cell count, unspecified; E87.6 Hypokalemia; D63.1 Anemia in chronic kidney disease; E11.22 Type 2 diabetes mellitus with diabetic chronic kidney disease; I08.1 Rheumatic disorders of both mitral and tricuspid valves; Z28.21 Immunization not carried out because of patient refusal; Z68.32 Body mass index [BMI] 32.0-32.9, adult; Z95.5 Presence of coronary angioplasty implant and graft; Z86.73 Personal history of transient ischemic attack (TIA), and cerebral infarction without residual deficits; Z88.8 Allergy status to other drugs, medicaments and biological substances; Z88.6 Allergy status to analgesic agent; Z91.041 Radiographic dye allergy status; Z91.040 Latex allergy status; Z79.899 Other long term (current) drug therapy; Z79.4 Long term (current) use of insulin; Z79.84 Long term (current) use of oral hypoglycemic drugs; Z79.02 Long term (current) use of antithrombotics/antiplatelets; Z79.51 Long term (current) use of inhaled steroids; Z79.52 Long term (current) use of systemic steroids; Z87.891 Personal history of nicotine dependence
CPT/HCPCS: 36415; 36416; 71045; 76770; 80048; 80053; 82570; 83735; 83880; 84100; 84156; 84165; 84166; 84484; 85025; 86038; 86160; 86225; 86256; 86706; 86803; 87340; 87522; 93005; 93306; 94640; 96374; G0378; J0360; J1644; J1815; J2270; J7050; J7512; J7620; S0028; U0002

== ENCOUNTER 2021-05-20 11:11 | Emergency (ER) | payer MEDICARE, OTHER ==
[2021-05-20 12:28] LABS: #Basophils 0.1 thou/uL (0.0-0.2); #Eosinphils 0.6 thou/uL (0.0-0.7); #Neutrophils 8.2 thou/uL (1.40-6.50); %Basophils 0.6 % (0.0-1.0); %Eosinophils 4.7 % (0.0-10.0); %Lymphocytes 23.2 % (21.0-51.0); %Neutrophils 63.5 % (42.0-75.0); Hemoglobin 12.2 g/dL (14.0-18.0); Mean Corpuscular HGB CONC 33.7 g/dL (32.0-36.0); Mean Corpuscular Hemoglobin 31.6 pg (27.0-31.0); Mean Corpuscular Volume 93.8 fL (78.0-98.0); Mean Platelet Volume 7.3 fL (7.4-10.4); Platelet Count 407 thou/uL (130-400); RBC Distribution Width 13.4 % (11.5-14.5); Red Blood Cell (RBC) Count 3.88 mill/uL (4.70-6.10); White Blood Cell (WBC) Count 12.9 thou/uL (4.8-10.8)
[2021-05-20 12:50] LABS: ALT (SGPT) 58 U/L (8-55); AST (SGOT) 54 U/L (5-34); Alkaline Phosphatase 104 U/L (40-110); Anion Gap 13 mmol/L (10-20); BUN (Urea Nitrogen) 46 mg/dL (8.4-25.7); Bilirubin, Total Less than 0.2 mg/dL (0.2-1.2); Calc. Creatinine Clearance 0 mL/min (70-130); Calcium 6.7 mg/dL (7.8-10.44); Carbon Dioxide 20 mmol/L (23-31); Chloride 110 mmol/L (98-107); Globulin 3.1 g/dL (2.4-3.5); Glucose 169 mg/dL (80-115); Potassium 4.5 mmol/L (3.5-5.1); Protein, Total 5.1 g/dL (5.8-8.1); Sodium 138 mmol/L (136-145)
== END 2021-05-20 14:12 | disposition home or self-care (01) ==
LOC: ERS 11:11
DX: I12.9 Hypertensive chronic kidney disease with stage 1 through stage 4 chronic kidney disease, or unspecified chronic kidney disease (principal); R60.0 Localized edema; N18.9 Chronic kidney disease, unspecified; E11.22 Type 2 diabetes mellitus with diabetic chronic kidney disease; Z86.73 Personal history of transient ischemic attack (TIA), and cerebral infarction without residual deficits; Z87.891 Personal history of nicotine dependence
CPT/HCPCS: 36415; 71045; 80053; 83880; 84484; 85025; 93005

== ENCOUNTER 2022-01-19 13:00 | Emergency (ER) | payer MEDICARE ==
[2022-01-19 13:24] LABS: #Basophils 0.1 thou/uL (0.0-0.2); #Eosinphils 1.5 thou/uL (0.0-0.7); #Lymphocytes 2.3 thou/uL (1.20-3.40); #Monocytes 0.7 thou/uL (0.11-0.59); #Neutrophils 4.5 thou/uL (1.40-6.50); %Eosinophils 16.5 % (0.0-10.0); %Lymphocytes 25.8 % (21.0-51.0); %Monocytes 7.3 % (0.0-10.0); %Neutrophils 49.4 % (42.0-75.0); Hemoglobin 10.4 g/dL (14.0-18.0); Mean Corpuscular HGB CONC 32.3 g/dL (32.0-36.0); Mean Corpuscular Volume 89.7 fL (78.0-98.0); Mean Platelet Volume 7.3 fL (7.4-10.4); Platelet Count 316 thou/uL (130-400); Red Blood Cell (RBC) Count 3.59 mill/uL (4.70-6.10)
[2022-01-19 13:49] LABS: ALT (SGPT) 27 U/L (8-55); AST (SGOT) 36 U/L (5-34); Albumin 3.5 g/dL (3.4-4.8); Alkaline Phosphatase 68 U/L (40-110); Anion Gap 17 mmol/L (10-20); BUN (Urea Nitrogen) 62 mg/dL (8.4-25.7); Bilirubin, Total 0.3 mg/dL (0.2-1.2); Calc. Creatinine Clearance 0 mL/min (70-130); Calcium 7.6 mg/dL (7.8-10.44); Carbon Dioxide 21 mmol/L (23-31); Chloride 103 mmol/L (98-107); Estimated GFR 9; Globulin 4.3 g/dL (2.4-3.5); Glucose 102 mg/dL (80-115); Potassium 4.9 mmol/L (3.5-5.1); Protein, Total 7.8 g/dL (5.8-8.1); Sodium 136 mmol/L (136-145)
[2022-01-19] MEDS ORDERED: predniSONE 20 MG TAB ONE (13:57)
[2022-01-19] MEDS ORDERED: Albuterol Sulfate 2.5 mg/0.5 ml Neb ONE (14:10)
== END 2022-01-19 17:58 | disposition home or self-care (01) ==
LOC: ERS 13:00
DX: J45.901 Unspecified asthma with (acute) exacerbation (principal); E11.9 Type 2 diabetes mellitus without complications; I10 Essential (primary) hypertension; Z87.891 Personal history of nicotine dependence; Z79.899 Other long term (current) drug therapy
CPT/HCPCS: 71045; 80053; 83880; 84484; 85025; 93005; J7512; J7611; J7620

== ENCOUNTER 2022-09-07 15:46 | Inpatient (IN) | payer MEDICARE, OTHER ==
[2022-09-07 17:40] LABS: Hemoglobin 7.1 g/dL (14.0-18.0); Mean Corpuscular Hemoglobin 27.9 pg (27.0-31.0); Mean Corpuscular Volume 84.5 fl (78.0-98.0); Platelet Count 359 10x3/uL (130-400); RBC Distribution Width 15.5 % (11.5-14.5); Red Blood Cell (RBC) Count 2.53 mill/uL (4.70-6.10); White Blood Cell (WBC) Count 10.2 10x3/uL (4.8-10.8)
[2022-09-07 17:54] LABS: ALT (SGPT) 47 U/L (8-55); AST (SGOT) 54 U/L (5-34); Albumin 3.7 g/dL (3.4-4.8); Alkaline Phosphatase 73 U/L (40-110); Anion Gap 19 mmol/L (10-20); BUN (Urea Nitrogen) 76 mg/dL (8.4-25.7); Bilirubin, Total 0.2 mg/dL (0.2-1.2); Calc. Creatinine Clearance 0 mL/min (70-130); Calcium 7.8 mg/dL (7.8-10.44); Carbon Dioxide 22 mmol/L (23-31); Chloride 99 mmol/L (98-107); Estimated GFR 9; Globulin 4.4 g/dL (2.4-3.5); Glucose 348 mg/dL (80-115); Potassium 4.5 mmol/L (3.5-5.1); Protein, Total 8.1 g/dL (5.8-8.1); Sodium 135 mmol/L (136-145)
[2022-09-07 18:08] LABS: #Basophils 0.1 thou/uL (0.0-0.2); #Eosinphils 0.5 thou/uL (0.0-0.7); #Lymphocytes 2.2 thou/uL (1.20-3.40); #Monocytes 0.7 thou/uL (0.11-0.59); #Neutrophils 6.8 thou/uL (1.40-6.50); %Basophils 0.9 % (0.0-1.0); %Eosinophils 5.1 % (0.0-10.0); %Lymphocytes 21.2 % (21.0-51.0); %Monocytes 6.4 % (0.0-10.0); %Neutrophils 66.3 % (42.0-75.0)
[2022-09-07] MEDS ORDERED: Lidocaine 1% w/Epinephrine 1:100K 20 ML VIAL ONE (19:23)
[2022-09-07] MEDS ORDERED: Furosemide 20 MG/2 ML VIAL ONE (19:37)
[2022-09-07 19:47] LABS: Bacteria/HPF None Seen HPF (None Seen); Bilirubin Negative (Negative); Blood, Urine Negative (Negative); Clarity Clear (Clear); Glucose, Urine (Dipstick) 500 mg/dL (Negative); Ketone, Urine Negative (Negative); Leukocyte Negative Leu/uL (Negative); Nitrite Negative (Negative); Protein, Urine (Dipstick) 50 mg/dL (Neg-Trace); RBC/HPF None Seen HPF (0-3); Specific Gravity, Urine 1.009 (1.002-1.036); Squamous Epithelial 0-3 HPF (0-3); Urobilinogen Normal mg/dL (Less than 2); WBC/HPF None Seen HPF (0-3); pH, Urine 6.5 (5.0-9.0)
[2022-09-07] MEDS ORDERED: Dextrose 50% Abboject 50 ML SYRINGE SLOW IVP PRN (19:56)
[2022-09-07] MEDS ORDERED: Ondansetron ODT 4 MG TAB PO PRN (19:56)
[2022-09-07] MEDS ORDERED: HumaLOG 300 UNITS/3 ML VIAL SC PRN (19:56)
[2022-09-07] MEDS ORDERED: Dextrose 5% in Water 1,000 ML IV PRN (19:56)
[2022-09-07] MEDS ORDERED: Ondansetron PF 4 MG/2 ML Vial IVP PRN (19:56)
[2022-09-07] MEDS ORDERED: Pantoprazole 40 MG VIAL ONE (20:37)
[2022-09-07] MEDS ORDERED: Fluticasone Propionate Nasal Spray 16 gm Bottle NASAL PRN (22:50)
[2022-09-07] MEDS ORDERED: hydrALAZINE 25 MG TAB PO SCH (23:00)
[2022-09-07] MEDS ORDERED: Famotidine 20 MG TAB PO SCH (23:00)
[2022-09-07] MEDS ORDERED: Amlodipine 10 MG TAB PO SCH (23:00)
[2022-09-07] MEDS ORDERED: Tamsulosin HCl 0.4 MG CAP PO SCH (23:00)
[2022-09-08 03:36] VITALS: BMI 32.1
[2022-09-08 05:15] LABS: INR-International Normal Ratio 1.2; Prothrombin Time 16.1 sec (12.0-14.7)
[2022-09-08 05:16] LABS: PTT 32.2 sec (22.9-36.1)
[2022-09-08 05:21] LABS: #Eosinphils 0.5 thou/uL (0.0-0.7); #Lymphocytes 2.4 thou/uL (1.20-3.40); #Monocytes 0.7 thou/uL (0.11-0.59); #Neutrophils 6.2 thou/uL (1.40-6.50); %Basophils 0.4 % (0.0-1.0); %Eosinophils 5.2 % (0.0-10.0); %Lymphocytes 24.8 % (21.0-51.0); %Monocytes 7.2 % (0.0-10.0); %Neutrophils 62.5 % (42.0-75.0); Mean Corpuscular HGB CONC 33.2 g/dL (32.0-36.0); Mean Corpuscular Hemoglobin 28.1 pg (27.0-31.0); Mean Corpuscular Volume 84.6 fl (78.0-98.0); Mean Platelet Volume 7.9 fL (7.4-10.4); Platelet Count 302 10x3/uL (130-400); RBC Distribution Width 15.5 % (11.5-14.5); Red Blood Cell (RBC) Count 2.14 mill/uL (4.70-6.10); White Blood Cell (WBC) Count 9.9 10x3/uL (4.8-10.8)
[2022-09-08 05:47] LABS: HBSAB Concentration Less than 8.00 mIU/mL; HBSAg Index 0.24 S/CO (0-0.99); Hep B Core Total Ab Non-Reactive (NonReactive); Hep B Core Total Index 0.12 S/CO (0-0.79); Hep B Surf AB Non-Reactive (NonReactive); Hep B Surf Ag Non-Reactive S/CO (NonReactive)
[2022-09-08 05:54] LABS: Hep C IgG Ab Reflex HepC Qnt (NonReactive)
[2022-09-08 05:55] LABS: Hep C Index 17.18 S/CO (0-0.79)
[2022-09-08 06:24] LABS: ALT (SGPT) 44 U/L (8-55); AST (SGOT) 53 U/L (5-34); Albumin 3.5 g/dL (3.4-4.8); Alkaline Phosphatase 52 U/L (40-110); Anion Gap 18 mmol/L (10-20); BUN (Urea Nitrogen) 73 mg/dL (8.4-25.7); Bilirubin, Total 0.2 mg/dL (0.2-1.2); Calc. Creatinine Clearance 18 mL/min (70-130); Calcium 7.4 mg/dL (7.8-10.44); Carbon Dioxide 21 mmol/L (23-31); Chloride 102 mmol/L (98-107); Estimated GFR 9; Globulin 3.5 g/dL (2.4-3.5); Glucose 165 mg/dL (80-115); Potassium 4.4 mmol/L (3.5-5.1); Sodium 137 mmol/L (136-145)
[2022-09-08] MEDS: Mometasone/Formoterol 200/5 60 PUFF INH SCH ×2 (07:28→18:20)
[2022-09-08] MEDS: cloNIDine 0.1 MG TAB PO SCH ×2 (09:52→21:27)
[2022-09-08] MEDS: Fenofibrate Nanocrystallized 145 MG TAB PO SCH (09:52)
[2022-09-08] MEDS: hydrALAZINE 25 MG TAB PO SCH ×3 (09:52→21:27)
[2022-09-08] MEDS: Insulin Glargine 30 UNITS/0.3 ML VIAL SC SCH (10:58)
[2022-09-08] MEDS ORDERED: Fluticasone Propionate Nasal Spray 16 gm Bottle NASAL PRN (17:00)
[2022-09-08] MEDS ORDERED: Propofol 500 MG/50 ML VIAL ONE (18:18)
[2022-09-08] MEDS ORDERED: FENTANYL 50 MCG/ML 1 ML VIAL ONE ×2 (18:18→18:22)
[2022-09-08] MEDS ORDERED: Bupivacaine HCl 0.5%/Epinephrine 1:200,000/PF 30 ml Vial ONE (18:26)
[2022-09-08] MEDS ORDERED: Ondansetron PF 4 MG/2 ML Vial ONE ×2 (18:46→18:52)
[2022-09-08] MEDS ORDERED: PROPOFOL 200 MG/20 ML VIAL ONE (18:52)
[2022-09-08] MEDS: Famotidine 20 MG TAB PO SCH (21:27)
[2022-09-08] MEDS: Amlodipine 10 MG TAB PO SCH (21:28)
[2022-09-08] MEDS: Tamsulosin HCl 0.4 MG CAP PO SCH (21:28)
[2022-09-08] MEDS ORDERED: Morphine 2 MG/ML VIAL SLOW IVP PRN ×2 (21:44→21:45)
[2022-09-09 06:13] LABS: #Eosinphils 0.4 thou/uL (0.0-0.7); #Lymphocytes 1.6 thou/uL (1.20-3.40); #Monocytes 0.8 thou/uL (0.11-0.59); #Neutrophils 6.5 thou/uL (1.40-6.50); %Eosinophils 4.5 % (0.0-10.0); %Lymphocytes 17.4 % (21.0-51.0); %Monocytes 8.4 % (0.0-10.0); %Neutrophils 69.7 % (42.0-75.0); Hemoglobin 7.2 g/dL (14.0-18.0); Mean Corpuscular HGB CONC 32.9 g/dL (32.0-36.0); Mean Corpuscular Hemoglobin 28.2 pg (27.0-31.0); Mean Corpuscular Volume 85.8 fl (78.0-98.0); Platelet Count 292 10x3/uL (130-400); RBC Distribution Width 15.1 % (11.5-14.5); Red Blood Cell (RBC) Count 2.56 mill/uL (4.70-6.10); White Blood Cell (WBC) Count 9.3 10x3/uL (4.8-10.8)
[2022-09-09 06:17] LABS: ALT (SGPT) 44 U/L (8-55); AST (SGOT) 57 U/L (5-34); Albumin 3.2 g/dL (3.4-4.8); Alkaline Phosphatase 39 U/L (40-110); Anion Gap 17 mmol/L (10-20); BUN (Urea Nitrogen) 69 mg/dL (8.4-25.7); Bilirubin, Total 0.2 mg/dL (0.2-1.2); Calc. Creatinine Clearance 17 mL/min (70-130); Calcium 7.5 mg/dL (7.8-10.44); Carbon Dioxide 20 mmol/L (23-31); Chloride 104 mmol/L (98-107); Estimated GFR 8; Globulin 4.1 g/dL (2.4-3.5); Glucose 178 mg/dL (80-115); Potassium 4.6 mmol/L (3.5-5.1); Protein, Total 7.3 g/dL (5.8-8.1); Sodium 136 mmol/L (136-145)
[2022-09-09] MEDS: Mometasone/Formoterol 200/5 60 PUFF INH SCH ×2 (07:17→18:25)
[2022-09-09] MEDS: Insulin Glargine 30 UNITS/0.3 ML VIAL SC SCH (08:32)
[2022-09-09] MEDS: Acetaminophen 325 MG TAB PO PRN ×3 (08:48→20:37)
[2022-09-09] MEDS: cloNIDine 0.1 MG TAB PO SCH ×2 (09:00→20:38)
[2022-09-09] MEDS: hydrALAZINE 25 MG TAB PO SCH ×3 (09:00→20:37)
[2022-09-09] MEDS: Fenofibrate Nanocrystallized 145 MG TAB PO SCH (15:37)
[2022-09-09] MEDS: Tamsulosin HCl 0.4 MG CAP PO SCH (20:37)
[2022-09-09] MEDS: Famotidine 20 MG TAB PO SCH (20:37)
[2022-09-09] MEDS: Amlodipine 10 MG TAB PO SCH (20:38)
[2022-09-10 00:58] LABS: Anion Gap 15 mmol/L (10-20); BUN (Urea Nitrogen) 48 mg/dL (8.4-25.7); Calc. Creatinine Clearance 21 mL/min (70-130); Calcium 7.5 mg/dL (7.8-10.44); Carbon Dioxide 25 mmol/L (23-31); Chloride 99 mmol/L (98-107); Estimated GFR 10; Glucose 266 mg/dL (80-115); Magnesium 2.1 mg/dL (1.6-2.6); Phosphorus 4.8 mg/dL (2.3-4.7); Potassium 3.9 mmol/L (3.5-5.1); Sodium 135 mmol/L (136-145)
[2022-09-10 05:25] LABS: #Basophils 0.1 thou/uL (0.0-0.2); #Eosinphils 0.4 thou/uL (0.0-0.7); #Monocytes 0.7 thou/uL (0.11-0.59); #Neutrophils 4.9 thou/uL (1.40-6.50); %Basophils 0.7 % (0.0-1.0); %Eosinophils 5.4 % (0.0-10.0); %Lymphocytes 24.8 % (21.0-51.0); %Monocytes 8.6 % (0.0-10.0); %Neutrophils 60.5 % (42.0-75.0); Hemoglobin 7.7 g/dL (14.0-18.0); Mean Corpuscular HGB CONC 33.8 g/dL (32.0-36.0); Mean Corpuscular Hemoglobin 29.2 pg (27.0-31.0); Mean Corpuscular Volume 86.4 fl (78.0-98.0); Mean Platelet Volume 7.6 fL (7.4-10.4); Platelet Count 279 10x3/uL (130-400); RBC Distribution Width 15.1 % (11.5-14.5); Red Blood Cell (RBC) Count 2.62 mill/uL (4.70-6.10); White Blood Cell (WBC) Count 8.1 10x3/uL (4.8-10.8)
[2022-09-10 05:44] LABS: ALT (SGPT) 31 U/L (8-55); AST (SGOT) 46 U/L (5-34); Albumin 3.1 g/dL (3.4-4.8); Alkaline Phosphatase 49 U/L (40-110); Anion Gap 14 mmol/L (10-20); BUN (Urea Nitrogen) 48 mg/dL (8.4-25.7); Bilirubin, Total 0.2 mg/dL (0.2-1.2); Calc. Creatinine Clearance 20 mL/min (70-130); Calcium 7.4 mg/dL (7.8-10.44); Carbon Dioxide 25 mmol/L (23-31); Chloride 100 mmol/L (98-107); Estimated GFR 10; Globulin 4.2 g/dL (2.4-3.5); Glucose 215 mg/dL (80-115); Protein, Total 7.3 g/dL (5.8-8.1); Sodium 135 mmol/L (136-145)
[2022-09-10] MEDS: HumaLOG 300 UNITS/3 ML VIAL SC PRN ×2 (05:59→11:06)
[2022-09-10] MEDS: Mometasone/Formoterol 200/5 60 PUFF INH SCH ×2 (07:14→18:05)
[2022-09-10] MEDS: Fenofibrate Nanocrystallized 145 MG TAB PO SCH (08:52)
[2022-09-10] MEDS: cloNIDine 0.1 MG TAB PO SCH ×2 (08:53→20:50)
[2022-09-10] MEDS: hydrALAZINE 25 MG TAB PO SCH ×3 (08:53→20:50)
[2022-09-10] MEDS: Insulin Glargine 30 UNITS/0.3 ML VIAL SC SCH (08:53)
[2022-09-10] MEDS ORDERED: Tuberculin PPD 0.1 ML VIAL I-DERMAL SCH (17:00)
[2022-09-10] MEDS: Famotidine 20 MG TAB PO SCH (20:50)
[2022-09-10] MEDS: Tamsulosin HCl 0.4 MG CAP PO SCH (20:51)
[2022-09-10] MEDS: Amlodipine 10 MG TAB PO SCH (20:51)
[2022-09-11] MEDS: Mometasone/Formoterol 200/5 60 PUFF INH SCH ×2 (06:50→19:10)
[2022-09-11] MEDS ORDERED: Heparin 10,000 UNITS/ 10 ML VIAL ONE (08:47)
[2022-09-11] MEDS ORDERED: EPOETIN ALFA-EPBX (ESRD) 10,000 UNIT/ML VIAL IVP SCH (09:00)
[2022-09-11] MEDS: Fenofibrate Nanocrystallized 145 MG TAB PO SCH (11:18)
[2022-09-11] MEDS: Insulin Glargine 30 UNITS/0.3 ML VIAL SC SCH (11:18)
[2022-09-11] MEDS: Multivit, Therapeutic 1 TAB PO SCH (11:18)
[2022-09-11] MEDS: hydrALAZINE 25 MG TAB PO SCH ×3 (11:18→20:52)
[2022-09-11] MEDS: cloNIDine 0.1 MG TAB PO SCH ×2 (11:18→20:51)
[2022-09-11] MEDS: Montelukast Sodium 10 mg Tablet PO SCH (11:18)
[2022-09-11 11:37] LABS: HCV RNA, log10 4.537 (.); Hep C PCR-Quant 34400 IU/mL (.)
[2022-09-11] MEDS: HumaLOG 300 UNITS/3 ML VIAL SC PRN (17:57)
[2022-09-11] MEDS: Acetaminophen 325 MG TAB PO PRN (17:58)
[2022-09-11] MEDS ORDERED: Senokot S 8.6-50 MG TAB PO PRN (20:05)
[2022-09-11] MEDS ORDERED: Bisacodyl 5 MG TAB PO PRN (20:05)
[2022-09-11] MEDS: Famotidine 20 MG TAB PO SCH (20:51)
[2022-09-11] MEDS: Amlodipine 10 MG TAB PO SCH (20:51)
[2022-09-11] MEDS: Tamsulosin HCl 0.4 MG CAP PO SCH (20:51)
[2022-09-12 05:29] LABS: #Basophils 0.1 thou/uL (0.0-0.2); #Eosinphils 0.7 thou/uL (0.0-0.7); #Lymphocytes 2.7 thou/uL (1.20-3.40); #Neutrophils 6.4 thou/uL (1.40-6.50); %Eosinophils 6.5 % (0.0-10.0); %Lymphocytes 24.8 % (21.0-51.0); %Monocytes 8.9 % (0.0-10.0); %Neutrophils 58.9 % (42.0-75.0); Hemoglobin 7.6 g/dL (14.0-18.0); Mean Corpuscular HGB CONC 32.4 g/dL (32.0-36.0); Mean Corpuscular Hemoglobin 28.1 pg (27.0-31.0); Mean Corpuscular Volume 86.7 fl (78.0-98.0); Mean Platelet Volume 7.5 fL (7.4-10.4); Platelet Count 285 10x3/uL (130-400); RBC Distribution Width 14.9 % (11.5-14.5); White Blood Cell (WBC) Count 10.9 10x3/uL (4.8-10.8)
[2022-09-12 05:55] LABS: Albumin 3.4 g/dL (3.4-4.8); Anion Gap 13 mmol/L (10-20); BUN (Urea Nitrogen) 43 mg/dL (8.4-25.7); Calc. Creatinine Clearance 21 mL/min (70-130); Calcium 7.6 mg/dL (7.8-10.44); Carbon Dioxide 25 mmol/L (23-31); Chloride 98 mmol/L (98-107); Estimated GFR 11; Glucose 173 mg/dL (80-115); Phosphorus 4.7 mg/dL (2.3-4.7); Potassium 3.8 mmol/L (3.5-5.1); Sodium 132 mmol/L (136-145)
[2022-09-12] MEDS: Mometasone/Formoterol 200/5 60 PUFF INH SCH (08:19)
[2022-09-12] MEDS ORDERED: Regadenoson 0.4 MG/5 ML SYRINGE ONE (08:55)
[2022-09-12] MEDS: Insulin Glargine 30 UNITS/0.3 ML VIAL SC SCH (09:00)
[2022-09-12 12:37] VITALS: TEMP 98
[2022-09-12] MEDS: cloNIDine 0.1 MG TAB PO SCH (13:06)
[2022-09-12] MEDS: hydrALAZINE 25 MG TAB PO SCH ×2 (13:06→15:11)
[2022-09-12] MEDS: Fenofibrate Nanocrystallized 145 MG TAB PO SCH (15:10)
[2022-09-12] MEDS: Montelukast Sodium 10 mg Tablet PO SCH (15:11)
[2022-09-12] MEDS: Multivit, Therapeutic 1 TAB PO SCH (15:11)
[2022-09-12 15:15] VITALS: BP 155/87
[2022-09-12] MEDS ORDERED: EPOETIN ALFA-EPBX (ESRD) 10,000 UNIT/ML VIAL IVP SCH (15:45)
[2022-09-13] MEDS ORDERED: READ PPD TEST SITE PO SCH (09:00)
== END 2022-09-12 17:35 | disposition home or self-care (01) | DRG 673 ==
LOC: ERS 15:46 → 2SW 19:12 → OBSVTOIN 09-08 06:33
PROVIDERS: ADMIT Internal Medicine; ATTEND Internal Medicine
PROC: 0JH63XZ Insertion of Tunneled Vascular Access Device into Chest Subcutaneous Tissue and Fascia, Percutaneous Approach (ICD-10-PCS; principal; 2022-09-08)
PROC: B5181ZA Fluoroscopy of Superior Vena Cava using Low Osmolar Contrast, Guidance (ICD-10-PCS; 2022-09-08)
PROC: B548ZZA Ultrasonography of Superior Vena Cava, Guidance (ICD-10-PCS; 2022-09-08)
PROC: 30233N1 Transfusion of Nonautologous Red Blood Cells into Peripheral Vein, Percutaneous Approach (ICD-10-PCS; 2022-09-08)
PROC: 5A1D70Z Performance of Urinary Filtration, Intermittent, Less than 6 Hours Per Day (ICD-10-PCS; 2022-09-11)
DX: I12.0 Hypertensive chronic kidney disease with stage 5 chronic kidney disease or end stage renal disease (principal); N18.6 End stage renal disease; N17.9 Acute kidney failure, unspecified; E87.20 Acidosis, unspecified; I47.1 Supraventricular tachycardia; Z66 Do not resuscitate; Z20.822 Contact with and (suspected) exposure to COVID-19; E11.22 Type 2 diabetes mellitus with diabetic chronic kidney disease; N40.0 Benign prostatic hyperplasia without lower urinary tract symptoms; E11.65 Type 2 diabetes mellitus with hyperglycemia; D63.1 Anemia in chronic kidney disease; E66.9 Obesity, unspecified; J44.9 Chronic obstructive pulmonary disease, unspecified; Z88.8 Allergy status to other drugs, medicaments and biological substances; Z91.041 Radiographic dye allergy status; Z91.040 Latex allergy status; Z79.899 Other long term (current) drug therapy; Z79.02 Long term (current) use of antithrombotics/antiplatelets; Z79.4 Long term (current) use of insulin; Z68.30 Body mass index [BMI] 30.0-30.9, adult
CPT/HCPCS: 36415; 36416; 36430; 71045; 78452; 80048; 80053; 80069; 81003; 81015; 83735; 84100; 84443; 85025; 85610; 85730; 86580; 86704; 86850; 86900; 86901; 87522; 93005; 93010; 93017; 93306; 94664; A9500; C1752; C9113; G0378; J1642; J1644; J1815; J1940; J2272; J2405; J2704; J2785; J3010; P9016; Q5105

== ENCOUNTER 2022-09-17 10:25 | Inpatient (IN) | payer OTHER, MEDICARE ==
[2022-09-17 11:15] LABS: #Basophils 0.1 thou/uL (0.0-0.2); #Eosinphils 0.3 thou/uL (0.0-0.7); #Lymphocytes 1.4 thou/uL (1.20-3.40); #Monocytes 0.8 thou/uL (0.11-0.59); #Neutrophils 8.7 thou/uL (1.40-6.50); %Basophils 0.5 % (0.0-1.0); %Eosinophils 3.1 % (0.0-10.0); %Lymphocytes 12.7 % (21.0-51.0); %Monocytes 6.9 % (0.0-10.0); %Neutrophils 76.9 % (42.0-75.0); Hemoglobin 7.6 g/dL (14.0-18.0); Mean Corpuscular HGB CONC 31.1 g/dL (32.0-36.0); Mean Corpuscular Hemoglobin 26.6 pg (27.0-31.0); Mean Corpuscular Volume 85.5 fl (78.0-98.0); Mean Platelet Volume 7.3 fL (7.4-10.4); Platelet Count 382 10x3/uL (130-400); RBC Distribution Width 14.6 % (11.5-14.5); Red Blood Cell (RBC) Count 2.85 mill/uL (4.70-6.10); White Blood Cell (WBC) Count 11.2 10x3/uL (4.8-10.8)
[2022-09-17] MEDS ORDERED: Ondansetron PF 4 MG/2 ML Vial ONE (11:15)
[2022-09-17] MEDS ORDERED: Morphine 4 MG/ML VIAL ONE ×2 (11:15→15:03)
[2022-09-17 11:39] LABS: ALT (SGPT) 32 U/L (8-55); AST (SGOT) 43 U/L (5-34); Acetaminophen Less than 10.0 mcg/mL (10.0-30.0); Albumin 3.6 g/dL (3.4-4.8); Alcohol Less than 10 mg/dL (Less than 10); Alkaline Phosphatase 57 U/L (40-110); Anion Gap 17 mmol/L (10-20); BUN (Urea Nitrogen) 44 mg/dL (8.4-25.7); Bilirubin, Total 0.3 mg/dL (0.2-1.2); Calc. Creatinine Clearance 0 mL/min (70-130); Calcium 7.7 mg/dL (7.8-10.44); Carbon Dioxide 24 mmol/L (23-31); Chloride 97 mmol/L (98-107); Estimated GFR 11; Glucose 218 mg/dL (80-115); Lipase 180 U/L (8-78); Potassium 3.7 mmol/L (3.5-5.1); Protein, Total 7.6 g/dL (5.8-8.1); Salicylate Less than 8.0 mg/dL (15.0-30.0); Sodium 134 mmol/L (136-145)
[2022-09-17 15:13] LABS: Troponin I 0.023 ng/mL (< 0.028)
[2022-09-17] MEDS ORDERED: Acetaminophen 325 MG TAB PO PRN (15:53)
[2022-09-17] MEDS ORDERED: Dextrose 50% Abboject 50 ML SYRINGE SLOW IVP PRN (15:53)
[2022-09-17] MEDS ORDERED: hydrALAZINE 20 MG/ML VIAL SLOW IVP PRN (15:53)
[2022-09-17] MEDS ORDERED: Dextrose 5% in Water 1,000 ML IV PRN (15:53)
[2022-09-17] MEDS ORDERED: HumaLOG 300 UNITS/3 ML VIAL SC PRN (15:53)
[2022-09-17 15:58] VITALS: BMI 30.9
[2022-09-17] MEDS: HYDROcodone/Acetaminophen 10/325 mg Tablet PO PRN ×2 (16:13→21:03)
[2022-09-17 17:31] LABS: Troponin I 0.018 ng/mL (< 0.028)
[2022-09-17] MEDS ORDERED: Fluticasone Propionate Nasal Spray 16 gm Bottle NASAL PRN (18:52)
[2022-09-17] MEDS ORDERED: Mometasone 200 MCG/Formoterol 5 MCG 120 PUFF INHALER INH PRN (18:54)
[2022-09-17] MEDS ORDERED: Albuterol 200 PUFF (6.7GM INHALER) INH PRN (18:55)
[2022-09-17] MEDS: Morphine 4 MG/ML VIAL SLOW IVP PRN (19:44)
[2022-09-17] MEDS: hydrALAZINE 25 MG TAB PO SCH (21:04)
[2022-09-17] MEDS: Amlodipine 10 MG TAB PO SCH (21:05)
[2022-09-17] MEDS: Clopidogrel Bisulfate 75 MG TAB PO SCH (21:05)
[2022-09-17] MEDS: Famotidine 20 MG TAB PO SCH (21:05)
[2022-09-17] MEDS: cloNIDine 0.1 MG TAB PO SCH (21:05)
[2022-09-17] MEDS: Tamsulosin HCl 0.4 MG CAP PO SCH (21:05)
[2022-09-18] MEDS: HYDROcodone/Acetaminophen 10/325 mg Tablet PO PRN ×4 (01:44→21:12)
[2022-09-18] MEDS: Morphine 4 MG/ML VIAL SLOW IVP PRN ×3 (03:41→23:19)
[2022-09-18 05:39] LABS: #Eosinphils 0.4 thou/uL (0.0-0.7); #Lymphocytes 2.1 thou/uL (1.20-3.40); #Monocytes 0.9 thou/uL (0.11-0.59); #Neutrophils 5.7 thou/uL (1.40-6.50); %Basophils 0.3 % (0.0-1.0); %Eosinophils 4.1 % (0.0-10.0); %Lymphocytes 22.8 % (21.0-51.0); %Monocytes 9.8 % (0.0-10.0); Hemoglobin 7.5 g/dL (14.0-18.0); Mean Corpuscular HGB CONC 32.3 g/dL (32.0-36.0); Mean Corpuscular Hemoglobin 27.6 pg (27.0-31.0); Mean Corpuscular Volume 85.5 fl (78.0-98.0); Mean Platelet Volume 6.8 fL (7.4-10.4); Platelet Count 306 10x3/uL (130-400); RBC Distribution Width 14.2 % (11.5-14.5); Red Blood Cell (RBC) Count 2.71 mill/uL (4.70-6.10)
[2022-09-18 05:59] LABS: Anion Gap 16 mmol/L (10-20); BUN (Urea Nitrogen) 51 mg/dL (8.4-25.7); Calc. Creatinine Clearance 19 mL/min (70-130); Calcium 7.3 mg/dL (7.8-10.44); Carbon Dioxide 24 mmol/L (23-31); Chloride 97 mmol/L (98-107); Estimated GFR 10; Glucose 219 mg/dL (80-115); Potassium 3.6 mmol/L (3.5-5.1); Sodium 133 mmol/L (136-145)
[2022-09-18] MEDS: hydrALAZINE 25 MG TAB PO SCH ×3 (08:56→21:15)
[2022-09-18] MEDS: cloNIDine 0.1 MG TAB PO SCH ×2 (08:56→21:14)
[2022-09-18] MEDS: Fenofibrate Nanocrystallized 145 MG TAB PO SCH (08:57)
[2022-09-18] MEDS: Multivit, Therapeutic 1 TAB PO SCH (08:57)
[2022-09-18] MEDS: Insulin Glargine 30 UNITS/0.3 ML VIAL SC SCH (08:57)
[2022-09-18] MEDS: Montelukast Sodium 10 mg Tablet PO SCH (08:57)
[2022-09-18] MEDS ORDERED: Heparin 10,000 UNITS/ 10 ML VIAL ONE (11:54)
[2022-09-18] MEDS: Clopidogrel Bisulfate 75 MG TAB PO SCH (21:14)
[2022-09-18] MEDS: Famotidine 20 MG TAB PO SCH (21:14)
[2022-09-18] MEDS: Amlodipine 10 MG TAB PO SCH (21:14)
[2022-09-18] MEDS: Tamsulosin HCl 0.4 MG CAP PO SCH (21:15)
[2022-09-19] MEDS: HYDROcodone/Acetaminophen 10/325 mg Tablet PO PRN ×4 (05:59→22:09)
[2022-09-19] MEDS: cloNIDine 0.1 MG TAB PO SCH ×2 (09:33→19:56)
[2022-09-19] MEDS: Insulin Glargine 30 UNITS/0.3 ML VIAL SC SCH (09:34)
[2022-09-19] MEDS: hydrALAZINE 25 MG TAB PO SCH ×3 (09:34→19:55)
[2022-09-19] MEDS: Fenofibrate Nanocrystallized 145 MG TAB PO SCH (09:34)
[2022-09-19] MEDS: Montelukast Sodium 10 mg Tablet PO SCH (09:35)
[2022-09-19] MEDS: Multivit, Therapeutic 1 TAB PO SCH (09:35)
[2022-09-19] MEDS: HumaLOG 300 UNITS/3 ML VIAL SC PRN (14:01)
[2022-09-19] MEDS: Morphine 4 MG/ML VIAL SLOW IVP PRN ×2 (14:37→19:59)
[2022-09-19] MEDS: Amlodipine 10 MG TAB PO SCH (19:55)
[2022-09-19] MEDS: Tamsulosin HCl 0.4 MG CAP PO SCH (19:55)
[2022-09-19] MEDS: Famotidine 20 MG TAB PO SCH (19:55)
[2022-09-19] MEDS: Clopidogrel Bisulfate 75 MG TAB PO SCH (19:56)
[2022-09-20] MEDS: HYDROcodone/Acetaminophen 10/325 mg Tablet PO PRN ×2 (03:45→13:20)
[2022-09-20] MEDS: Morphine 4 MG/ML VIAL SLOW IVP PRN ×2 (06:07→17:30)
[2022-09-20 07:00] LABS: #Eosinphils 0.4 thou/uL (0.0-0.7); #Lymphocytes 1.3 thou/uL (1.20-3.40); #Monocytes 1.2 thou/uL (0.11-0.59); #Neutrophils 9.2 thou/uL (1.40-6.50); %Basophils 0.2 % (0.0-1.0); %Eosinophils 3.4 % (0.0-10.0); %Neutrophils 75.4 % (42.0-75.0); Mean Corpuscular HGB CONC 32.4 g/dL (32.0-36.0); Mean Corpuscular Hemoglobin 27.3 pg (27.0-31.0); Mean Corpuscular Volume 84.2 fl (78.0-98.0); Mean Platelet Volume 7.1 fL (7.4-10.4); Platelet Count 308 10x3/uL (130-400); RBC Distribution Width 14.7 % (11.5-14.5); Red Blood Cell (RBC) Count 2.91 mill/uL (4.70-6.10); White Blood Cell (WBC) Count 12.1 10x3/uL (4.8-10.8)
[2022-09-20 07:18] LABS: Anion Gap 17 mmol/L (10-20); BUN (Urea Nitrogen) 42 mg/dL (8.4-25.7); Calc. Creatinine Clearance 19 mL/min (70-130); Calcium 8.4 mg/dL (7.8-10.44); Carbon Dioxide 22 mmol/L (23-31); Chloride 97 mmol/L (98-107); Estimated GFR 10; Glucose 176 mg/dL (80-115); Sodium 132 mmol/L (136-145)
[2022-09-20] MEDS ORDERED: EPOETIN ALFA-EPBX (ESRD) 10,000 UNIT/ML VIAL IVP SCH (09:00)
[2022-09-20] MEDS ORDERED: Heparin 10,000 UNITS/ 10 ML VIAL ONE (09:05)
[2022-09-20] MEDS ORDERED: predniSONE 20 MG TAB PO SCH (11:30)
[2022-09-20] MEDS: cloNIDine 0.1 MG TAB PO SCH ×2 (13:18→21:44)
[2022-09-20] MEDS: hydrALAZINE 25 MG TAB PO SCH ×3 (13:19→21:46)
[2022-09-20] MEDS: Fenofibrate Nanocrystallized 145 MG TAB PO SCH (13:19)
[2022-09-20] MEDS: Multivit, Therapeutic 1 TAB PO SCH (13:19)
[2022-09-20] MEDS: Montelukast Sodium 10 mg Tablet PO SCH (13:19)
[2022-09-20] MEDS: Insulin Glargine 30 UNITS/0.3 ML VIAL SC SCH (15:17)
[2022-09-20] MEDS: Tamsulosin HCl 0.4 MG CAP PO SCH (21:44)
[2022-09-20] MEDS: Clopidogrel Bisulfate 75 MG TAB PO SCH (21:44)
[2022-09-20] MEDS: Amlodipine 10 MG TAB PO SCH (21:45)
[2022-09-20] MEDS: Famotidine 20 MG TAB PO SCH (21:45)
[2022-09-21 05:10] LABS: #Monocytes 0.8 thou/uL (0.11-0.59); #Neutrophils 10.3 thou/uL (1.40-6.50); %Basophils 0.2 % (0.0-1.0); %Eosinophils 0.2 % (0.0-10.0); %Lymphocytes 7.8 % (21.0-51.0); %Monocytes 6.5 % (0.0-10.0); %Neutrophils 85.3 % (42.0-75.0); Hemoglobin 7.9 g/dL (14.0-18.0); Mean Corpuscular HGB CONC 31.6 g/dL (32.0-36.0); Mean Corpuscular Hemoglobin 26.9 pg (27.0-31.0); Mean Corpuscular Volume 85.1 fl (78.0-98.0); Mean Platelet Volume 7.4 fL (7.4-10.4); Platelet Count 302 10x3/uL (130-400); RBC Distribution Width 14.5 % (11.5-14.5); Red Blood Cell (RBC) Count 2.92 mill/uL (4.70-6.10); White Blood Cell (WBC) Count 12.1 10x3/uL (4.8-10.8)
[2022-09-21 05:39] LABS: Anion Gap 15 mmol/L (10-20); BUN (Urea Nitrogen) 35 mg/dL (8.4-25.7); Calc. Creatinine Clearance 21 mL/min (70-130); Calcium 8.7 mg/dL (7.8-10.44); Carbon Dioxide 24 mmol/L (23-31); Chloride 95 mmol/L (98-107); Estimated GFR 11; Glucose 239 mg/dL (80-115); Potassium 4.3 mmol/L (3.5-5.1); Sodium 130 mmol/L (136-145)
[2022-09-21] MEDS: HumaLOG 300 UNITS/3 ML VIAL SC PRN (05:51)
[2022-09-21 07:31] VITALS: BP 127/75; TEMP 97.5
[2022-09-21] MEDS: Insulin Glargine 30 UNITS/0.3 ML VIAL SC SCH (09:06)
[2022-09-21] MEDS: hydrALAZINE 25 MG TAB PO SCH (09:07)
[2022-09-21] MEDS: cloNIDine 0.1 MG TAB PO SCH (09:07)
[2022-09-21] MEDS: Montelukast Sodium 10 mg Tablet PO SCH (09:07)
[2022-09-21] MEDS: Multivit, Therapeutic 1 TAB PO SCH (09:08)
[2022-09-21] MEDS: Fenofibrate Nanocrystallized 145 MG TAB PO SCH (09:08)
== END 2022-09-21 10:32 | disposition home or self-care (01) | DRG 640 ==
LOC: ERS 10:25 → 2SW 15:26 → OBSVTOIN 09-19 10:45
PROVIDERS: ADMIT Emergency Medicine; ATTEND Emergency Medicine
PROC: 30243N1 Transfusion of Nonautologous Red Blood Cells into Central Vein, Percutaneous Approach (ICD-10-PCS; 2022-09-17)
PROC: 5A1D70Z Performance of Urinary Filtration, Intermittent, Less than 6 Hours Per Day (ICD-10-PCS; principal; 2022-09-18)
DX: E86.9 Volume depletion, unspecified (principal); N18.6 End stage renal disease; S22.42XA Multiple fractures of ribs, left side, initial encounter for closed fracture; I12.0 Hypertensive chronic kidney disease with stage 5 chronic kidney disease or end stage renal disease; J98.11 Atelectasis; I48.92 Unspecified atrial flutter; J45.21 Mild intermittent asthma with (acute) exacerbation; E11.22 Type 2 diabetes mellitus with diabetic chronic kidney disease; N40.0 Benign prostatic hyperplasia without lower urinary tract symptoms; W01.198A Fall on same level from slipping, tripping and stumbling with subsequent striking against other object, initial encounter; D63.1 Anemia in chronic kidney disease; E87.1 Hypo-osmolality and hyponatremia; I48.0 Paroxysmal atrial fibrillation; T44.6X5A Adverse effect of alpha-adrenoreceptor antagonists, initial encounter; Z99.2 Dependence on renal dialysis; Z88.8 Allergy status to other drugs, medicaments and biological substances; Z88.6 Allergy status to analgesic agent; Z91.041 Radiographic dye allergy status; Z91.040 Latex allergy status; Z79.899 Other long term (current) drug therapy; Z79.02 Long term (current) use of antithrombotics/antiplatelets; Z79.51 Long term (current) use of inhaled steroids; Z79.4 Long term (current) use of insulin; Z80.3 Family history of malignant neoplasm of breast; Z84.1 Family history of disorders of kidney and ureter
CPT/HCPCS: 36415; 36416; 36430; 70450; 71045; 72125; 80048; 80053; 80307; 83690; 84484; 85025; 86850; 86900; 86901; 90935; 93005; 96374; 96375; 96376; G0257; G0378; J1644; J1815; J2270; J2405; J7512; P9016

== ENCOUNTER 2023-12-31 07:47 | Emergency (ER) | payer MEDICARE ==
[2023-12-31] MEDS ORDERED: Acetaminophen 500 MG TAB ONE (08:13)
[2023-12-31] MEDS ORDERED: Ipratropium/Albuterol 3 ML NEB ONE (08:13)
[2023-12-31] MEDS ORDERED: predniSONE 20 MG TAB ONE ×2 (08:23→08:27)
[2023-12-31 09:08] LABS: Influenza A by NAA Not Detected (NotDetected); Influenza B by NAA Not Detected (NotDetected); SARS-CoV-2 NAA Rapid Test Not Detected (NotDetected)
== END 2023-12-31 09:33 | disposition home or self-care (01) ==
LOC: ERS 07:47
DX: J45.901 Unspecified asthma with (acute) exacerbation (principal); E11.9 Type 2 diabetes mellitus without complications; I10 Essential (primary) hypertension; Z79.899 Other long term (current) drug therapy
CPT/HCPCS: 0240U; 71046; 93005; J7512; J7620

== ENCOUNTER 2024-02-29 09:16 | Observation (INO) | payer MEDICARE ==
[2024-02-29 11:05] LABS: #Basophils 0.04 10x3/uL (0.0-0.2); %Basophils 0.5 % (0.0-1.0); %Eosinophils 6.5 % (0.0-10.0); %Lymphocytes 12.7 % (21.0-51.0); %Monocytes 6.6 % (0.0-10.0); %Neutrophils 72.9 % (42.0-75.0); Hematocrit 37.5 % (42.0-52.0); Hemoglobin 12.8 g/dL (14.0-18.0); Mean Corpuscular HGB CONC 34.1 g/dL (32.0-36.0); Mean Corpuscular Hemoglobin 32.4 pg (27.0-31.0); Mean Corpuscular Volume 94.9 fL (78.0-98.0); Platelet Count 286 10x3/uL (130-400); RBC Distribution Width 16.1 % (11.5-14.5); Red Blood Cell (RBC) Count 3.95 mill/uL (4.70-6.10)
[2024-02-29 11:20] LABS: ALT (SGPT) 23 U/L (8-55); AST (SGOT) 28 U/L (5-34); Albumin 3.6 g/dL (3.4-4.8); Alkaline Phosphatase 58 U/L (40-110); Anion Gap 16 mmol/L (10-20); BUN (Urea Nitrogen) 29 mg/dL (8.4-25.7); Bilirubin, Total 0.5 mg/dL (0.2-1.2); Calc. Creatinine Clearance 0 mL/min (70-130); Calcium 8.7 mg/dL (7.8-10.44); Carbon Dioxide 30 mmol/L (23-31); Chloride 94 mmol/L (98-107); Estimated GFR 10; Globulin 4.7 g/dL (2.4-3.5); Glucose 84 mg/dL (80-115); Magnesium 2.1 mg/dL (1.6-2.6); Potassium 4.3 mmol/L (3.5-5.1); Protein, Total 8.3 g/dL (5.8-8.1); Sodium 136 mmol/L (136-145)
[2024-02-29 11:22] LABS: Troponin I Less than 0.010 ng/mL (< 0.028)
[2024-02-29 13:33] LABS: Troponin I Less than 0.010 ng/mL (< 0.028)
[2024-02-29] MEDS ORDERED: Ondansetron PF 4 MG/2 ML Vial IVP PRN (15:29)
[2024-02-29] MEDS ORDERED: Acetaminophen 325 MG TAB PO PRN (15:29)
[2024-02-29] MEDS ORDERED: Senokot S 8.6-50 MG TAB PO PRN (15:29)
[2024-02-29] MEDS ORDERED: Dextrose 50% Abboject 50 ML SYRINGE SLOW IVP PRN (15:31)
[2024-02-29] MEDS ORDERED: Insulin Lispro 100 UNIT/ML 10 ML VIAL SC PRN (15:31)
[2024-02-29] MEDS ORDERED: Glucagon 1 MG/ML KIT IM PRN (15:31)
[2024-02-29] MEDS ORDERED: Dextrose 5% in Water 1,000 ML IV PRN (15:31)
[2024-02-29] MEDS ORDERED: Albuterol 2.5 MG (3 mL) NEB NEB PRN (15:56)
[2024-02-29] MEDS ORDERED: Mometasone 200 MCG/Formoterol 5 MCG 120 PUFF INHALER INH PRN (15:57)
[2024-02-29 19:08] LABS: Troponin I 0.015 ng/mL (< 0.028)
[2024-02-29 21:00] VITALS: BMI 31.1
[2024-02-29] MEDS: traMADol HCl 50 MG TAB PO PRN (21:40)
[2024-02-29] MEDS: cloNIDine 0.1 MG TAB PO SCH (21:41)
[2024-02-29] MEDS: Amlodipine 10 MG TAB PO SCH (21:41)
[2024-02-29] MEDS: Tamsulosin HCl 0.4 MG CAP PO SCH (21:41)
[2024-02-29] MEDS: Famotidine 20 MG TAB PO SCH (21:41)
[2024-02-29] MEDS: Clopidogrel Bisulfate 75 MG TAB PO SCH (21:41)
[2024-02-29] MEDS: hydrALAZINE 25 MG TAB PO SCH (21:41)
[2024-02-29] MEDS: Heparin 5,000 UNITS/ML VIAL SC SCH (21:41)
[2024-03-01 06:12] LABS: #Basophils 0.04 10x3/uL (0.0-0.2); %Basophils 0.4 % (0.0-1.0); %Eosinophils 8.3 % (0.0-10.0); %Lymphocytes 22.1 % (21.0-51.0); %Monocytes 7.2 % (0.0-10.0); %Neutrophils 61.3 % (42.0-75.0); Hematocrit 38.6 % (42.0-52.0); Hemoglobin 12.7 g/dL (14.0-18.0); Mean Corpuscular HGB CONC 32.9 g/dL (32.0-36.0); Mean Corpuscular Hemoglobin 32.1 pg (27.0-31.0); Mean Corpuscular Volume 97.5 fL (78.0-98.0); Mean Platelet Volume 9.2 fL (7.4-10.4); Platelet Count 291 10x3/uL (130-400); RBC Distribution Width 16.3 % (11.5-14.5); Red Blood Cell (RBC) Count 3.96 mill/uL (4.70-6.10)
[2024-03-01 06:43] LABS: ALT (SGPT) 22 U/L (8-55); AST (SGOT) 31 U/L (5-34); Albumin 3.3 g/dL (3.4-4.8); Alkaline Phosphatase 43 U/L (40-110); Anion Gap 19 mmol/L (10-20); BUN (Urea Nitrogen) 47 mg/dL (8.4-25.7); Bilirubin, Total 0.5 mg/dL (0.2-1.2); Calc. Creatinine Clearance 14 mL/min (70-130); Calcium 8.4 mg/dL (7.8-10.44); Carbon Dioxide 25 mmol/L (23-31); Chloride 97 mmol/L (98-107); Estimated GFR 7; Globulin 4.7 g/dL (2.4-3.5); Glucose 103 mg/dL (80-115); Potassium 5.2 mmol/L (3.5-5.1); Sodium 136 mmol/L (136-145)
[2024-03-01] MEDS: Fenofibrate Nanocrystallized 145 MG TAB PO SCH (09:46)
[2024-03-01] MEDS: Montelukast Sodium 10 mg Tablet PO SCH (09:47)
[2024-03-01 15:21] VITALS: BP 143/86; TEMP 97.6
== END 2024-03-01 15:33 | disposition home or self-care (01) ==
LOC: ERS 09:16 → ERHOLD 14:50 → 2NO 20:07
PROVIDERS: ADMIT Internal Medicine; ATTEND Internal Medicine
DX: R55 Syncope and collapse (principal); I12.0 Hypertensive chronic kidney disease with stage 5 chronic kidney disease or end stage renal disease; N18.6 End stage renal disease; E11.22 Type 2 diabetes mellitus with diabetic chronic kidney disease; Z99.2 Dependence on renal dialysis; N40.0 Benign prostatic hyperplasia without lower urinary tract symptoms; I10 Essential (primary) hypertension; J45.909 Unspecified asthma, uncomplicated; J42 Unspecified chronic bronchitis; I25.10 Atherosclerotic heart disease of native coronary artery without angina pectoris; Z79.82 Long term (current) use of aspirin; Z88.6 Allergy status to analgesic agent; Z91.041 Radiographic dye allergy status; Z91.040 Latex allergy status; Z79.4 Long term (current) use of insulin; Z79.899 Other long term (current) drug therapy; Z79.02 Long term (current) use of antithrombotics/antiplatelets; Z79.51 Long term (current) use of inhaled steroids
CPT/HCPCS: 36415; 71045; 80053; 83735; 84484; 85025; 93005; G0378

== ENCOUNTER 2024-03-03 08:03 | Inpatient (IN) | payer MEDICARE ==
[2024-03-03 08:57] LABS: #Basophils 0.05 10x3/uL (0.0-0.2); %Basophils 0.6 % (0.0-1.0); %Lymphocytes 13.3 % (21.0-51.0); %Monocytes 6.7 % (0.0-10.0); %Neutrophils 73.9 % (42.0-75.0); Hematocrit 37.6 % (42.0-52.0); Hemoglobin 12.5 g/dL (14.0-18.0); Mean Corpuscular HGB CONC 33.2 g/dL (32.0-36.0); Mean Corpuscular Hemoglobin 32.1 pg (27.0-31.0); Mean Corpuscular Volume 96.4 fL (78.0-98.0); Mean Platelet Volume 9.9 fL (7.4-10.4); Platelet Count 312 10x3/uL (130-400); RBC Distribution Width 16.2 % (11.5-14.5)
[2024-03-03 09:16] LABS: ALT (SGPT) 27 U/L (8-55); AST (SGOT) 33 U/L (5-34); Albumin 3.6 g/dL (3.4-4.8); Alkaline Phosphatase 57 U/L (40-110); Anion Gap 16 mmol/L (10-20); BUN (Urea Nitrogen) 57 mg/dL (8.4-25.7); Bilirubin, Total 0.4 mg/dL (0.2-1.2); Calc. Creatinine Clearance 0 mL/min (70-130); Calcium 8.8 mg/dL (7.8-10.44); Carbon Dioxide 28 mmol/L (23-31); Chloride 98 mmol/L (98-107); Estimated GFR 6; Globulin 5.2 g/dL (2.4-3.5); Glucose 116 mg/dL (80-115); Potassium 4.5 mmol/L (3.5-5.1); Protein, Total 8.8 g/dL (5.8-8.1); Sodium 137 mmol/L (136-145)
[2024-03-03 09:20] LABS: Troponin I 0.014 ng/mL (< 0.028)
[2024-03-03] MEDS ORDERED: Insulin Glargine 30 UNITS/0.3 ML VIAL SC PRN (12:37)
[2024-03-03] MEDS ORDERED: Lorazepam 2 MG/ML VIAL SLOW IVP PRN (12:39)
[2024-03-03] MEDS ORDERED: Senokot S 8.6-50 MG TAB PO PRN (12:39)
[2024-03-03] MEDS ORDERED: Dextrose 5% in Water 1,000 ML IV PRN (12:39)
[2024-03-03] MEDS ORDERED: Glucagon 1 MG/ML KIT IM PRN (12:39)
[2024-03-03] MEDS ORDERED: Acetaminophen 650 MG Suppository PR PRN (12:39)
[2024-03-03] MEDS ORDERED: Dextrose 50% Abboject 50 ML SYRINGE SLOW IVP PRN (12:39)
[2024-03-03] MEDS ORDERED: Insulin Regular, Human 100 UNIT/ML 10 ML VIAL SC PRN (12:39)
[2024-03-03] MEDS ORDERED: Acetaminophen 325 MG TAB ONE (13:05)
[2024-03-03] MEDS: Acetaminophen 325 MG TAB PO SCH (13:35)
[2024-03-03] MEDS ORDERED: Albuterol 200 PUFF (6.7GM INHALER) INH PRN (13:37)
[2024-03-03] MEDS ORDERED: Mometasone 200 MCG/Formoterol 5 MCG 120 PUFF INHALER INH PRN (13:49)
[2024-03-03] MEDS ORDERED: FLUTICASONE PROPIONATE EA NARE PRN (14:12)
[2024-03-03 17:28] VITALS: BMI 30.5
[2024-03-03] MEDS: Sevelamer Carbonate 800 MG TAB PO SCH (17:35)
[2024-03-03] MEDS: Spironolactone 25 MG TAB PO SCH (17:35)
[2024-03-03] MEDS ORDERED: Clopidogrel Bisulfate 75 MG TAB PO SCH (21:00)
[2024-03-03] MEDS ORDERED: Sofosbuvir/Velpatasvir [Epclusa 400 Mg-100 Mg Tablet] PO SCH (21:00)
[2024-03-03] MEDS: predniSONE 50 MG TAB PO SCH (22:06)
[2024-03-03] MEDS: Famotidine 20 MG TAB PO SCH (22:06)
[2024-03-03] MEDS: Amlodipine 10 MG TAB PO SCH (22:07)
[2024-03-03] MEDS: hydrALAZINE 25 MG TAB PO SCH (22:07)
[2024-03-04] MEDS: Insulin Lispro 100 UNIT/ML 10 ML VIAL SC PRN ×2 (06:09→21:03)
[2024-03-04 08:50] LABS: #Basophils Less than 0.03 10x3/uL (0.0-0.2); #Eosinphils Less than 0.03 10x3/uL (0.0-0.7); %Basophils 0.2 % (0.0-1.0); %Lymphocytes 7.2 % (21.0-51.0); %Monocytes 1.7 % (0.0-10.0); %Neutrophils 90.5 % (42.0-75.0); Hematocrit 39.5 % (42.0-52.0); Hemoglobin 12.9 g/dL (14.0-18.0); Mean Corpuscular HGB CONC 32.7 g/dL (32.0-36.0); Mean Corpuscular Hemoglobin 32.1 pg (27.0-31.0); Mean Corpuscular Volume 98.3 fL (78.0-98.0); Mean Platelet Volume 9.5 fL (7.4-10.4); Platelet Count 270 10x3/uL (130-400); RBC Distribution Width 15.8 % (11.5-14.5); Red Blood Cell (RBC) Count 4.02 mill/uL (4.70-6.10)
[2024-03-04 09:18] LABS: Anion Gap 16 mmol/L (10-20); BUN (Urea Nitrogen) 73 mg/dL (8.4-25.7); Calc. Creatinine Clearance 11 mL/min (70-130); Calcium 8.7 mg/dL (7.8-10.44); Carbon Dioxide 22 mmol/L (23-31); Chloride 100 mmol/L (98-107); Estimated GFR 5; Glucose 148 mg/dL (80-115); Potassium 6.1 mmol/L (3.5-5.1); Sodium 132 mmol/L (136-145)
[2024-03-04] MEDS: Loratadine 10 MG TAB PO SCH (09:25)
[2024-03-04] MEDS: Multivit, Therapeutic 1 TAB PO SCH (09:25)
[2024-03-04] MEDS: Alogliptin 6.25 MG TAB PO SCH (09:26)
[2024-03-04] MEDS: Fenofibrate Nanocrystallized 145 MG TAB PO SCH (09:26)
[2024-03-04 10:26] LABS: HBSAB Concentration 57.66 mIU/mL; Hep B Core Total Ab NONREACTIVE (NonReactive); Hep B Core Total Index 0.22 S/CO (0-0.79); Hep B Surf AB REACTIVE (NonReactive); Hep B Surf Ag NONREACTIVE S/CO (NonReactive); Hep C IgG Ab Reflex HepC Qnt S/CO (NonReactive); Hep C Index 14.36 S/CO (0-0.79)
[2024-03-04] MEDS ORDERED: Communication Order-Pharmacy FS SCH (18:30)
[2024-03-04] MEDS ORDERED: Sofosbuvir/Velpatasvir [Epclusa 400 Mg-100 Mg Tablet] PO SCH (19:30)
[2024-03-05] MEDS ORDERED: Fluticasone Propionate Nasal Spray 16 gm Bottle NASAL PRN (07:25)
[2024-03-05] MEDS ORDERED: Insulin Glargine 30 UNITS/0.3 ML VIAL SC SCH (09:00)
[2024-03-05] MEDS ORDERED: Heparin 10,000 UNITS/ 10 ML VIAL ONE ×2 (09:35→10:24)
[2024-03-05 10:00] VITALS: TEMP 98.1
[2024-03-05] MEDS ORDERED: Nitroglycerin 50 MG/250 ML BOT 0 ML ONE (10:24)
[2024-03-05] MEDS ORDERED: Adenosine 6 mg (2 mL) VIAL ONE (10:24)
[2024-03-05] MEDS ORDERED: Verapamil 5 MG/2 ML VIAL ONE (10:25)
[2024-03-05] MEDS ORDERED: diphenhydrAMINE 50 MG/ML VIAL ONE (10:33)
[2024-03-05] MEDS ORDERED: fentaNYL 50 mcg/mL 1 mL Vial ONE (10:46)
[2024-03-05] MEDS ORDERED: Midazolam HCl 2 mg/2 ml Vial ONE (10:46)
[2024-03-05] MEDS ORDERED: Sodium Chloride 0.9% 200 ML IV PRN (11:24)
[2024-03-05 11:37] LABS: Anion Gap 18 mmol/L (10-20); BUN (Urea Nitrogen) 66 mg/dL (8.4-25.7); Calc. Creatinine Clearance 14 mL/min (70-130); Calcium 8.8 mg/dL (7.8-10.44); Carbon Dioxide 24 mmol/L (23-31); Chloride 96 mmol/L (98-107); Estimated GFR 6; Glucose 142 mg/dL (80-115); Potassium 5.5 mmol/L (3.5-5.1); Sodium 132 mmol/L (136-145)
[2024-03-05 17:54] VITALS: BP 138/91
[2024-03-05] MEDS: Acetaminophen/Codeine 30-300mg Tablet PO PRN (18:31)
[2024-03-06 18:13] LABS: Hep C PCR-Quant HCV Not Detected IU/mL (.)
== END 2024-03-05 19:15 | disposition home or self-care (01) | DRG 286 ==
LOC: ERS 08:03 → ERHOLD 10:53 → 2SE 17:21 → OBSVTOIN 03-04 07:49 → UNDODISIN 03-04 19:30
PROVIDERS: ADMIT Internal Medicine; ATTEND Internal Medicine
PROC: 4A00X4Z Measurement of Central Nervous Electrical Activity, External Approach (ICD-10-PCS; principal; 2024-03-04)
PROC: 4A023N7 Measurement of Cardiac Sampling and Pressure, Left Heart, Percutaneous Approach (ICD-10-PCS; 2024-03-05)
PROC: B2151ZZ Fluoroscopy of Left Heart using Low Osmolar Contrast (ICD-10-PCS; 2024-03-05)
PROC: B2111ZZ Fluoroscopy of Multiple Coronary Arteries using Low Osmolar Contrast (ICD-10-PCS; 2024-03-05)
DX: R55 Syncope and collapse (principal); N18.6 End stage renal disease; E87.1 Hypo-osmolality and hyponatremia; I50.32 Chronic diastolic (congestive) heart failure; I13.2 Hypertensive heart and chronic kidney disease with heart failure and with stage 5 chronic kidney disease, or end stage renal disease; E87.20 Acidosis, unspecified; E87.5 Hyperkalemia; E11.22 Type 2 diabetes mellitus with diabetic chronic kidney disease; E78.5 Hyperlipidemia, unspecified; B18.2 Chronic viral hepatitis C; Z86.73 Personal history of transient ischemic attack (TIA), and cerebral infarction without residual deficits; Z99.2 Dependence on renal dialysis; Z79.82 Long term (current) use of aspirin; Z79.899 Other long term (current) drug therapy; J44.9 Chronic obstructive pulmonary disease, unspecified; N40.0 Benign prostatic hyperplasia without lower urinary tract symptoms; E66.9 Obesity, unspecified; Z68.31 Body mass index [BMI] 31.0-31.9, adult; D63.1 Anemia in chronic kidney disease
CPT/HCPCS: 36415; 36416; 36556; 70450; 70551; 71045; 80048; 80053; 83735; 83880; 84146; 84484; 85025; 86704; 86706; 86803; 87340; 87522; 90935; 93005; 93306; 93458; 95700; 95711; 95819; 95957; 99152; 99153; C1769; C1887; C1894; G0257; G0378; J0153; J1200; J1644; J1815; J2250; J3010; J7512

== ENCOUNTER 2024-04-06 07:44 | Emergency (ER) | payer MEDICARE ==
[2024-04-06] MEDS ORDERED: methylPREDNISolone Sod Succ 40 MG VIAL ONE (08:14)
[2024-04-06] MEDS ORDERED: diphenhydrAMINE 50 MG/ML VIAL ONE (08:14)
[2024-04-06] MEDS ORDERED: Famotidine/PF 20 mg/2ml Vial ONE (08:15)
[2024-04-06 08:47] LABS: #Basophils 0.03 10x3/uL (0.0-0.2); %Basophils 0.2 % (0.0-1.0); %Eosinophils 4.7 % (0.0-10.0); %Lymphocytes 16.8 % (21.0-51.0); %Monocytes 5.5 % (0.0-10.0); %Neutrophils 71.7 % (42.0-75.0); Hematocrit 26.3 % (42.0-52.0); Hemoglobin 8.2 g/dL (14.0-18.0); Mean Corpuscular HGB CONC 31.2 g/dL (32.0-36.0); Mean Corpuscular Hemoglobin 31.5 pg (27.0-31.0); Mean Corpuscular Volume 101.2 fL (78.0-98.0); Mean Platelet Volume 9.1 fL (7.4-10.4); Platelet Count 322 10x3/uL (130-400); RBC Distribution Width 15.4 % (11.5-14.5)
[2024-04-06] MEDS ORDERED: Iopamidol-370 76% 500 ML MDV (1 ML CHARGE) ONE (09:00)
[2024-04-06 09:01] LABS: ALT (SGPT) 16 U/L (8-55); AST (SGOT) 24 U/L (5-34); Albumin 3.2 g/dL (3.4-4.8); Alkaline Phosphatase 46 U/L (40-110); Anion Gap 17 mmol/L (10-20); BUN (Urea Nitrogen) 42 mg/dL (8.4-25.7); Bilirubin, Total 0.3 mg/dL (0.2-1.2); Calc. Creatinine Clearance 0 mL/min (70-130); Calcium 7.9 mg/dL (7.8-10.44); Carbon Dioxide 25 mmol/L (23-31); Chloride 101 mmol/L (98-107); Estimated GFR 7; Globulin 3.8 g/dL (2.4-3.5); Glucose 67 mg/dL (80-115); Potassium 3.6 mmol/L (3.5-5.1); Sodium 139 mmol/L (136-145)
[2024-04-06 09:02] LABS: INR-International Normal Ratio 1.1; PTT 24.6 sec (22.9-36.1); Prothrombin Time 14.2 sec (12.0-14.7)
[2024-04-06 09:07] LABS: Troponin I 0.012 ng/mL (< 0.028)
== END 2024-04-06 12:15 | disposition home or self-care (01) ==
LOC: ERS 07:44
DX: R07.9 Chest pain, unspecified (principal); J44.9 Chronic obstructive pulmonary disease, unspecified; I12.0 Hypertensive chronic kidney disease with stage 5 chronic kidney disease or end stage renal disease; E11.22 Type 2 diabetes mellitus with diabetic chronic kidney disease; N18.6 End stage renal disease
CPT/HCPCS: 71275; 74174; 80053; 83880; 84484; 85025; 85610; 85730; 93005; J1200; J2919; J3490; Q9967; 36415; 96374; 96375

== ENCOUNTER 2024-06-09 01:53 | Emergency (ER) | payer MEDICARE ==
[2024-06-09] MEDS ORDERED: Dexamethasone 10 MG/ML VIAL ONE (03:05)
== END 2024-06-09 03:43 | disposition home or self-care (01) ==
LOC: ERS 01:53
DX: J01.90 Acute sinusitis, unspecified (principal); I12.0 Hypertensive chronic kidney disease with stage 5 chronic kidney disease or end stage renal disease; E11.22 Type 2 diabetes mellitus with diabetic chronic kidney disease; N18.6 End stage renal disease; Z55.0 Illiteracy and low-level literacy
CPT/HCPCS: 96372; 99284; J1100

== ENCOUNTER 2024-06-15 13:48 | Emergency (ER) | payer MEDICARE ==
[2024-06-15 15:48] LABS: #Basophils 0.04 10x3/uL (0.0-0.2); %Basophils 0.2 % (0.0-1.0); %Eosinophils 2.5 % (0.0-10.0); %Lymphocytes 12.2 % (21.0-51.0); %Neutrophils 78.4 % (42.0-75.0); Hematocrit 23.6 % (42.0-52.0); Hemoglobin 7.2 g/dL (14.0-18.0); Mean Corpuscular HGB CONC 30.5 g/dL (32.0-36.0); Mean Corpuscular Hemoglobin 27.6 pg (27.0-31.0); Mean Corpuscular Volume 90.4 fL (78.0-98.0); Mean Platelet Volume 9.9 fL (7.4-10.4); Platelet Count 355 10x3/uL (130-400); RBC Distribution Width 18.7 % (11.5-14.5); Red Blood Cell (RBC) Count 2.61 mill/uL (4.70-6.10)
[2024-06-15 16:08] LABS: Troponin I 0.027 ng/mL (< 0.028)
[2024-06-15 16:26] LABS: ALT (SGPT) 21 U/L (8-55); AST (SGOT) 30 U/L (5-34); Albumin 3.6 g/dL (3.4-4.8); Alkaline Phosphatase 42 U/L (40-110); Anion Gap 16 mmol/L (10-20); BUN (Urea Nitrogen) 67 mg/dL (8.4-25.7); Bilirubin, Total 0.2 mg/dL (0.2-1.2); Calc. Creatinine Clearance 0 mL/min (70-130); Calcium 7.8 mg/dL (7.8-10.44); Carbon Dioxide 22 mmol/L (23-31); Chloride 105 mmol/L (98-107); Estimated GFR 7; Globulin 3.5 g/dL (2.4-3.5); Glucose 63 mg/dL (80-115); Potassium 4.3 mmol/L (3.5-5.1); Protein, Total 7.1 g/dL (5.8-8.1); Sodium 139 mmol/L (136-145)
== END 2024-06-15 17:07 | disposition home or self-care (01) ==
LOC: ERS 13:48
DX: J18.9 Pneumonia, unspecified organism (principal); I12.0 Hypertensive chronic kidney disease with stage 5 chronic kidney disease or end stage renal disease; E11.22 Type 2 diabetes mellitus with diabetic chronic kidney disease; N18.6 End stage renal disease; Z99.2 Dependence on renal dialysis; Z79.899 Other long term (current) drug therapy
CPT/HCPCS: 36415; 71045; 80053; 84484; 85025; 87428; 93005

== ENCOUNTER 2024-06-23 10:04 | Emergency (ER) | payer MEDICARE ==
[2024-06-23 10:44] LABS: #Basophils 0.04 10x3/uL (0.0-0.2); %Basophils 0.4 % (0.0-1.0); %Eosinophils 5.8 % (0.0-10.0); %Lymphocytes 14.5 % (21.0-51.0); %Monocytes 5.5 % (0.0-10.0); %Neutrophils 72.8 % (42.0-75.0); Hematocrit 23.3 % (42.0-52.0); Hemoglobin 7.3 g/dL (14.0-18.0); Mean Corpuscular HGB CONC 31.3 g/dL (32.0-36.0); Mean Corpuscular Hemoglobin 28.1 pg (27.0-31.0); Mean Corpuscular Volume 89.6 fL (78.0-98.0); Mean Platelet Volume 8.9 fL (7.4-10.4); Platelet Count 335 10x3/uL (130-400); RBC Distribution Width 18.6 % (11.5-14.5)
[2024-06-23 11:01] LABS: Anion Gap 12 mmol/L (10-20); BUN (Urea Nitrogen) 18 mg/dL (8.4-25.7); Calc. Creatinine Clearance 0 mL/min (70-130); Calcium 9.7 mg/dL (7.8-10.44); Carbon Dioxide 29 mmol/L (23-31); Chloride 101 mmol/L (98-107); Estimated GFR 14; Glucose 86 mg/dL (80-115); Potassium 3.4 mmol/L (3.5-5.1); Sodium 139 mmol/L (136-145)
== END 2024-06-23 16:30 | disposition home or self-care (01) ==
LOC: ERS 10:04
DX: I12.0 Hypertensive chronic kidney disease with stage 5 chronic kidney disease or end stage renal disease (principal); E11.22 Type 2 diabetes mellitus with diabetic chronic kidney disease; D63.1 Anemia in chronic kidney disease; N18.6 End stage renal disease; J44.9 Chronic obstructive pulmonary disease, unspecified
CPT/HCPCS: 36430; 80048; 85025 ×2; 86850; 86900; 86901; 86920; 93005; P9016; 36415; 99283

== ENCOUNTER 2024-08-14 09:30 | Outpatient (CLI) | payer MEDICARE | END 2024-08-14 09:31 | disposition home or self-care (01) | LOC: RAD 09:30 | PROVIDERS: ATTEND Internal Medicine Critical Care Medicine | DX: R06.00 Dyspnea, unspecified (principal); Q79.1 Other congenital malformations of diaphragm | CPT/HCPCS: 71046 ==

== ENCOUNTER 2025-01-13 03:20 | Emergency (ER) | payer MEDICARE ==
[2025-01-13 04:07] LABS: #Basophils 0.08 10x3/uL (0.0-0.2); #Eosinophils 1.00 10x3/uL (0.0-0.7); #Monocytes 0.65 10x3/uL (0.11-0.59); #Neutrophils 4.77 10x3/uL (1.40-6.50); %Basophils 1.0 % (0.0-1.0); %Eosinophils 11.9 % (0.0-10.0); %Lymphocytes 22.1 % (21.0-51.0); %Monocytes 7.7 % (0.0-10.0); %Neutrophils 56.8 % (42.0-75.0); Hematocrit 42.3 % (42.0-52.0); Hemoglobin 13.9 g/dL (14.0-18.0); Mean Corpuscular Hemoglobin 31.7 pg (27.0-31.0); Mean Corpuscular Volume 96.6 fL (78.0-98.0); Platelet Count 279 10x3/uL (130-400); Red Blood Cell (RBC) Count 4.38 mill/uL (4.70-6.10); White Blood Cell (WBC) Count 8.39 10x3/uL (4.8-10.8)
[2025-01-13 04:27] LABS: Troponin I 0.015 ng/mL (< 0.028)
[2025-01-13 05:24] LABS: ALT (SGPT) 24 U/L (Less than 45); AST (SGOT) 31 U/L (11-34); Albumin 3.6 g/dL (3.1-4.5); Alkaline Phosphatase 74 U/L (40-110); Anion Gap 19 mmol/L (10-20); BUN (Urea Nitrogen) 42 mg/dL (8.4-25.7); Bilirubin, Total 0.3 mg/dL (0.3-1.2); Calc. Creatinine Clearance 0 mL/min (70-130); Calcium 9.1 mg/dL (7.8-10.44); Carbon Dioxide 26 mmol/L (23-31); Chloride 93 mmol/L (98-107); Globulin 5.1 g/dL (2.4-3.5); Glucose 139 mg/dL (80-115); Potassium 4.4 mmol/L (3.5-5.1); Sodium 134 mmol/L (136-145)
== END 2025-01-13 06:23 | disposition home or self-care (01) ==
LOC: ERS 03:20
DX: J44.1 Chronic obstructive pulmonary disease with (acute) exacerbation (principal); E11.22 Type 2 diabetes mellitus with diabetic chronic kidney disease; N18.6 End stage renal disease; I12.0 Hypertensive chronic kidney disease with stage 5 chronic kidney disease or end stage renal disease; Z99.2 Dependence on renal dialysis; Z86.73 Personal history of transient ischemic attack (TIA), and cerebral infarction without residual deficits
CPT/HCPCS: 71045; 80053; 84484; 85025; 87428; 93005; 96374; 99285; J2919; 36415; J7620

== ENCOUNTER 2025-02-16 09:16 | Emergency (ER) | payer MEDICARE ==
[2025-02-16 09:48] LABS: #Basophils 0.04 10x3/uL (0.0-0.2); #Eosinophils 0.46 10x3/uL (0.0-0.7); #Monocytes 0.42 10x3/uL (0.11-0.59); #Neutrophils 7.48 10x3/uL (1.40-6.50); %Basophils 0.4 % (0.0-1.0); %Eosinophils 4.5 % (0.0-10.0); %Lymphocytes 15.3 % (21.0-51.0); %Monocytes 4.1 % (0.0-10.0); %Neutrophils 73.9 % (42.0-75.0); Hematocrit 38.1 % (42.0-52.0); Hemoglobin 12.4 g/dL (14.0-18.0); Mean Corpuscular Hemoglobin 30.2 pg (27.0-31.0); Mean Corpuscular Volume 92.9 fL (78.0-98.0); Platelet Count 315 10x3/uL (130-400); Red Blood Cell (RBC) Count 4.10 mill/uL (4.70-6.10); White Blood Cell (WBC) Count 10.13 10x3/uL (4.8-10.8)
[2025-02-16] MEDS ORDERED: Albuterol 2.5 MG (0.5 mL) NEB ONE (09:53)
[2025-02-16 10:01] LABS: ALT (SGPT) 16 U/L (Less than 45); AST (SGOT) 32 U/L (11-34); Albumin 3.9 g/dL (3.1-4.5); Alkaline Phosphatase 60 U/L (40-110); Anion Gap 15 mmol/L (10-20); BUN (Urea Nitrogen) 20 mg/dL (8.4-25.7); Bilirubin, Total 0.3 mg/dL (0.3-1.2); Calc. Creatinine Clearance 0 mL/min (70-130); Calcium 9.8 mg/dL (7.8-10.44); Carbon Dioxide 31 mmol/L (23-31); Chloride 94 mmol/L (98-107); Globulin 5.0 g/dL (2.4-3.5); Glucose 123 mg/dL (80-115); Potassium 3.4 mmol/L (3.5-5.1); Sodium 137 mmol/L (136-145)
[2025-02-16] MEDS ORDERED: Ipratropium Bromide 2.5 ml Neb ONE (10:19)
[2025-02-16] MEDS ORDERED: Albuterol 2.5 MG (3 mL) NEB ONE (10:19)
== END 2025-02-16 11:18 | disposition home or self-care (01) ==
LOC: ERS 09:16
DX: J45.901 Unspecified asthma with (acute) exacerbation (principal); E11.22 Type 2 diabetes mellitus with diabetic chronic kidney disease; I12.0 Hypertensive chronic kidney disease with stage 5 chronic kidney disease or end stage renal disease; N18.6 End stage renal disease; J44.1 Chronic obstructive pulmonary disease with (acute) exacerbation; Z79.02 Long term (current) use of antithrombotics/antiplatelets; Z79.51 Long term (current) use of inhaled steroids; Z79.899 Other long term (current) drug therapy
CPT/HCPCS: 71045; 80053; 85025; 93005; 94760; J2919; J7644; 96374; J7611